=== PATIENT | male | born 1935 | race Caucasian/White ===

== ENCOUNTER 2018-06-07 17:11 | Inpatient (IN) | payer MEDICARE, OTHER ==
--- NOTE | 2018-06-07 18:23 | XRAY Report ---
Reason: fever Procedure Date: 06/07/2018 Accession Number: [id number] / [id number] Procedure: XR - Chest 1 View X-Ray CPT Code: 34111 FULL RESULT: EXAM: CHEST RADIOGRAPHY EXAM DATE: 06/07/2018 05:59 PM. CLINICAL HISTORY: Fever, cough x2 days. COMPARISON: None. TECHNIQUE: 1 view. FINDINGS: Lungs/Pleura: Bilateral bronchial wall thickening and peribronchial opacities most notable in mid lung zones. No confluent consolidation or vascular congestion. Mildly elevated right hemidiaphragm. No pneumothorax or pleural effusion. Mediastinum: Normal heart size. Mildly tortuous aorta. Other: No acute fracture evident. IMPRESSION: 1. Consistent with bronchopneumonia. No segmental consolidation. RADIA
[2018-06-07 18:27] LABS: ALBUMIN 3.6 g/dL (3.2-5.5); ALBUMIN/GLOBULIN RATIO 1.8 (1.0-2.2); BILIRUBIN,TOTAL 1.5 mg/dL (0.2-1.0); CALCIUM 9.6 mg/dL (8.5-10.3); CREATININE 1.4 mg/dL (0.6-1.2); TOTAL PROTEIN 5.6 g/dL (6.7-8.2)
[2018-06-07 18:29] LABS: BILIRUBIN,URINE NEGATIVE (NEGATIVE); GLUCOSE, URINE (UA) NEGATIVE (NEGATIVE); KETONES,URINE (UA) NEGATIVE (NEGATIVE); LEUKOCYTE ESTERASE, URINE SMALL (NEGATIVE); NITRITE,URINE NEGATIVE (NEGATIVE); OCCULT BLOOD,URINE NEGATIVE (NEGATIVE); PH,URINE 7.5 PH (5.0-7.5); PROTEIN,URINE NEGATIVE (NEGATIVE); UROBILINOGEN,URINE 0.2 (NORMAL) E.U./dL (NORMAL)
[2018-06-07] MEDS ORDERED: MORPHINE 2 MG/ML SYRINGE IVP STA (18:30)
[2018-06-07] MEDS ORDERED: SODIUM CHLORIDE 0.9% 1,000 ML IV ONE (18:30)
[2018-06-07] MEDS ORDERED: METOCLOPRAMIDE 10 MG/2 ML VIAL IVP STA (18:30)
[2018-06-07 18:31] LABS: CLARITY,URINE CLEAR (CLEAR)
[2018-06-07 18:42] LABS: BASOPHILS % (AUTO) 0.4 %; EOSINOPHILS % (AUTO) 0.4 %; HGB - HEMOGLOBIN 13.3 g/dL (14.0-18.0); LYMPHOCYTES # (AUTO) 4.2 10^3/uL (1.5-3.5); LYMPHOCYTES % (AUTO) 59.8 %; MEAN CORPUSCULAR HGB CONC 33.2 g/dL (32.0-36.0); MEAN CORPUSCULAR VOLUME 87.2 fL (80.0-94.0); MEAN PLATELET VOLUME 11.1 fL (7.4-11.4); MONOCYTES # (AUTO) 0.6 10^3/uL (0.0-1.0); MONOCYTES % (AUTO) 8.9 %; NEUTROPHILS # (AUTO) 2.2 10^3/uL (1.5-6.6); NEUTROPHILS % (AUTO) 30.5 %; PLT - PLATELET COUNT 54 10^3/uL (130-450); RED BLOOD COUNT 4.58 10^6/uL (4.70-6.10); RED CELL DISTRIBUTION WIDTH 18.7 % (12.0-15.0); WHITE BLOOD COUNT 7.1 x10^3/uL (4.8-10.8)
[2018-06-07 18:42] LABS: BACTERIA,URINE Rare /HPF (None Seen); RBC,URINE None Seen /HPF (0-5); SQUAMOUS EPITHELIAL CELL,UR NONE SEEN (<= Few)
[2018-06-07 18:46] LABS: INR 1.2 (0.8-1.2); PT - PROTHROMBIN TIME 13.7 secs (9.9-12.6)
[2018-06-07] MEDS ORDERED: IOPAMIDOL-300 100 ML VIAL ONE (18:46)
[2018-06-07] MEDS ORDERED: IOPAMIDOL-300 100 ML VIAL IVP ONE (19:01)
[2018-06-07 19:21] LABS: PLATELET ESTIMATE, MANUAL DECREASED (<130,000) (NORMAL); PLATELET MORPHOLOGY 1+ GIANT PLATELETS (NORMAL)
--- NOTE | 2018-06-07 19:45 | CT Report ---
Reason: worsening rectal ulcers and pain Procedure Date: 06/07/2018 Accession Number: [id number] / [id number] Procedure: CT - PELVIS W CPT Code: FULL RESULT: EXAM: CT PELVIS EXAM DATE: 06/07/2018 06:59 PM. CLINICAL HISTORY: Worsening rectal ulcers and pain. COMPARISONS: None. TECHNIQUE: Routine helical CT imaging was performed through the pelvis. IV contrast: ISOVUE 300 100mL. Enteric contrast: No. Reconstructions: Coronal and sagittal. In accordance with CT protocol optimization, one or more of the following dose reduction techniques were utilized for this exam: automated exposure control, adjustment of mA and/or KV based on patient size, or use of iterative reconstructive technique. FINDINGS: Visualized Abdominal Organs: Incompletely visualized markedly enlarged spleen is present. Peritoneal Cavity/Bowel: No free fluid or fluid collection. Intrapelvic large and small bowel demonstrates no obstruction or inflammation. Appendix not definitely identified. No pericecal inflammatory changes. Enlarged left paraaortic node measuring at least 1.4 cm (4/1). Pelvic Organs: Urinary bladder is grossly unremarkable. Enlarged heterogeneous prostate is present. Vasculature: No aneurysms or other significant abnormality. Bones: Right femoral head AVN. Other: No perirectal abscesses. A large right hydrocele is present in the scrotum. IMPRESSION: No perirectal or perianal abscesses seen. CT is limited in evaluation for perianal fistulas. If suspected, nonemergent MRI could be performed. Markedly enlarged spleen and retroperitoneal lymphadenopathy. Etiologies such as lymphoma not excluded. Right femoral head AVN. RADIA
[2018-06-07] MEDS ORDERED: cefTRIAXone 1 GM VIAL IVP STA (20:31)
[2018-06-07] MEDS ORDERED: AZITHROMYCIN INJ 500 MG in SODIUM CHLORIDE 0.9% 250 ML IV STA (20:32)
--- NOTE | 2018-06-07 20:43 | ED Physician Documentation ---
History of Present Illness - Stated complaint Stated Complaint: SENT BY - Chief complaint Chief Complaint: General - Additonal information Additional information: 83-year-old male presents the emergency department with generalized weakness, cough, dyspnea and general fatigue which has progressively worsened. The patient has not been eating or drinking as normal. The patient's is having difficulty managing his symptoms at home. The patient has chronic ulcerations of his buttocks and around his rectum which is currently being managed at [facility]. No reports of fever. Symptoms are described as severe. No other associated symptoms Review of Systems Constitutional: reports: Chills, Fatigue Eyes: denies: Discharge Ears: denies: Ear pain Nose: denies: Congestion Throat: denies: Sore throat Cardiac: denies: Chest pain / pressure Respiratory: reports: Dyspnea, Cough, Wheezing GI: denies: Abdominal Pain : denies: Dysuria Skin: reports: Lesions. denies: Rash Musculoskeletal: denies: Neck pain Neurologic: reports: Generalized weakness PD PAST MEDICAL HISTORY - Past Medical History Past Medical History: Yes Cardiovascular: Hypertension - Past Surgical History Past Surgical History: Yes - Present Medications Home Medications: Ambulatory Orders Medication Instructions Recorded Confirmed Furosemide 20 mg PO DAILY 06/07/18 06/07/18 Mycophenolate Mofetil 500 mg PO DAILY 06/07/18 06/07/18 Potassium Chloride 10 meq PO DAILY 06/07/18 06/07/18 Prednisone 7.5 mg PO DAILY 06/07/18 06/07/18 - Allergies Allergies/Adverse Reactions: Allergies Allergy/AdvReac Type Severity Reaction Status Date / Time Sulfa (Sulfonamide Allergy Emesis Verified 06/07/18 18:14 Antibiotics) - Social History Does the pt smoke?: Yes Smoking Status: Former smoker Does the pt drink ETOH?: No Does the pt have substance abuse?: No - Immunizations Immunizations are current?: Yes PD ED PE NORMAL - General General: Other (83-year-old frail-appearing male who is in no significant acute distress) - HEENT HEENT: Atraumatic, PERRL - Neck Neck: Supple, no meningeal sign - Cardiac Cardiac: RRR, Strong equal pulses - Respiratory Respiratory: No respiratory distress. No: Clear bilaterally (Bilateral rhonchi) - Abdomen Abdomen: Soft, Non tender - Male Male : Other (Significant well-managed decubitus ulcers on the sacrum and around the rectum) - Derm Derm: Normal color - Extremities Extremities: No deformity - Neuro Neuro: Alert and oriented X 3, Normal speech Results - Vitals Vitals: Vital Signs - 24 hr 06/07/18 06/07/18 06/07/18 17:24 18:08 18:30 Temperature 37.2 C 37.7 C H Heart Rate 94 94 90 Respiratory 20 16 16 Rate Blood Pressure 107/67 118/74 116/72 O2 Saturation 97 97 96 06/07/18 06/07/18 06/07/18 19:51 20:00 20:30 Temperature 37.2 C Heart Rate 104 H 107 H 100 Respiratory 20 16 14 Rate Blood Pressure 109/66 93/56 L 89/57 L O2 Saturation 99 99 100 Oxygen O2 Source Nasal cannula - Labs Labs: Laboratory Tests 06/07/18 06/07/18 06/07/18 18:10 18:10 18:10 WBC 7.1 RBC 4.58 L Hgb 13.3 L Hct 39.9 L MCV 87.2 MCH 29.0 MCHC 33.2 RDW 18.7 H Plt Count 54 L MPV 11.1 Neut # (Auto) 2.2 Lymph # (Auto) 4.2 H [place] # (Auto) 0.6 Eos # (Auto) 0.0 Baso # (Auto) 0.0 Absolute Nucleated RBC 0.01 Nucleated RBC % 0.2 Manual Slide Review Indicated Platelet Estimate DECREASED (<130,000) Platelet Morphology 1+ GIANT PLATELETS RBC Morph Micro Appear 1+ TEARDROP CELLS PT 13.7 H INR 1.2 APTT 28.0 Sodium 129 L Potassium 4.3 Chloride 89 L Carbon Dioxide 30 Anion Gap 10.0 BUN 32 H Creatinine 1.4 H Estimated GFR (MDRD) 48 L Glucose 110 H Lactic Acid Calcium 9.6 Magnesium Total Bilirubin 1.5 H AST 48 H ALT 23 Alkaline Phosphatase 133 H Total Protein 5.6 L Albumin 3.6 Globulin 2.0 L Albumin/Globulin Ratio 1.8 Lipase 30 Urine Color Urine Clarity Urine pH Ur Specific [place] Urine Protein Urine Glucose (UA) Urine Ketones Urine Occult Blood Urine Nitrite Urine Bilirubin Urine Urobilinogen Ur Leukocyte Esterase Urine RBC Urine WBC Ur Squamous Epith Cells Urine Bacteria Ur Microscopic Review Urine Culture Comments Infectious [place] Assay Influenza A (Rapid) Influenza B (Rapid) 06/07/18 06/07/18 06/07/18 18:10 18:10 18:10 WBC RBC Hgb Hct MCV MCH MCHC RDW Plt Count MPV Neut # (Auto) Lymph # (Auto) [place] # (Auto) Eos # (Auto) Baso # (Auto) Absolute Nucleated RBC Nucleated RBC % Manual Slide Review Platelet Estimate Platelet Morphology RBC Morph Micro Appear PT INR APTT Sodium Potassium Chloride Carbon Dioxide Anion Gap BUN Creatinine Estimated GFR (MDRD) Glucose Lactic Acid 1.3 Calcium Magnesium 1.7 Total Bilirubin AST ALT Alkaline Phosphatase Total Protein Albumin Globulin Albumin/Globulin Ratio Lipase Urine Color Urine Clarity Urine pH Ur Specific [place] Urine Protein Urine Glucose (UA) Urine Ketones Urine Occult Blood Urine Nitrite Urine Bilirubin Urine Urobilinogen Ur Leukocyte Esterase Urine RBC Urine WBC Ur Squamous Epith Cells Urine Bacteria Ur Microscopic Review Urine Culture Comments Infectious [place] Assay NEGATIVE Influenza A (Rapid) Influenza B (Rapid) 06/07/18 06/07/18 18:22 18:46 WBC RBC Hgb Hct MCV MCH MCHC RDW Plt Count MPV Neut # (Auto) Lymph # (Auto) [place] # (Auto) Eos # (Auto) Baso # (Auto) Absolute Nucleated RBC Nucleated RBC % Manual Slide Review Platelet Estimate Platelet Morphology RBC Morph Micro Appear PT INR APTT Sodium Potassium Chloride Carbon Dioxide Anion Gap BUN Creatinine Estimated GFR (MDRD) Glucose Lactic Acid Calcium Magnesium Total Bilirubin AST ALT Alkaline Phosphatase Total Protein Albumin Globulin Albumin/Globulin Ratio Lipase Urine Color YELLOW Urine Clarity CLEAR Urine pH 7.5 Ur Specific [place] 1.010 Urine Protein NEGATIVE Urine Glucose (UA) NEGATIVE Urine Ketones NEGATIVE Urine Occult Blood NEGATIVE Urine Nitrite NEGATIVE Urine Bilirubin NEGATIVE Urine Urobilinogen 0.2 (NORMAL) Ur Leukocyte Esterase SMALL H Urine RBC None Seen Urine WBC 6-10 H Ur Squamous Epith Cells NONE SEEN Urine Bacteria Rare Ur Microscopic Review INDICATED Urine Culture Comments INDICATED Infectious [place] Assay Influenza A (Rapid) Negative Influenza B (Rapid) Negative - Rads (name of study) CXR Radiology: See rad report (1. Consistent with bronchopneumonia. No segmental consolidation. ) CT pelvis Radiology: Final report received, See rad report (IMPRESSION: No perirectal or perianal abscesses seen. CT is limited in evaluation for perianal fistulas. If suspected, nonemergent MRI could be performed. Markedly enlarged spleen and retroperitoneal lymphadenopathy. Etiologies such as lymphoma notexcluded. Right femoral head AVN. ) PD MEDICAL DECISION MAKING - ED course ED course: On reevaluation the patient is resting comfortably and his acute symptoms are most likely secondary to the pneumonia seen on x-ray. Given the patient's multiple comorbidities and decompensation he will require admission to the hospital for ongoing management. I discussed with the patient and his the incidental finding seen on the CT scan and the need for further workup of these lymph nodes and avascular necrosis. They understand and agree. The case was discussed with the hospitalist Dr. Loaiza who accepts the patient onto his service Departure - Departure Disposition: 66 [facility] DC/Xfer Clinical Impression: Abnormal CT of the abdomen, Spleen enlarged, Pulmonary hypertension, Weakness, Hyponatremia, AVN (avascular necrosis of bone) Pneumonia Qualifiers: Pneumonia type: due to unspecified organism Laterality: unspecified laterality Lung location: unspecified part of lung Qualified Code(s): J18.9 - Pneumonia, unspecified organism Decubitus ulcer Qualifiers: Pressure injury location: sacral region Pressure injury stage: stage 2 Qualified Code(s): L89.152 - Pressure ulcer of sacral region, stage 2 Condition: Fair Discharge Date/Time: 06/07/18 21:30
--- NOTE | 2018-06-07 20:50 | HISTORY & PHYSICAL EXAMINATION ---
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 He was found to have a bronchopneumonia see on CXR in ED with midlung zones involvement. 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 His plts were 54K lowest he has been, and was somewhat dehydrates with a cr 1.4, tbili 1.5 and AST of 48. 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 UA shows a mild cystitis. Patient's blood pressures were on the low side with BP at 98/58 and with another sbp 70's showing a map of 57. IVF's started at 175 ml/hr. Patient will be admitted for bronchopneumonia, sepsis, chronic decubitus ulcers that are nonhealing, Acute kidney injury with dehydration. Patient has a history of systemic lupus erythematosus And on chronic steroids with possible immunosuppression. After admission to the floor patient had a witnessed aspiration event where he become cyanotic and blue to his face, was placed in lateral decubitus and suctioned aggressively, CXR shows increased interstitial opacities R>L, placed on NRB and then NC. IV flagyl plus decadron 10 mg IV x1 was ordered as well as duonebs. History - Past Medical History Cardiovascular: reports: Hypertension MRSA Hx?: No Meds/Allgy - Home Medications Home Medications: Ambulatory Orders Medication Instructions Recorded Confirmed Furosemide 20 mg PO DAILY 06/07/18 06/07/18 Mycophenolate Mofetil 500 mg PO DAILY 06/07/18 06/07/18 Potassium Chloride 10 meq PO DAILY 06/07/18 06/07/18 Prednisone 7.5 mg PO DAILY 06/07/18 06/07/18 - Allergies Allergies/Adverse Reactions: Allergies Allergy/AdvReac Type Severity Reaction Status Date / Time Sulfa (Sulfonamide Allergy Emesis Verified 06/07/18 18:14 Antibiotics) Review of Systems - All Other Systems All Other Systems: reports: Reviewed and negative Prior Level of Functionality: Patient is independent and ambulatory with home ADL's Exam - Vital Signs Reviewed Vital Signs: Yes Vital Signs: Vital Signs x48h Temp Pulse Resp BP Pulse Ox 06/07/18 20:30 100 14 89/57 L 100 06/07/18 20:00 107 H 16 93/56 L 99 06/07/18 19:51 37.2 C 104 H 20 109/66 99 06/07/18 18:30 90 16 116/72 96 06/07/18 18:08 37.7 C H 94 16 118/74 97 06/07/18 17:24 37.2 C 94 20 107/67 97 - Physical Exam General Appearance: positive: No acute distress, Alert, Other (Patient is acutely ill-appearing, on baseline 3 L nasal cannula breathing at 97% o2 saturation) Eyes Bilateral: positive: Normal inspection, PERRL, EOMI ENT: positive: ENT inspection nml, Pharynx nml, Dry mucous membranes Neck: positive: Nml inspection, Thyroid nml, No JVD, Trachea midline. negative: Thyromegaly Respiratory: positive: Chest non-tender, No respiratory distress, Rhonchi Cardiovascular: positive: Regular rate & rhythm, No murmur, No gallop Peripheral Pulses: positive: 2+ Abdomen: positive: Non-tender, No organomegaly, Nml bowel sounds, No distention. negative: Tenderness Back: positive: Nml inspection Skin: positive: Color nml, No rash, Warm, Decubitus (Sacrum pressure ulcer stage II with no necrotic borders, white drainage) Extremities: positive: Non-tender, Full ROM, Nml appearance, No pedal edema. negative: Calf tenderness, Joint swelling Neurologic/Psychiatric: positive: Oriented x3, CN's nml (2-12) Sepsis Event Note (H) - Evaluation Current Stage of Sepsis: Sepsis Possible source of Sepsis: positive: Pulmonary Confirmed Source and Organism (if known) of Sepsis: Confirm source presumedly bronchopneumonia - Sepsis Criteria Sepsis Criteria: Recorded Heart Rate greater than 90 bpm, Hematologic: platelets < 100,000; INR > 1.5, or a PTT>60 seconds Conclusion/Plan - Problem List (1) Sepsis Conclusion/Plan: Patient presented with hypotension to a blood pressure of 98/58 along with source of infection at the level of the lung with bronchopneumonia to mid lungs. Lactic acid was only 1.3. Repeat in 6hrs. Patient had blood cultures and urine cultures drawn although a mild cystitis was seen on UA this is asymptomatic and will not aggressively treat although patient is already can be placed on IV Levaquin to treat atypical/typical pneumonia. Labs and workup to follow. Consider placing on early goal-directed therapy and currently on IV fluids to sustain adequate pressures and a map above 60. Qualifiers: Sepsis type: sepsis due to unspecified organism Qualified Code(s): A41.9 - Sepsis, unspecified organism (2) Acute bronchopneumonia Conclusion/Plan: Patient with several day history of worsening fatigue cough and weakness was found to have mid lung zones affected, Will initiate coverage with IV Levaquin for typical and atypical organisms. Obtain strep rapid and throat cultures as well as mycoplasma IgM/IgG serology as patient in the context of history of lupus and immunocompromised with chronic steroids. Placed on existing oxygen supplementation currently on 3 L nasal cannula, patient is hypotensive with renal manifestation unclear if dehydration versus lupus nephritis. Patient does have thrombocytopenia and may be related to lupus versus acute infection. We will continue to monitor. Duo nebs along with pulmonary toileting and incentive spirometry to be initiated. (3) VANESSA (acute kidney injury) Conclusion/Plan: Patient has existing chronic kidney disease stage II that may be related to hypertensive nephropathy versus lupus nephritis. Currently on maintenance steroids. We will continue to monitor and avoid nephrotoxic agents along with IV fluids. Seems like he is a bit dehydrated with some prerenal azotemia hyponatremia noted. (4) CKD (chronic kidney disease) stage 2, GFR 60-89 ml/min Conclusion/Plan: We will continue to monitor renal function. Patient's baseline creatinine was between 0.9-1.0 on review of past labs. Patient's most recent renal panel comparison in June 04 showed a creatinine of 1.2 may have a underlying component of hypertension with prior history of lupus. (5) Acute dehydration Conclusion/Plan: Continue with IV fluids and correction of underlying electrolyte disturbances. Hypotension seen with underlying sepsis, increase IVF's to 175 ml/hr. (6) Decubitus ulcer Conclusion/Plan: Present on admission. Patient has a pressure ulcer stage II to the sacrum which has been managed at [facility] however referral was placed to wound care here at would be with [facility] service. Will obtain consultation. CT pelvis was performed which showed no evidence of perirectal fistulas or abscesses. There w as incidental findings of right femoral avascular necrosis of the head along with splenomegaly and lymphadenopathy, and a large right hydrocele. Qualifiers: Pressure injury location: sacral region Pressure injury stage: stage 2 Q ualified Code(s): L89.152 - Pressure ulcer of sacral region, stage 2 (7) Hyponatremia Conclusion/Plan: Initiate normal saline at 175 mL/HR. Obtain magnesium level and correct underlying electrolyte disturbances. Serum osmolality and urine osmolality to follow. (8) Splenomegaly Conclusion/Plan: Currently unclear of etiology however suspected infection versus autoimmune process such as systemic lupus for which patient does have a history of, will obtain Monospot for evaluation of mononucleosis as patient is somewhat immunocompromised being on chronic steroids for his lupus suppression. Patient has a 1.4 cm left para-Aortic lymph node which on a differential would be lymphoma. (9) Avascular necrosis of right femoral head Conclusion/Plan: Incidental finding of right femoral avascular necrosis of the head seen on CT pelvis. Will need orthopedic follow-up either inpatient or outpatient. (10) Right hydrocele Conclusion/Plan: Asymptomatic incidental finding and would need follow-up as an outpatient. (11) Lymphadenopathy, abdominal Conclusion/Plan: 1.4 cm left para-aortic lymph node to be followed up as an outpatient. May be related to patient's systemic lupus versus differential of lymphoma. Alternatively, may require interventional radiology biopsy of node. However it would treat infection first before proceeding with this per (13) Hx of systemic lupus erythematosus (SLE) Conclusion/Plan: Patient states that he had pulse steroids with IV given to him in [place] for severe anemia and thrombocytopenia. In review of his June 04 labs his platelets were actually lower than then they are today currently at 54K. Patient denies maculopapular rash, chest pain, bleeding events, or any other symptoms other than his fatigue, cough and weakness. Would continue with his current maintenance steroids along with reconciliation of all other medications. Patient had a prior echocardiogram per history that was essentially normal. His labs on June 04 showed a BNP that was above 200. (14) Immunocompromised due to corticosteroids Conclusion/Plan: Patient has susceptibility opportunistic infections. Blood culture urine culture as well as Monospot, rapid strep as well as throat culture, and labs to follow. Flu a and B were negative on admission. Lactic acid was 1.3. Would cont inue with corticosteroids and the need for pulse steroids if anemia worsens or renal function worsens as well. Mild transaminases as well as T bilirubin 1.5 will obtain a hepatitis viral panel. (15) Advanced care planning/counseling discussion Conclusion/Plan: Patient does not have a POLST in [employer] and advanced care planning and discussion about medical conditions with disease management and trajectory of illness were discussed in length to patient. Patient chooses DNR code. (16) Chronic hypoxemic respiratory failure Conclusion/Plan: Despite patient's existing bronchopneumonia patient remains at 3 L nasal cannula at 97 7% O2 saturation. Patient has underlying pulmonary hypertension. Unclear if systemic lupus has involved the lungs as well. In addition would continue with duo nebs, incentive spirometry, and pulmonary toileting. (17) Aspiration pneumonitis Conclusion/Plan: CXR worsening due type aspiration event, flagyl added to regimen, decadron added x1. - Lab Results Lab results reviewed: Yes Fish Bones: 06/08/18 05:26 06/08/18 05:26 - Diagnostic Imaging Results Diagnostic Imaging Results: positive: Final report reviewed (Pelvic CT reviewed) - EKG Results EKG Interpreted Independently: No Core Measures - Anticipated LOS I expect patient to be DC'd or transferred within 96 hours.: Yes - DVT/VTE - Prophylaxis VTE/DVT Device ordered at admit?: Yes VTE/DVT Prophylaxis med ordered at admit?: No Not Ordered - Medical Reason: Contraindicated (thrombocytopenia <100K) - Stroke - Rehab Assessment Rehab services assessment to be ordered?: No Not Ordered - Medical Reason: Not indicated - AMI - Statin at Admit Aspirin Prescribed on Admit: No Not Ordered - Medical Reason: Not indicated
[2018-06-07] MEDS ORDERED: ONDANSETRON ODT 4 MG TABLET TL PRN (20:54)
[2018-06-07] MEDS ORDERED: SODIUM CHLORIDE FLUSH 0.9% 10 ML SYRINGE IVP PRN (20:54)
[2018-06-07] MEDS ORDERED: ACETAMINOPHEN 325 MG TABLET PO PRN (20:54)
[2018-06-07] MEDS ORDERED: HYDROcod/ACETAM 5/325 MG TABLET PO PRN (20:54)
[2018-06-07] MEDS ORDERED: IPRATROPIUM/ALBUTEROL 3 ML NEB INH PRN (20:58)
[2018-06-07] MEDS ORDERED: SODIUM CHLORIDE 0.9% 1,000 ML IV SCH ×3 (21:00→22:35)
[2018-06-07] MEDS: FAMOTIDINE 20 MG TABLET PO SCH (22:09)
[2018-06-07] MEDS: levoFLOXacin 500 MG/100 ML 500 MG/100 ML BAG IV SCH (22:14)
[2018-06-08] MEDS: SODIUM CHLORIDE FLUSH 0.9% 10 ML SYRINGE IVP SCH ×3 (00:13→17:03)
[2018-06-08] MEDS ORDERED: DEXAMETHASONE 20 MG/5 ML VIAL IVP ONE (00:28)
[2018-06-08] MEDS: SODIUM CHLORIDE 0.9% 1,000 ML IV SCH ×2 (00:30→14:07)
[2018-06-08] MEDS ORDERED: DEXAMETHASONE 4 MG/ML VIAL ONE (00:46)
[2018-06-08] MEDS: metroNIDAZOLE 500 MG/100 ML 500 MG/100 ML BAG IV SCH ×3 (00:49→17:02)
[2018-06-08] MEDS ORDERED: LIDOCAINE JELLY 2% 5 ML TUBE TOP ONE (00:53)
--- NOTE | 2018-06-08 00:56 | PROVIDER PROGRESS NOTE ---
Filters Assembler Note - Filters Assembler Note Filters Assembler Note: A CODE BLUE was called on patient who became severely hypoxemic after an observed aspiration event. Patient Was subsequently repositioned in lateral decubitus as well as applying the Yonker tube for suctioning and then placed on nonrebreather. Initially hypotensive SBP mid 90's with IV fluid rate running at 175 an hour now systolic blood pressures have corrected to 130s. Patient was mildly tachycardic, bilateral lung exams were with right decreased breath sounds expiratory rhonchi and faint bibasilar wheezing. Patient was admitted for bronchopneumonia seen on chest x-ray a repeat chest x-ray shows possible aspiration to the right mid lung right lower lung. Would query on oral pharyngeal dysphasia or silent aspiration. Speech pathology for swallowing evaluation ordered for tomorrow.Patient currently hemodynamically stable. IV Decadron ordered along with addition of Flagyl due to aspiration event. Currently with IV Levaquin for bronchopneumonia. Lidocaine 2% jelly will be applied to sacral pressure to ulcer, POA. Patient's CODE STATUS is DNR.
[2018-06-08] MEDS ORDERED: LIDOCAINE JELLY 2% 30 ML TUBE TOP SCH ×2 (01:00)
--- NOTE | 2018-06-08 01:23 | XRAY Report ---
Reason: aspiration Procedure Date: 06/08/2018 Accession Number: [id number] / [id number] Procedure: XR - Chest 1 View X-Ray CPT Code: 72097 FULL RESULT: EXAM: CHEST RADIOGRAPHY EXAM DATE: 06/08/2018 12:47 AM. CLINICAL HISTORY: Aspiration. COMPARISON: CHEST 1 VIEW 06/07/2018 5:50 PM. TECHNIQUE: 1 view. FINDINGS: Lungs/Pleura: Mild patchy density within the right midlung. Increased interstitial opacities and bronchial wall thickening. No large effusion or pneumothorax. Mediastinum: Heart and mediastinal contours are unremarkable. Other: None. IMPRESSION: Increased interstitial opacities and patchy opacification in the right mid lung may reflect infection. A component of mild edema is not excluded. RADIA
[2018-06-08 05:41] LABS: BASOPHILS % (AUTO) 0.4 %; EOSINOPHILS % (AUTO) 0.1 %; HGB - HEMOGLOBIN 12.9 g/dL (14.0-18.0); LYMPHOCYTES # (AUTO) 2.6 10^3/uL (1.5-3.5); LYMPHOCYTES % (AUTO) 45.2 %; MEAN CORPUSCULAR HEMOGLOBIN 28.7 pg (27.0-31.0); MEAN CORPUSCULAR HGB CONC 32.4 g/dL (32.0-36.0); MEAN CORPUSCULAR VOLUME 88.6 fL (80.0-94.0); MEAN PLATELET VOLUME 10.7 fL (7.4-11.4); MONOCYTES # (AUTO) 0.4 10^3/uL (0.0-1.0); MONOCYTES % (AUTO) 7.2 %; NEUTROPHILS # (AUTO) 2.7 10^3/uL (1.5-6.6); NEUTROPHILS % (AUTO) 47.1 %; PLT - PLATELET COUNT 48 10^3/uL (130-450); RED CELL DISTRIBUTION WIDTH 18.7 % (12.0-15.0); WHITE BLOOD COUNT 5.8 x10^3/uL (4.8-10.8)
[2018-06-08 05:59] LABS: ALBUMIN 3.2 g/dL (3.2-5.5); ALBUMIN/GLOBULIN RATIO 1.5 (1.0-2.2); BILIRUBIN,TOTAL 1.1 mg/dL (0.2-1.0); CALCIUM 9.2 mg/dL (8.5-10.3); CREATININE 1.7 mg/dL (0.6-1.2); TOTAL PROTEIN 5.4 g/dL (6.7-8.2)
[2018-06-08] MEDS: predniSONE 5 MG TABLET PO SCH (08:08)
[2018-06-08] MEDS: FAMOTIDINE 20 MG TABLET PO SCH ×2 (08:08→22:11)
[2018-06-08] MEDS: POLYETHYLENE GLYCOL 3350 17 GM PACKET PO SCH (08:09)
[2018-06-08] MEDS ORDERED: MYCOPHENOLATE MOFETIL 250 MG CAPSULE PO SCH (09:00)
[2018-06-08 14:43] LABS: CREATININE 1.5 mg/dL (0.6-1.2)
[2018-06-08] MEDS ORDERED: LIDOCAINE JELLY 2% 5 ML TUBE TOP PRN (14:49)
--- NOTE | 2018-06-08 17:43 | PROVIDER PROGRESS NOTE ---
Subjective - Prog Note Date Prog Note Date: 06/08/18 Prog Note Time: 17:42 - Subjective Pt reports feeling: Improved Objective - Vital Signs/Intake & Output Vital Signs: Vital Signs x48h Temp Pulse Pulse Pulse Resp BP BP 06/08/18 16:40 83 16 06/08/18 15:36 36.5 C 78 24 110/68 06/08/18 11:35 78 116/72 06/08/18 09:45 83 18 Pulse Ox 06/08/18 16:40 06/08/18 15:36 100 06/08/18 11:35 06/08/18 09:45 Intake & Output: Intake & Output 06/05/18 06/06/18 06/07/18 06/08/18 23:59 23:59 23:59 23:59 Intake Total 1250 5000 Output Total 375 Balance 1250 4625 - Lab Results Fish Bones: 06/08/18 05:26 06/08/18 14:25 Other Labs: Lab Results x24hrs 06/08/18 06/08/18 06/08/18 Range/Units 14:25 14:25 05:26 WBC (4.8-10.8) x10^3/uL RBC (4.70-6.10) 10^6/uL Hgb (14.0-18.0) g/dL Hct (42.0-52.0) % MCV (80.0-94.0) fL MCH (27.0-31.0) pg MCHC (32.0-36.0) g/dL RDW (12.0-15.0) % Plt Count (130-450) 10^3/uL MPV (7.4-11.4) fL Neut # (Auto) (1.5-6.6) 10^3/uL Lymph # (Auto) (1.5-3.5) 10^3/uL [place] # (Auto) (0.0-1.0) 10^3/uL Eos # (Auto) (0.0-0.7) 10^3/uL Baso # (Auto) (0.0-0.1) 10^3/uL Absolute Nucleated RBC x10^3/uL Nucleated RBC % /100WBC Manual Slide Review Platelet Estimate (NORMAL) Platelet Morphology (NORMAL) RBC Morph Micro Appear (NORMAL) PT (9.9-12.6) secs INR (0.8-1.2) APTT (24.9-33.3) secs Sodium 133 L 133 L (135-145) mmol/L Potassium 4.3 4.5 (3.5-5.0) mmol/L Chloride 95 L 93 L (101-111) mmol/L Carbon Dioxide 27 29 (21-32) mmol/L Anion Gap 11.0 11.0 (6-13) BUN 34 H 37 H (6-20) mg/dL Creatinine 1.5 H 1.7 H (0.6-1.2) mg/dL Estimated GFR (MDRD) 45 L 39 L (>89) Glucose 186 H 145 H (70-100) mg/dL Lactic Acid 2.8 H (0.5-2.2) mmol/L Calcium 9.0 9.2 (8.5-10.3) mg/dL Magnesium (1.7-2.8) mg/dL Total Bilirubin 1.1 H (0.2-1.0) mg/dL AST 52 H (10-42) IU/L ALT 24 (10-60) IU/L Alkaline Phosphatase 117 (42-121) IU/L Total Protein 5.4 L (6.7-8.2) g/dL Albumin 3.2 (3.2-5.5) g/dL Globulin 2.2 (2.1-4.2) g/dL Albumin/Globulin Ratio 1.5 (1.0-2.2) Lipase (22-51) U/L Urine Color Urine Clarity (CLEAR) Urine pH (5.0-7.5) PH Ur Specific [place] (1.002-1.030) Urine Protein (NEGATIVE) mg/dL Urine Glucose (UA) (NEGATIVE) mg/dL Urine Ketones (NEGATIVE) mg/dL Urine Occult Blood (NEGATIVE) Urine Nitrite (NEGATIVE) Urine Bilirubin (NEGATIVE) Urine Urobilinogen (NORMAL) E.U./dL Ur Leukocyte Esterase (NEGATIVE) Urine RBC (0-5) /HPF Urine WBC (0-3) /HPF Ur Squamous Epith Cells (<= Few) Urine Bacteria (None Seen) /HPF Ur Microscopic Review Urine Culture Comments Infectious [place] Assay (Negative) Influenza A (Rapid) (Negative) Influenza B (Rapid) (Negative) Group A Strep Rapid (Negative) 06/08/18 06/08/18 06/07/18 Range/Units 05:26 00:30 23:05 WBC 5.8 (4.8-10.8) x10^3/uL RBC 4.50 L (4.70-6.10) 10^6/uL Hgb 12.9 L (14.0-18.0) g/dL Hct 39.8 L (42.0-52.0) % MCV 88.6 (80.0-94.0) fL MCH 28.7 (27.0-31.0) pg MCHC 32.4 (32.0-36.0) g/dL RDW 18.7 H (12.0-15.0) % Plt Count 48 L (130-450) 10^3/uL MPV 10.7 (7.4-11.4) fL Neut # (Auto) 2.7 (1.5-6.6) 10^3/uL Lymph # (Auto) 2.6 (1.5-3.5) 10^3/uL [place] # (Auto) 0.4 (0.0-1.0) 10^3/uL Eos # (Auto) 0.0 (0.0-0.7) 10^3/uL Baso # (Auto) 0.0 (0.0-0.1) 10^3/uL Absolute Nucleated RBC 0.01 x10^3/uL Nucleated RBC % 0.1 /100WBC Manual Slide Review Platelet Estimate (NORMAL) Platelet Morphology (NORMAL) RBC Morph Micro Appear (NORMAL) PT (9.9-12.6) secs INR (0.8-1.2) APTT (24.9-33.3) secs Sodium (135-145) mmol/L Potassium (3.5-5.0) mmol/L Chloride (101-111) mmol/L Carbon Dioxide (21-32) mmol/L Anion Gap (6-13) BUN (6-20) mg/dL Creatinine (0.6-1.2) mg/dL Estimated GFR (MDRD) (>89) Glucose (70-100) mg/dL Lactic Acid 3.9 H* (0.5-2.2) mmol/L Calcium (8.5-10.3) mg/dL Magnesium (1.7-2.8) mg/dL Total Bilirubin (0.2-1.0) mg/dL AST (10-42) IU/L ALT (10-60) IU/L Alkaline Phosphatase (42-121) IU/L Total Protein (6.7-8.2) g/dL Albumin (3.2-5.5) g/dL Globulin (2.1-4.2) g/dL Albumin/Globulin Ratio (1.0-2.2) Lipase (22-51) U/L Urine Color Urine Clarity (CLEAR) Urine pH (5.0-7.5) PH Ur Specific [place] (1.002-1.030) Urine Protein (NEGATIVE) mg/dL Urine Glucose (UA) (NEGATIVE) mg/dL Urine Ketones (NEGATIVE) mg/dL Urine Occult Blood (NEGATIVE) Urine Nitrite (NEGATIVE) Urine Bilirubin (NEGATIVE) Urine Urobilinogen (NORMAL) E.U./dL Ur Leukocyte Esterase (NEGATIVE) Urine RBC (0-5) /HPF Urine WBC (0-3) /HPF Ur Squamous Epith Cells (<= Few) Urine Bacteria (None Seen) /HPF Ur Microscopic Review Urine Culture Comments Infectious [place] Assay (Negative) Influenza A (Rapid) (Negative) Influenza B (Rapid) (Negative) Group A Strep Rapid Negative (Negative) 06/07/18 06/07/18 06/07/18 Range/Units 18:46 18:22 18:10 WBC (4.8-10.8) x10^3/uL RBC (4.70-6.10) 10^6/uL Hgb (14.0-18.0) g/dL Hct (42.0-52.0) % MCV (80.0-94.0) fL MCH (27.0-31.0) pg MCHC (32.0-36.0) g/dL RDW (12.0-15.0) % Plt Count (130-450) 10^3/uL MPV (7.4-11.4) fL Neut # (Auto) (1.5-6.6) 10^3/uL Lymph # (Auto) (1.5-3.5) 10^3/uL [place] # (Auto) (0.0-1.0) 10^3/uL Eos # (Auto) (0.0-0.7) 10^3/uL Baso # (Auto) (0.0-0.1) 10^3/uL Absolute Nucleated RBC x10^3/uL Nucleated RBC % /100WBC Manual Slide Review Platelet Estimate (NORMAL) Platelet Morphology (NORMAL) RBC Morph Micro Appear (NORMAL) PT (9.9-12.6) secs INR (0.8-1.2) APTT (24.9-33.3) secs Sodium (135-145) mmol/L Potassium (3.5-5.0) mmol/L Chloride (101-111) mmol/L Carbon Dioxide (21-32) mmol/L Anion Gap (6-13) BUN (6-20) mg/dL Creatinine (0.6-1.2) mg/dL Estimated GFR (MDRD) (>89) Glucose (70-100) mg/dL Lactic Acid (0.5-2.2) mmol/L Calcium (8.5-10.3) mg/dL Magnesium 1.7 (1.7-2.8) mg/dL Total Bilirubin (0.2-1.0) mg/dL AST (10-42) IU/L ALT (10-60) IU/L Alkaline Phosphatase (42-121) IU/L Total Protein (6.7-8.2) g/dL Albumin (3.2-5.5) g/dL Globulin (2.1-4.2) g/dL Albumin/Globulin Ratio (1.0-2.2) Lipase (22-51) U/L Urine Color YELLOW Urine Clarity CLEAR (CLEAR) Urine pH 7.5 (5.0-7.5) PH Ur Specific [place] 1.010 (1.002-1.030) Urine Protein NEGATIVE (NEGATIVE) mg/dL Urine Glucose (UA) NEGATIVE (NEGATIVE) mg/dL Urine Ketones NEGATIVE (NEGATIVE) mg/dL Urine Occult Blood NEGATIVE (NEGATIVE) Urine Nitrite NEGATIVE (NEGATIVE) Urine Bilirubin NEGATIVE (NEGATIVE) Urine Urobilinogen 0.2 (NORMAL) (NORMAL) E.U./dL Ur Leukocyte Esterase SMALL H (NEGATIVE) Urine RBC None Seen (0-5) /HPF Urine WBC 6-10 H (0-3) /HPF Ur Squamous Epith Cells NONE SEEN (<= Few) Urine Bacteria Rare (None Seen) /HPF Ur Microscopic Review INDICATED Urine Culture Comments INDICATED Infectious [place] Assay (Negative) Influenza A (Rapid) Negative (Negative) Influenza B (Rapid) Negative (Negative) Group A Strep Rapid (Negative) 06/07/18 06/07/18 06/07/18 Range/Units 18:10 18:10 18:10 WBC (4.8-10.8) x10^3/uL RBC (4.70-6.10) 10^6/uL Hgb (14.0-18.0) g/dL Hct (42.0-52.0) % MCV (80.0-94.0) fL MCH (27.0-31.0) pg MCHC (32.0-36.0) g/dL RDW (12.0-15.0) % Plt Count (130-450) 10^3/uL MPV (7.4-11.4) fL Neut # (Auto) (1.5-6.6) 10^3/uL Lymph # (Auto) (1.5-3.5) 10^3/uL [place] # (Auto) (0.0-1.0) 10^3/uL Eos # (Auto) (0.0-0.7) 10^3/uL Baso # (Auto) (0.0-0.1) 10^3/uL Absolute Nucleated RBC x10^3/uL Nucleated RBC % /100WBC Manual Slide Review Platelet Estimate (NORMAL) Platelet Morphology (NORMAL) RBC Morph Micro Appear (NORMAL) PT (9.9-12.6) secs INR (0.8-1.2) APTT (24.9-33.3) secs Sodium 129 L (135-145) mmol/L Potassium 4.3 (3.5-5.0) mmol/L Chloride 89 L (101-111) mmol/L Carbon Dioxide 30 (21-32) mmol/L Anion Gap 10.0 (6-13) BUN 32 H (6-20) mg/dL Creatinine 1.4 H (0.6-1.2) mg/dL Estimated GFR (MDRD) 48 L (>89) Glucose 110 H (70-100) mg/dL Lactic Acid 1.3 (0.5-2.2) mmol/L Calcium 9.6 (8.5-10.3) mg/dL Magnesium (1.7-2.8) mg/dL Total Bilirubin 1.5 H (0.2-1.0) mg/dL AST 48 H (10-42) IU/L ALT 23 (10-60) IU/L Alkaline Phosphatase 133 H (42-121) IU/L Total Protein 5.6 L (6.7-8.2) g/dL Albumin 3.6 (3.2-5.5) g/dL Globulin 2.0 L (2.1-4.2) g/dL Albumin/Globulin Ratio 1.8 (1.0-2.2) Lipase 30 (22-51) U/L Urine Color Urine Clarity (CLEAR) Urine pH (5.0-7.5) PH Ur Specific [place] (1.002-1.030) Urine Protein (NEGATIVE) mg/dL Urine Glucose (UA) (NEGATIVE) mg/dL Urine Ketones (NEGATIVE) mg/dL Urine Occult Blood (NEGATIVE) Urine Nitrite (NEGATIVE) Urine Bilirubin (NEGATIVE) Urine Urobilinogen (NORMAL) E.U./dL Ur Leukocyte Esterase (NEGATIVE) Urine RBC (0-5) /HPF Urine WBC (0-3) /HPF Ur Squamous Epith Cells (<= Few) Urine Bacteria (None Seen) /HPF Ur Microscopic Review Urine Culture Comments Infectious [place] Assay NEGATIVE (Negative) Influenza A (Rapid) (Negative) Influenza B (Rapid) (Negative) Group A Strep Rapid (Negative) 06/07/18 06/07/18 Range/Units 18:10 18:10 WBC 7.1 (4.8-10.8) x10^3/uL RBC 4.58 L (4.70-6.10) 10^6/uL Hgb 13.3 L (14.0-18.0) g/dL Hct 39.9 L (42.0-52.0) % MCV 87.2 (80.0-94.0) fL MCH 29.0 (27.0-31.0) pg MCHC 33.2 (32.0-36.0) g/dL RDW 18.7 H (12.0-15.0) % Plt Count 54 L (130-450) 10^3/uL MPV 11.1 (7.4-11.4) fL Neut # (Auto) 2.2 (1.5-6.6) 10^3/uL Lymph # (Auto) 4.2 H (1.5-3.5) 10^3/uL [place] # (Auto) 0.6 (0.0-1.0) 10^3/uL Eos # (Auto) 0.0 (0.0-0.7) 10^3/uL Baso # (Auto) 0.0 (0.0-0.1) 10^3/uL Absolute Nucleated RBC 0.01 x10^3/uL Nucleated RBC % 0.2 /100WBC Manual Slide Review Indicated Platelet Estimate DECREASED (<130,000) (NORMAL) Platelet Morphology 1+ GIANT PLATELETS (NORMAL) RBC Morph Micro Appear 1+ TEARDROP CELLS (NORMAL) PT 13.7 H (9.9-12.6) secs INR 1.2 (0.8-1.2) APTT 28.0 (24.9-33.3) secs Sodium (135-145) mmol/L Potassium (3.5-5.0) mmol/L Chloride (101-111) mmol/L Carbon Dioxide (21-32) mmol/L Anion Gap (6-13) BUN (6-20) mg/dL Creatinine (0.6-1.2) mg/dL Estimated GFR (MDRD) (>89) Glucose (70-100) mg/dL Lactic Acid (0.5-2.2) mmol/L Calcium (8.5-10.3) mg/dL Magnesium (1.7-2.8) mg/dL Total Bilirubin (0.2-1.0) mg/dL AST (10-42) IU/L ALT (10-60) IU/L Alkaline Phosphatase (42-121) IU/L Total Protein (6.7-8.2) g/dL Albumin (3.2-5.5) g/dL Globulin (2.1-4.2) g/dL Albumin/Globulin Ratio (1.0-2.2) Lipase (22-51) U/L Urine Color Urine Clarity (CLEAR) Urine pH (5.0-7.5) PH Ur Specific [place] (1.002-1.030) Urine Protein (NEGATIVE) mg/dL Urine Glucose (UA) (NEGATIVE) mg/dL Urine Ketones (NEGATIVE) mg/dL Urine Occult Blood (NEGATIVE) Urine Nitrite (NEGATIVE) Urine Bilirubin (NEGATIVE) Urine Urobilinogen (NORMAL) E.U./dL Ur Leukocyte Esterase (NEGATIVE) Urine RBC (0-5) /HPF Urine WBC (0-3) /HPF Ur Squamous Epith Cells (<= Few) Urine Bacteria (None Seen) /HPF Ur Microscopic Review Urine Culture Comments Infectious [place] Assay (Negative) Influenza A (Rapid) (Negative) Influenza B (Rapid) (Negative) Group A Strep Rapid (Negative) Sepsis Event Note (H) - Evaluation Current Stage of Sepsis: Sepsis Possible source of Sepsis: positive: Pulmonary - Sepsis Criteria Sepsis Criteria: Recorded Heart Rate greater than 90 bpm, Hematologic: platelets < 100,000; INR > 1.5, or a PTT>60 seconds
--- NOTE | 2018-06-08 17:58 | ADVANCE CARE PLANNING NOTE ---
Advance Care Planning - Date/Time Date: 06/08/18 Time: 10:00 - Purpose of encounter Text: establish his understanding of his disease and goals for care - Parties in attendance Parties in attendance: and patient - Decisional capacity Decisional capacity of: patient is intact. Alert and oriented. lucid historian. speech normal. 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 [place] came [place] the [place] . And is lived there since. 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 He and his also travel quite a bit. But the last time he was able to successfully travel any great distance was August 2017 when he was traveling through [place], [place] visiting friends. That trip came to an abrupt and when he had to be hospitalized. Up until the age of 79 he was considered a very andrews and hearty gentleman who looks like he was 69. His main medical problems up until that point was lupus. He has had 2 flares 30 years apart. 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 30 years before that he had a flare with severe diffuse small joint arthritis including pain, swelling, effusions and heat of the joints of his hands, feet, and look for all the world like he had rheumatoid arthritis. He started having insidious dyspnea on exertion about 4 years ago. He thought he was just getting older and really did not think much about it. That lasted for about 2 years and when his endurance finally was reduced enough that it alarmed him, he was seen by pulmonology and he has pulmonary hypertension. He is usually followed by Felix Parham at [facility]. Phone number [phone]. Fax number [phone]. The last time he had "a normal day" was 2 years ago. He has too much dyspnea on exertion. He is on home O2. Is able to dress himself, feed himself. His is a phenomenal cook and he enjoys her cooking. If he sits on the ground, and kneels, he is able to eat in the garden. But he is no longer to do much more than that. He does live on a two-story [place]. The top level is a fully functional area with a master bedroom, kitchen, living room, dining room and you can pull up to the door. The bottom floor is another fully functional house with its own bathroom, kitchen. In the driveway that is in the front door on top can then swing around to come down to the bottom door on the bottom. They use to rent out the bottom floor as of [email or web address] every summer. But this month they have decided to do something different. His disability is getting worse and worse. About 6 weeks ago he had a sudden burst of wetness in his pants and had a painful coccyx. He was found to have decubitus ulcers. He reluctantly admits that he has probably been sitting too much over time. He also notes that he has been having night sweats. He is also lost about 40 pounds. The first 20 pounds was delivered because he cut back on his eating. But then he resumed his usual eating and is been eating even more to gain weight and he continues to lose weight. Overall he says he is lost about 40 pounds and continues to have night sweats. He denies cough, adenopathy, change in bowel habits or change in urinary habits. So they have hired a couple that now lives in the bottom floor since May 21. The is a senior label specialist and is now taking care of all the Gardens around the house. The is a massage therapist and will be responsible for upkeep of the house with regards to housekeeping, laundry, light chores. As time progresses and he becomes more and more disabled the plan on using her as a an in-home care provider. While his quality of life is not what he wants it to be, he is happy. He still able to sit on the ground, do some weeding. Still travel a little bit and they have a trip planned for a wedding of a granddaughter in November near [place], [place]. He plans on asking Dr. Parham for a letter to get on the plane with his oxygen tank. He has not really thought about how much disability he is willing to live with. He knows he is a DO NOT RESUSCITATE. But he has not thought about lack of mobility, decreased endurance, or physical restrictions as an end point. For instance, I asked him if he was willing to still want to be with us and seek treatment if he was completely bedbound and no longer able to get out of bed, c ompletely dependent for diaper change, feeding, etc. Again, he said he never really thought about it. His interjects that they are starting to get overwhelmed. They have made these plans with the new careproviders so that they can plan for the future but she fears the future and what it holds. She has been asking for palliative care from his wheel borer. She feels like there is a generational thought process going on where the younger doctors seem uncomfortable to be discussing advance care planning and end-of-life. 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 He was found to have a bronchopneumonia see on CXR in ED with midlung zones involvement. 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 His plts were 54K lowest he has been, and was somewhat dehydrates with a cr 1.4, tbili 1.5 and AST of 48. 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 UA shows a mild cystitis. Patient's blood pressures were on the low side with BP at 98/58 and with another sbp 70's showing a map of 57. IVF's started at 175 ml/hr. Patient will be admitted for bronchopneumonia, sepsis, chronic decubitus ulcers that are nonhealing, Acute kidney injury with dehydration. Patient has a history of systemic lupus erythematosus And on chronic steroids with possible immunosuppression. After admission to the floor patient had a witnessed aspiration event where he become cyanotic and blue to his face, was placed in lateral decubitus and suctioned aggressively, CXR shows increased interstitial opacities R>L, placed on NRB and then NC. IV flagyl plus decadron 10 mg IV x1 was ordered as well as duonebs. History - Past Medical History Cardiovascular: reports: Hypertension MRSA Hx?: No - Goals of Care Goals of care determinations: He wants to remain in his home indefinitely. He has no plans on leaving it. He and his structure the house that he can remain independent for as long as possible in spite of his physical disability and pulmonary disability. They have taken the next step of hiring in-home care providers. Is only been 3 or 4 weeks but they are hoping this will work out. He is already taken the steps to stating that he is a DO NOT RESUSCITATE and it has advanced care directives at home. He wants to make it to his granddaughter's wedding in [place]. He wants to get out of the garden this spring. Sit in the ground, kneeling on the ground, and do the weeding. - Plan Plan: At this time, I have commended him on his planning. He and his have done a great job getting to this point. I explained to him that he is way more ahead of the game the most of the patient's I take care of. The next step for him is to get that letter from his wheel borer to make sure he can get on the plane to get to [facility]. I would like him to bring in his advance directives from home so we can scan those into the medical record. I would like he and his , and his children to have a conversation about how he defines quality of life. At what point and what amount of disability will he ask us to call it quits. Share that discussion with his wheel borer as well as someone like me in the hospital. I will make sure that he gets palliative care consultation when he leaves the hospital. When I described the services from the pulmonary palliative care team his is delighted. She feels they are exactly what she needs to help her to help him in the next few months. They are already frankly discussing what it would mean to be in hospice and would like to have that option to decide through palliative care when the time comes. I would ask him to discuss his weight loss and sweats with his wheel borer. His wheel borer may want to refer him to rheumatology to make sure this is not a lupus flare. I also explained to the patient that this could be a sign of neoplasm and we should investigate that now as well as in the outpatient setting. - Code Status Code Status: Do Not Attempt Resuscitation - Time Spent on Advance Care Planning Time spent on advance care plannin hour
--- NOTE | 2018-06-08 18:21 | PROVIDER PROGRESS NOTE ---
Subjective - Prog Note Date Prog Note Date: 06/08/18 Prog Note Time: 18:20 - Subjective Pt reports feeling: Improved Subjective: Although he is tired, still coughing and has chest congestion, he says that he feels a lot better than he did last night. Phlegm is daily, worse over the last few days. But no change in color. Denies urgency, frequency dysuria. Coccyx hurts a little bit with sacral decubitus is. But not any worse than usual. He wants to know if he can use CBD oil and he also wants lidocaine jelly to be applied where it is painful. He uses lidocaine butter at home. Current Medications - Current Medications Current Medications: Active Medications Acetaminophen (Tylenol) 650 mg PO Q4HR PRN PRN Reason: Pain 1 to 4 Hydrocodone Bitart/Acetaminophen (Blanco 5/325) 1 tab PO Q4HR PRN PRN Reason: Pain 5 to 7 Albuterol/Ipratropium (Duoneb) 3 ml INH Q4HR PRN PRN Reason: Wheezing Calcium Carbonate/Glycine (Tums) 500 mg PO DAILY [facility] Cholecalciferol (Vitamin D3) 2,000 unit PO DAILY [facility] Famotidine (Pepcid) 20 mg PO BID [facility] Last Admin: 06/08/18 08:08 Dose: 20 mg Levofloxacin (Levaquin 500 Mg/100 Ml) 500 mg in 100 mls @ 100 mls/hr IV Q24H [facility] Last Infusion: 06/08/18 09:25 Dose: Infused Metronidazole (Flagyl 500 Mg/100 Ml) 500 mg in 100 mls @ 100 mls/hr IV Q8H [facility] Last Admin: 06/08/18 17:02 Dose: 100 mls/hr Sodium Chloride (Normal Saline 0.9%) 1,000 mls @ 75 mls/hr IV .[id number] [facility] Last Admin: 06/08/18 14:07 Dose: 75 mls/hr Lidocaine HCl (Xylocaine Jelly 2%) 1 ml TOP Q6H PRN PRN Reason: PAIN Multivitamins (Theragran) 1 tab PO DAILYWM [facility] Mycophenolate Mofetil () 500 mg PO 0700,2100 [facility] Ondansetron HCl (Zofran Odt) 4 mg TL Q6HR PRN PRN Reason: Nausea / Vomiting Polyethylene Glycol (Miralax) 17 gm PO DAILY [facility] Last Admin: 06/08/18 08:09 Dose: Not Given Prednisone (Deltasone) 7.5 mg PO DAILY [facility] Last Admin: 06/08/18 08:08 Dose: 7.5 mg Sodium Chloride (Normal Saline Flush 0.9%) 10 ml IVP PRN PRN PRN Reason: NEEDED PER PROVIDER ORDERS Sodium Chloride (Normal Saline Flush 0.9%) 10 ml IVP 0100,0900,1700 [facility] Last Admin: 06/08/18 17:03 Dose: 10 ml Furosemide 20 mg PO DAILY 06/07/18 Mycophenolate Mofetil 500 mg PO 0700,2100 06/07/18 Potassium Chloride 10 meq PO DAILY 06/07/18 Prednisone 7.5 mg PO DAILY 06/07/18 Objective - Vital Signs/Intake & Output Reviewed Vital Signs: Yes Vital Signs: Vital Signs x48h Temp Pulse Pulse Pulse Resp BP BP 06/08/18 16:40 83 16 06/08/18 15:36 36.5 C 78 24 110/68 06/08/18 11:35 78 116/72 Pulse Ox 06/08/18 16:40 06/08/18 15:36 100 06/08/18 11:35 Intake & Output: Intake & Output 06/05/18 06/06/18 06/07/18 06/08/18 23:59 23:59 23:59 23:59 Intake Total 1250 5000 Output Total 375 Balance 1250 4625 - Objective General Appearance: positive: No acute distress, Alert, Other (face mask on, lay ing at 30 degrees in bed, at bedside, tired but no sob, thin white male who looks stated age) Eyes Bilateral: positive: PERRL ENT: positive: Dry mucous membranes Neck: positive: No JVD. negative: Stiff neck, Carotid bruit Respiratory: positive: Chest non-tender, Wheezes, Rales (diffusely). negative: Rhonchi Cardiovascular: positive: Regular rate & rhythm, Systolic murmur. negative: Gallop/S4, Friction rub Abdomen: positive: Non-tender, No organomegaly, Nml bowel sounds, No distention Skin: positive: Warm, Dry, Pallor Extremities: positive: Non-tender, No pedal edema Neurologic/Psychiatric: positive: Oriented x3, CN's nml (2-12), Motor nml, Weakness - Lab Results Fish Bones: 06/08/18 05:26 06/08/18 14:25 Other Labs: Lab Results x24hrs 06/08/18 06/08/18 06/08/18 Range/Units 14:25 14:25 05:26 WBC (4.8-10.8) x10^3/uL RBC (4.70-6.10) 10^6/uL Hgb (14.0-18.0) g/dL Hct (42.0-52.0) % MCV (80.0-94.0) fL MCH (27.0-31.0) pg MCHC (32.0-36.0) g/dL RDW (12.0-15.0) % Plt Count (130-450) 10^3/uL MPV (7.4-11.4) fL Neut # (Auto) (1.5-6.6) 10^3/uL Lymph # (Auto) (1.5-3.5) 10^3/uL Dawes # (Auto) (0.0-1.0) 10^3/uL Eos # (Auto) (0.0-0.7) 10^3/uL Baso # (Auto) (0.0-0.1) 10^3/uL Absolute Nucleated RBC x10^3/uL Nucleated RBC % /100WBC Manual Slide Review Platelet Estimate (NORMAL) Platelet Morphology (NORMAL) RBC Morph Micro Appear (NORMAL) PT (9.9-12.6) secs INR (0.8-1.2) APTT (24.9-33.3) secs Sodium 133 L 133 L (135-145) mmol/L Potassium 4.3 4.5 (3.5-5.0) mmol/L Chloride 95 L 93 L (101-111) mmol/L Carbon Dioxide 27 29 (21-32) mmol/L Anion Gap 11.0 11.0 (6-13) BUN 34 H 37 H (6-20) mg/dL Creatinine 1.5 H 1.7 H (0.6-1.2) mg/dL Estimated GFR (MDRD) 45 L 39 L (>89) Glucose 186 H 145 H (70-100) mg/dL Lactic Acid 2.8 H (0.5-2.2) mmol/L Calcium 9.0 9.2 (8.5-10.3) mg/dL Magnesium (1.7-2.8) mg/dL Total Bilirubin 1.1 H (0.2-1.0) mg/dL AST 52 H (10-42) IU/L ALT 24 (10-60) IU/L Alkaline Phosphatase 117 (42-121) IU/L Total Protein 5.4 L (6.7-8.2) g/dL Albumin 3.2 (3.2-5.5) g/dL Globulin 2.2 (2.1-4.2) g/dL Albumin/Globulin Ratio 1.5 (1.0-2.2) Lipase (22-51) U/L Urine Color Urine Clarity (CLEAR) Urine pH (5.0-7.5) PH Ur Specific Coleman (1.002-1.030) Urine Protein (NEGATIVE) mg/dL Urine Glucose (UA) (NEGATIVE) mg/dL Urine Ketones (NEGATIVE) mg/dL Urine Occult Blood (NEGATIVE) Urine Nitrite (NEGATIVE) Urine Bilirubin (NEGATIVE) Urine Urobilinogen (NORMAL) E.U./dL Ur Leukocyte Esterase (NEGATIVE) Urine RBC (0-5) /HPF Urine WBC (0-3) /HPF Ur Squamous Epith Cells (<= Few) Urine Bacteria (None Seen) /HPF Ur Microscopic Review Urine Culture Comments Infectious Dawes Assay (Negative) Influenza A (Rapid) (Negative) Influenza B (Rapid) (Negative) Group A Strep Rapid (Negative) 06/08/18 06/08/18 06/07/18 Range/Units 05:26 00:30 23:05 WBC 5.8 (4.8-10.8) x10^3/uL RBC 4.50 L (4.70-6.10) 10^6/uL Hgb 12.9 L (14.0-18.0) g/dL Hct 39.8 L (42.0-52.0) % MCV 88.6 (80.0-94.0) fL MCH 28.7 (27.0-31.0) pg MCHC 32.4 (32.0-36.0) g/dL RDW 18.7 H (12.0-15.0) % Plt Count 48 L (130-450) 10^3/uL MPV 10.7 (7.4-11.4) fL Neut # (Auto) 2.7 (1.5-6.6) 10^3/uL Lymph # (Auto) 2.6 (1.5-3.5) 10^3/uL Dawes # (Auto) 0.4 (0.0-1.0) 10^3/uL Eos # (Auto) 0.0 (0.0-0.7) 10^3/uL Baso # (Auto) 0.0 (0.0-0.1) 10^3/uL Absolute Nucleated RBC 0.01 x10^3/uL Nucleated RBC % 0.1 /100WBC Manual Slide Review Platelet Estimate (NORMAL) Platelet Morphology (NORMAL) RBC Morph Micro Appear (NORMAL) PT (9.9-12.6) secs INR (0.8-1.2) APTT (24.9-33.3) secs Sodium (135-145) mmol/L Potassium (3.5-5.0) mmol/L Chloride (101-111) mmol/L Carbon Dioxide (21-32) mmol/L Anion Gap (6-13) BUN (6-20) mg/dL Creatinine (0.6-1.2) mg/dL Estimated GFR (MDRD) (>89) Glucose (70-100) mg/dL Lactic Acid 3.9 H* (0.5-2.2) mmol/L Calcium (8.5-10.3) mg/dL Magnesium (1.7-2.8) mg/dL Total Bilirubin (0.2-1.0) mg/dL AST (10-42) IU/L ALT (10-60) IU/L Alkaline Phosphatase (42-121) IU/L Total Protein (6.7-8.2) g/dL Albumin (3.2-5.5) g/dL Globulin (2.1-4.2) g/dL Albumin/Globulin Ratio (1.0-2.2) Lipase (22-51) U/L Urine Color Urine Clarity (CLEAR) Urine pH (5.0-7.5) PH Ur Specific Coleman (1.002-1.030) Urine Protein (NEGATIVE) mg/dL Urine Glucose (UA) (NEGATIVE) mg/dL Urine Ketones (NEGATIVE) mg/dL Urine Occult Blood (NEGATIVE) Urine Nitrite (NEGATIVE) Urine Bilirubin (NEGATIVE) Urine Urobilinogen (NORMAL) E.U./dL Ur Leukocyte Esterase (NEGATIVE) Urine RBC (0-5) /HPF Urine WBC (0-3) /HPF Ur Squamous Epith Cells (<= Few) Urine Bacteria (None Seen) /HPF Ur Microscopic Review Urine Culture Comments Infectious Dawes Assay (Negative) Influenza A (Rapid) (Negative) Influenza B (Rapid) (Negative) Group A Strep Rapid Negative (Negative) 06/07/18 06/07/18 06/07/18 Range/Units 18:46 18:22 18:10 WBC (4.8-10.8) x10^3/uL RBC (4.70-6.10) 10^6/uL Hgb (14.0-18.0) g/dL Hct (42.0-52.0) % MCV (80.0-94.0) fL MCH (27.0-31.0) pg MCHC (32.0-36.0) g/dL RDW (12.0-15.0) % Plt Count (130-450) 10^3/uL MPV (7.4-11.4) fL Neut # (Auto) (1.5-6.6) 10^3/uL Lymph # (Auto) (1.5-3.5) 10^3/uL Dawes # (Auto) (0.0-1.0) 10^3/uL Eos # (Auto) (0.0-0.7) 10^3/uL Baso # (Auto) (0.0-0.1) 10^3/uL Absolute Nucleated RBC x10^3/uL Nucleated RBC % /100WBC Manual Slide Review Platelet Estimate (NORMAL) Platelet Morphology (NORMAL) RBC Morph Micro Appear (NORMAL) PT (9.9-12.6) secs INR (0.8-1.2) APTT (24.9-33.3) secs Sodium (135-145) mmol/L Potassium (3.5-5.0) mmol/L Chloride (101-111) mmol/L Carbon Dioxide (21-32) mmol/L Anion Gap (6-13) BUN (6-20) mg/dL Creatinine (0.6-1.2) mg/dL Estimated GFR (MDRD) (>89) Glucose (70-100) mg/dL Lactic Acid (0.5-2.2) mmol/L Calcium (8.5-10.3) mg/dL Magnesium 1.7 (1.7-2.8) mg/dL Total Bilirubin (0.2-1.0) mg/dL AST (10-42) IU/L ALT (10-60) IU/L Alkaline Phosphatase (42-121) IU/L Total Protein (6.7-8.2) g/dL Albumin (3.2-5.5) g/dL Globulin (2.1-4.2) g/dL Albumin/Globulin Ratio (1.0-2.2) Lipase (22-51) U/L Urine Color YELLOW Urine Clarity CLEAR (CLEAR) Urine pH 7.5 (5.0-7.5) PH Ur Specific Coleman 1.010 (1.002-1.030) Urine Protein NEGATIVE (NEGATIVE) mg/dL Urine Glucose (UA) NEGATIVE (NEGATIVE) mg/dL Urine Ketones NEGATIVE (NEGATIVE) mg/dL Urine Occult Blood NEGATIVE (NEGATIVE) Urine Nitrite NEGATIVE (NEGATIVE) Urine Bilirubin NEGATIVE (NEGATIVE) Urine Urobilinogen 0.2 (NORMAL) (NORMAL) E.U./dL Ur Leukocyte Esterase SMALL H (NEGATIVE) Urine RBC None Seen (0-5) /HPF Urine WBC 6-10 H (0-3) /HPF Ur Squamous Epith Cells NONE SEEN (<= Few) Urine Bacteria Rare (None Seen) /HPF Ur Microscopic Review INDICATED Urine Culture Comments INDICATED Infectious Dawes Assay (Negative) Influenza A (Rapid) Negative (Negative) Influenza B (Rapid) Negative (Negative) Group A Strep Rapid (Negative) 06/07/18 06/07/18 06/07/18 Range/Units 18:10 18:10 18:10 WBC (4.8-10.8) x10^3/uL RBC (4.70-6.10) 10^6/uL Hgb (14.0-18.0) g/dL Hct (42.0-52.0) % MCV (80.0-94.0) fL MCH (27.0-31.0) pg MCHC (32.0-36.0) g/dL RDW (12.0-15.0) % Plt Count (130-450) 10^3/uL MPV (7.4-11.4) fL Neut # (Auto) (1.5-6.6) 10^3/uL Lymph # (Auto) (1.5-3.5) 10^3/uL Dawes # (Auto) (0.0-1.0) 10^3/uL Eos # (Auto) (0.0-0.7) 10^3/uL Baso # (Auto) (0.0-0.1) 10^3/uL Absolute Nucleated RBC x10^3/uL Nucleated RBC % /100WBC Manual Slide Review Platelet Estimate (NORMAL) Platelet Morphology (NORMAL) RBC Morph Micro Appear (NORMAL) PT (9.9-12.6) secs INR (0.8-1.2) APTT (24.9-33.3) secs Sodium 129 L (135-145) mmol/L Potassium 4.3 (3.5-5.0) mmol/L Chloride 89 L (101-111) mmol/L Carbon Dioxide 30 (21-32) mmol/L Anion Gap 10.0 (6-13) BUN 32 H (6-20) mg/dL Creatinine 1.4 H (0.6-1.2) mg/dL Estimated GFR (MDRD) 48 L (>89) Glucose 110 H (70-100) mg/dL Lactic Acid 1.3 (0.5-2.2) mmol/L Calcium 9.6 (8.5-10.3) mg/dL Magnesium (1.7-2.8) mg/dL Total Bilirubin 1.5 H (0.2-1.0) mg/dL AST 48 H (10-42) IU/L ALT 23 (10-60) IU/L Alkaline Phosphatase 133 H (42-121) IU/L Total Protein 5.6 L (6.7-8.2) g/dL Albumin 3.6 (3.2-5.5) g/dL Globulin 2.0 L (2.1-4.2) g/dL Albumin/Globulin Ratio 1.8 (1.0-2.2) Lipase 30 (22-51) U/L Urine Color Urine Clarity (CLEAR) Urine pH (5.0-7.5) PH Ur Specific Coleman (1.002-1.030) Urine Protein (NEGATIVE) mg/dL Urine Glucose (UA) (NEGATIVE) mg/dL Urine Ketones (NEGATIVE) mg/dL Urine Occult Blood (NEGATIVE) Urine Nitrite (NEGATIVE) Urine Bilirubin (NEGATIVE) Urine Urobilinogen (NORMAL) E.U./dL Ur Leukocyte Esterase (NEGATIVE) Urine RBC (0-5) /HPF Urine WBC (0-3) /HPF Ur Squamous Epith Cells (<= Few) Urine Bacteria (None Seen) /HPF Ur Microscopic Review Urine Culture Comments Infectious Dawes Assay NEGATIVE (Negative) Influenza A (Rapid) (Negative) Influenza B (Rapid) (Negative) Group A Strep Rapid (Negative) 06/07/18 06/07/18 Range/Units 18:10 18:10 WBC 7.1 (4.8-10.8) x10^3/uL RBC 4.58 L (4.70-6.10) 10^6/uL Hgb 13.3 L (14.0-18.0) g/dL Hct 39.9 L (42.0-52.0) % MCV 87.2 (80.0-94.0) fL MCH 29.0 (27.0-31.0) pg MCHC 33.2 (32.0-36.0) g/dL RDW 18.7 H (12.0-15.0) % Plt Count 54 L (130-450) 10^3/uL MPV 11.1 (7.4-11.4) fL Neut # (Auto) 2.2 (1.5-6.6) 10^3/uL Lymph # (Auto) 4.2 H (1.5-3.5) 10^3/uL Dawes # (Auto) 0.6 (0.0-1.0) 10^3/uL Eos # (Auto) 0.0 (0.0-0.7) 10^3/uL Baso # (Auto) 0.0 (0.0-0.1) 10^3/uL Absolute Nucleated RBC 0.01 x10^3/uL Nucleated RBC % 0.2 /100WBC Manual Slide Review Indicated Platelet Estimate DECREASED (<130,000) (NORMAL) Platelet Morphology 1+ GIANT PLATELETS (NORMAL) RBC Morph Micro Appear 1+ TEARDROP CELLS (NORMAL) PT 13.7 H (9.9-12.6) secs INR 1.2 (0.8-1.2) APTT 28.0 (24.9-33.3) secs Sodium (135-145) mmol/L Potassium (3.5-5.0) mmol/L Chloride (101-111) mmol/L Carbon Dioxide (21-32) mmol/L Anion Gap (6-13) BUN (6-20) mg/dL Creatinine (0.6-1.2) mg/dL Estimated GFR (MDRD) (>89) Glucose (70-100) mg/dL Lactic Acid (0.5-2.2) mmol/L Calcium (8.5-10.3) mg/dL Magnesium (1.7-2.8) mg/dL Total Bilirubin (0.2-1.0) mg/dL AST (10-42) IU/L ALT (10-60) IU/L Alkaline Phosphatase (42-121) IU/L Total Protein (6.7-8.2) g/dL Albumin (3.2-5.5) g/dL Globulin (2.1-4.2) g/dL Albumin/Globulin Ratio (1.0-2.2) Lipase (22-51) U/L Urine Color Urine Clarity (CLEAR) Urine pH (5.0-7.5) PH Ur Specific Coleman (1.002-1.030) Urine Protein (NEGATIVE) mg/dL Urine Glucose (UA) (NEGATIVE) mg/dL Urine Ketones (NEGATIVE) mg/dL Urine Occult Blood (NEGATIVE) Urine Nitrite (NEGATIVE) Urine Bilirubin (NEGATIVE) Urine Urobilinogen (NORMAL) E.U./dL Ur Leukocyte Esterase (NEGATIVE) Urine RBC (0-5) /HPF Urine WBC (0-3) /HPF Ur Squamous Epith Cells (<= Few) Urine Bacteria (None Seen) /HPF Ur Microscopic Review Urine Culture Comments Infectious Dawes Assay (Negative) Influenza A (Rapid) (Negative) Influenza B (Rapid) (Negative) Group A Strep Rapid (Negative) ABX Reporting Has patient been on IV antibiotics over the past 48 hours?: Yes Sepsis Event Note (H) - Evaluation Current Stage of Sepsis: Resolved Possible source of Sepsis: positive: Pulmonary - Sepsis Criteria Sepsis Criteria: Recorded Heart Rate greater than 90 bpm, Respiratory: Increasing oxygen requirements, SBP less than 90 mmHg, Hematologic: platelets < 100,000; INR > 1.5, or a PTT>60 seconds Assessment/Plan - Problem List (1) Sepsis Impression: Resolved. Patient presented with hypotension to a blood pressure of 98/58 along with source of infection at the level of the lung with bronchopneumonia to mid lungs. Lactic acid was only 1.3. Repeat after 6hrs and it went up to 3.9. Patient had blood cultures and urine cultures drawn although a mild cystitis was seen on UA and thought to be asymptomatic and option not aggressively treat although paul ent is already on IV Levaquin to treat atypical/typical pneumonia. Stay on therapy for pneumonia and UTI with levaquin. Lactic acid is still 2.8 this afternoon. Stay on IV fluids to sustain adequate pressures and a map above 60. Will repeat lactic acid until normal. Qualifiers: Sepsis type: sepsis due to unspecified organism Qualified Code(s): A41.9 - Sepsis, unspecified organism (2) Acute bronchopneumonia on admission with superimposed acute respiratory failure with hypoxia after admit due to aspiration Conclusion/Plan: Patient with several day history of worsening fatigue cough and weakness was found to have mid lung zones affected, Will initiate coverage with IV Levaquin for typical and atypical organisms. Obtain strep rapid and throat cultures as well as mycoplasma IgM/IgG serology as patient in the context of history of lupus and immunocompromised with chronic steroids. Placed on existing oxygen supplementation currently on 3 L nasal cannula, patient was hypotensive with r enal manifestation unclear if dehydration versus lupus nephritis. Patient does have thrombocytopenia and may be related to lupus versus acute infection. We will continue to monitor. Duo nebs along with pulmonary toileting and incentive spirometry to be initiated. His episode of aspiration resolved. A CODE BLUE was called but he did not need to be intubated. Overnight he was stable and this morning he is stable with oxygen requirement. Seen by Speech therapy: Patient has an entirely unremarkable clinical swallow assessment. No signs of aspiration, laryngeal penetration or pharyngeal stasis, does not have a history with GERD. He can continue with his regular low sodium diet, but as with any patient, should be seated in full Blas's position if eating or drinking in bed, and must be fully alert. Dawes is assay negative, influenza A and B negative, group A strep rapid screen negative. Blood cultures negative at 24 hours. Culture of strep for throat in progress. Day #2 Levaguin and flagyl to continue (3) E coli UTI. urine culture has now grown out E. coli. Could this have contributed to some of his sepsis? In any case, he is on appropriate antibiotic therapy. Blood pressure is stabilized. Day #2 Levaquin (4) VANESSA (acute kidney injury) Conclusion/Plan: Improving. Patient has existing chronic kidney disease stage II that may be related to hypertensive nephropathy versus lupus nephritis. Currently on maintenance steroids. We will continue to monitor and avoid nephrotoxic agents along with IV fluids. Seems like he is a bit dehydrated with some prerenal azotemia hyponatremia noted. (5) CKD (chronic kidney disease) stage 2, GFR 60-89 ml/min Conclusion/Plan: We will continue to monitor renal function. Patient's baseline creatinine was between 0.9-1.0 on review of past labs. Patient's most recent renal panel comparison in June 04 showed a creatinine of 1.2 may have a underlying component of hypertension with prior history of lupus. (6) Acute dehydration Conclusion/Plan: Continue with IV fluids and correction of underlying electrolyte disturbances. Hypotension seen with underlying sepsis, increase IVF's to 175 ml/hr. (7) Decubitus ulcer Conclusion/Plan: Present on admission. Patient has a pressure ulcer stage II to the sacrum which has been managed at [facility] however referral was placed to wound care here at would be with [facility] service. I explained to him that this did not florencia well in that he is endurance must have been sharply curtailed for him to sit so long to then develop decubitus ulcer. His remarks that this is been the "freestyle age". I believe she is referring to a computer game that he likes to play. Wound RN did see him today. CT pelvis was performed which showed no evidence of perirectal fistulas or abscesses. There was incidental findings of right femoral avascular necrosis of the head along with splenomegaly and lymphadenopathy, and a large right hydrocele. Lidocaine jelly prescribed per his request. Qualifiers: Pressure injury location: sacral region Pressure injury stage: stage 2 Qualified Code(s): L89.152 - Pressure ulcer of sacral region, stage 2 (8) Hyponatremia Conclusion/Plan: Initiate normal saline at 175 mL/HR. Sodium has gone from 129-133. Magnesium normal at 1.7. Serum osmolality and urine osmolality to follow. (9) Splenomegaly Conclusion/Plan: Currently unclear of etiology however suspected infection versus autoimmune process such as systemic lupus for which patient does have a history of. Monospot was negative. The patient does give a history of having a large spleen and severe anemia requiring steroids 30 years ago. Could he have ITP. Versus autoimmune thrombocytopenia. He is on steroids. 1.4 cm left para-Aortic lymph node which on a differential would be lymphoma. 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 Will need orthopedic follow-up either inpatient or outpatient. (11) Right hydrocele Conclusion/Plan: Asymptomatic incidental finding and would need follow-up as an outpatient. (12) Lymphadenopathy, abdominal Conclusion/Plan: 1.4 cm left para-aortic lymph node to be followed up as an outpatient. May be related to patient's systemic lupus versus differential of lymphoma. Alternatively, may require interventional radiology biopsy of node. However it would treat infection first before proceeding with this . (13) Hx of systemic lupus erythematosus (SLE) Conclusion/Plan: Patient states that he had pulse steroids with IV given to him in [place] for severe anemia and thrombocytopenia. In review of his June 04 labs his platelets were actually lower than then they are today currently at 54K. Patient denies maculopapular rash, chest pain, bleeding events, or any other symptoms other than his fatigue, cough and weakness. Would continue with his current maintenance steroids along with reconciliation of all other medications. Patient had a prior echocardiogram per history that was essentially normal. His labs on June 04 showed a BNP that was above 200. I asked him to discuss this case with his [facility] and see if he should be seeing a continuous still operator at his [facility]. (14) Immunocompromised due to corticosteroids Conclusion/Plan: Patient has susceptibility opportunistic infections. Blood culture negative, urine culture with E coli, Monospot and rapid strep negative with throat culture pending. Flu a and B were negative on admission. Lactic acid was 1.3>3.9>2.8. Would continue with corticosteroids and the need for pulse steroids if anemia worsens or renal function worsens as well. Mild transaminases as well as T bilirubin 1.5 will obtain a hepatitis viral panel. (15) Advanced care planning/counseling discussion Conclusion/Plan: Patient does not have a POLST in [place] and advanced care planning and discussion about medical conditions with disease management and trajectory of illness were discussed in length to patient. Patient chooses DNR code. Today there was another advance care planning conversation. Please see separate note (16) Chronic hypoxemic respiratory failure from pulmonary hypertension. Conclusion/Plan: Despite patient's existing bronchopneumonia patient remains at 3 L nasal cannula at 97 7% O2 saturation. Patient has underlying pulmonary hypertension. Unclear if systemic lupus has involved the lungs as well. In addition would continue with duo nebs, incentive spirometry, and pulmonary toileting. (17) Aspiration pneumonitis Conclusion/Plan: CXR worsening due type aspiration event, flagyl added to regimen, decadron added x1.
[2018-06-08] MEDS: MYCOPHENOLATE MOFETIL 250 MG CAPSULE PO SCH (22:11)
[2018-06-08] MEDS: levoFLOXacin 500 MG/100 ML 500 MG/100 ML BAG IV SCH (22:13)
[2018-06-08] MEDS: CALCIUM CARBONATE CHEW 500 MG TABLET PO SCH (22:53)
[2018-06-08] MEDS: MULTIVITAMIN TABLET PO SCH (22:53)
[2018-06-08] MEDS: CHOLECALCIFEROL 1,000 UNIT TABLET PO SCH (22:54)
[2018-06-09] MEDS: SODIUM CHLORIDE FLUSH 0.9% 10 ML SYRINGE IVP SCH ×3 (00:26→16:50)
[2018-06-09] MEDS: metroNIDAZOLE 500 MG/100 ML 500 MG/100 ML BAG IV SCH ×3 (00:26→16:50)
[2018-06-09] MEDS: SODIUM CHLORIDE 0.9% 1,000 ML IV SCH (06:48)
[2018-06-09] MEDS: MYCOPHENOLATE MOFETIL 250 MG CAPSULE PO SCH ×2 (06:50→20:35)
[2018-06-09 07:01] LABS: BASOPHILS % (AUTO) 0.1 %; EOSINOPHILS % (AUTO) 0.3 %; HGB - HEMOGLOBIN 11.6 g/dL (14.0-18.0); LYMPHOCYTES % (AUTO) 49.7 %; MEAN CORPUSCULAR VOLUME 87.9 fL (80.0-94.0); MEAN PLATELET VOLUME 10.5 fL (7.4-11.4); MONOCYTES # (AUTO) 0.5 10^3/uL (0.0-1.0); MONOCYTES % (AUTO) 12.3 %; NEUTROPHILS # (AUTO) 1.5 10^3/uL (1.5-6.6); NEUTROPHILS % (AUTO) 37.6 %; PLT - PLATELET COUNT 38 10^3/uL (130-450); RED BLOOD COUNT 3.99 10^6/uL (4.70-6.10); WHITE BLOOD COUNT 4.1 x10^3/uL (4.8-10.8)
[2018-06-09 07:09] LABS: ALBUMIN 2.8 g/dL (3.2-5.5); ALBUMIN/GLOBULIN RATIO 1.4 (1.0-2.2); BILIRUBIN,TOTAL 0.9 mg/dL (0.2-1.0); CALCIUM 8.5 mg/dL (8.5-10.3); CREATININE 1.2 mg/dL (0.6-1.2); TOTAL PROTEIN 4.8 g/dL (6.7-8.2)
--- NOTE | 2018-06-09 07:47 | PROVIDER PROGRESS NOTE ---
Subjective - Prog Note Date Prog Note Date: 06/09/18 Prog Note Time: 07:51 - Subjective Pt reports feeling: Improved Subjective: He wants to go home today. He is off oxygen and is 100% saturated which is surprising begin is usually oxygen dependent. I have noticed on his CBC that he is developed some mild pancytopenia. Platelets continue to slowly drop. Cough is now productive of thick phlegm. That seems to be getting worse. But otherwise everything else seems to be back to normal. Denies abdominal pain, chest pain, diarrhea. Current Medications - Current Medications Current Medications: Active Medications Acetaminophen (Tylenol) 650 mg PO Q4HR PRN PRN Reason: Pain 1 to 4 Hydrocodone Bitart/Acetaminophen ([place] 5/325) 1 tab PO Q4HR PRN PRN Reason: Pain 5 to 7 Albuterol/Ipratropium (Duoneb) 3 ml INH Q4HR PRN PRN Reason: Wheezing Calcium Carbonate/Glycine (Tums) 500 mg PO DAILY [facility] Last Admin: 06/08/18 22:53 Dose: Not Given Cholecalciferol (Vitamin D3) 2,000 unit PO DAILY [facility] Last Admin: 06/08/18 22:54 Dose: Not Given Famotidine (Pepcid) 20 mg PO BID [facility] Last Admin: 06/08/18 22:11 Dose: 20 mg Levofloxacin (Levaquin 500 Mg/100 Ml) 500 mg in 100 mls @ 100 mls/hr IV Q24H [facility] Last Infusion: 06/08/18 23:13 Dose: Infused Metronidazole (Flagyl 500 Mg/100 Ml) 500 mg in 100 mls @ 100 mls/hr IV Q8H [facility] Last Infusion: 06/09/18 01:26 Dose: Infused Sodium Chloride (Normal Saline 0.9%) 1,000 mls @ 75 mls/hr IV .[id number] [facility] Last Admin: 06/09/18 06:48 Dose: 75 mls/hr Lidocaine HCl (Xylocaine Jelly 2%) 1 ml TOP Q6H PRN PRN Reason: PAIN Multivitamins (Theragran) 1 tab PO DAILYWM [facility] Last Admin: 06/08/18 22:53 Dose: Not Given Mycophenolate Mofetil () 500 mg PO 0700,2100 [facility] Last Admin: 06/09/18 06:50 Dose: 500 mg Ondansetron HCl (Zofran Odt) 4 mg TL Q6HR PRN PRN Reason: Nausea / Vomiting Polyethylene Glycol (Miralax) 17 gm PO DAILY [facility] Last Admin: 06/09/18 07:49 Dose: Not Given Prednisone (Deltasone) 7.5 mg PO DAILY [facility] Last Admin: 06/08/18 08:08 Dose: 7.5 mg Sodium Chloride (Normal Saline Flush 0.9%) 10 ml IVP PRN PRN PRN Reason: NEEDED PER PROVIDER ORDERS Sodium Chloride (Normal Saline Flush 0.9%) 10 ml IVP 0100,0900,1700 [facility] Last Admin: 06/09/18 07:49 Dose: Not Given Furosemide 20 mg PO DAILY 06/07/18 Mycophenolate Mofetil 500 mg PO 0700,2100 06/07/18 Potassium Chloride 10 meq PO DAILY 06/07/18 Prednisone 7.5 mg PO DAILY 06/07/18 Objective - Vital Signs/Intake & Output Reviewed Vital Signs: Yes Vital Signs: Vital Signs x48h Temp Pulse Resp BP Pulse Ox 06/09/18 05:51 100 06/09/18 00:00 36.6 C 83 18 97/65 99 Intake & Output: Intake & Output 06/06/18 06/07/18 06/08/18 06/09/18 23:59 23:59 23:59 23:59 Intake Total 1250 5550 1300 Output Total 375 800 Balance 1250 5175 500 - Objective General Appearance: positive: No acute distress, Alert, Other (Tired, at the bedside, really wants to take a shower) Eyes Bilateral: positive: PERRL ENT: positive: No signs of dehydration Neck: positive: No JVD. negative: Stiff neck, Carotid bruit Respiratory: positive: Chest non-tender, Rhonchi, Other (Deep bronchitic cough productive of copious yellowish white phlegm) Cardiovascular: positive: Regular rate & rhythm, Systolic murmur, Other (RV lift present). negative: Gallop/S4, Friction rub Abdomen: positive: Non-tender, No organomegaly, Nml bowel sounds, No distention Skin: positive: Warm, Dry Extremities: positive: Full ROM, No pedal edema Neurologic/Psychiatric: positive: Oriented x3, CN's nml (2-12), Motor nml - Lab Results Fish Bones: 06/09/18 05:30 06/09/18 05:00 Other Labs: Lab Results x24hrs 06/09/18 06/09/18 06/08/18 Range/Units 05:30 05:00 19:17 WBC 4.1 L (4.8-10.8) x10^3/uL RBC 3.99 L (4.70-6.10) 10^6/uL Hgb 11.6 L (14.0-18.0) g/dL Hct 35.1 L (42.0-52.0) % MCV 87.9 (80.0-94.0) fL MCH 29.0 (27.0-31.0) pg MCHC 33.0 (32.0-36.0) g/dL RDW 19.0 H (12.0-15.0) % Plt Count 38 L (130-450) 10^3/uL MPV 10.5 (7.4-11.4) fL Neut # (Auto) 1.5 (1.5-6.6) 10^3/uL Lymph # (Auto) 2.0 (1.5-3.5) 10^3/uL Dubois # (Auto) 0.5 (0.0-1.0) 10^3/uL Eos # (Auto) 0.0 (0.0-0.7) 10^3/uL Baso # (Auto) 0.0 (0.0-0.1) 10^3/uL Absolute Nucleated RBC 0.00 x10^3/uL Nucleated RBC % 0.0 /100WBC Sodium 132 L (135-145) mmol/L Potassium 3.8 (3.5-5.0) mmol/L Chloride 98 L (101-111) mmol/L Carbon Dioxide 25 (21-32) mmol/L Anion Gap 9.0 (6-13) BUN 33 H (6-20) mg/dL Creatinine 1.2 (0.6-1.2) mg/dL Estimated GFR (MDRD) 58 L (>89) Glucose 124 H (70-100) mg/dL Lactic Acid 2.2 (0.5-2.2) mmol/L Calcium 8.5 (8.5-10.3) mg/dL Total Bilirubin 0.9 (0.2-1.0) mg/dL AST 33 (10-42) IU/L ALT 19 (10-60) IU/L Alkaline Phosphatase 100 (42-121) IU/L Total Protein 4.8 L (6.7-8.2) g/dL Albumin 2.8 L (3.2-5.5) g/dL Globulin 2.0 L (2.1-4.2) g/dL Albumin/Globulin Ratio 1.4 (1.0-2.2) 06/08/18 06/08/18 Range/Units 14:25 14:25 WBC (4.8-10.8) x10^3/uL RBC (4.70-6.10) 10^6/uL Hgb (14.0-18.0) g/dL Hct (42.0-52.0) % MCV (80.0-94.0) fL MCH (27.0-31.0) pg MCHC (32.0-36.0) g/dL RDW (12.0-15.0) % Plt Count (130-450) 10^3/uL MPV (7.4-11.4) fL Neut # (Auto) (1.5-6.6) 10^3/uL Lymph # (Auto) (1.5-3.5) 10^3/uL Dubois # (Auto) (0.0-1.0) 10^3/uL Eos # (Auto) (0.0-0.7) 10^3/uL Baso # (Auto) (0.0-0.1) 10^3/uL Absolute Nucleated RBC x10^3/uL Nucleated RBC % /100WBC Sodium 133 L (135-145) mmol/L Potassium 4.3 (3.5-5.0) mmol/L Chloride 95 L (101-111) mmol/L Carbon Dioxide 27 (21-32) mmol/L Anion Gap 11.0 (6-13) BUN 34 H (6-20) mg/dL Creatinine 1.5 H (0.6-1.2) mg/dL Estimated GFR (MDRD) 45 L (>89) Glucose 186 H (70-100) mg/dL Lactic Acid 2.8 H (0.5-2.2) mmol/L Calcium 9.0 (8.5-10.3) mg/dL Total Bilirubin (0.2-1.0) mg/dL AST (10-42) IU/L ALT (10-60) IU/L Alkaline Phosphatase (42-121) IU/L Total Protein (6.7-8.2) g/dL Albumin (3.2-5.5) g/dL Globulin (2.1-4.2) g/dL Albumin/Globulin Ratio (1.0-2.2) ABX Reporting Has patient been on IV antibiotics over the past 48 hours?: Yes Sepsis Event Note (H) - Evaluation Current Stage of Sepsis: Resolved Possible source of Sepsis: positive: Pulmonary - Sepsis Criteria Sepsis Criteria: Recorded Heart Rate greater than 90 bpm, Respiratory: Increasing oxygen requirements, SBP less than 90 mmHg, Hematologic: platelets < 100,000; INR > 1.5, or a PTT>60 seconds Assessment/Plan - Problem List (1) Sepsis Impression: Resolved. Patient presented with hypotension to a blood pressure of 98/58 along with source of infection at the level of the lung with bronchopneumonia to mid lungs. Lactic acid was only 1.3. Repeat after 6hrs and it went up to 3.9. Patient had blood cultures and urine cultures drawn although a mild cystitis was seen on UA and thought to be asymptomatic and option not aggressively treat although patient is already on IV Levaquin to treat atypical/typical pneumonia. Stay on therapy for pneumonia and UTI with levaquin. Lactic acid was still 2.8 06/08 afternoon and 2.2 by the evening. Stay on IV fluids to sustain adequate pressures and a map above 60. Qualifiers: Sepsis type: sepsis due to unspecified organism Qualified Code(s): A41.9 - Sepsis, unspecified organism (2) Acute bronchopneumonia on admission with superimposed acute respiratory failure with hypoxia after admit due to aspiration Conclusion/Plan: Patient with several day history of worsening fatigue cough and weakness was found to have mid lung zones affected, Will initiate coverage with IV Levaquin for typical and atypical organisms. Obtain strep rapid and throat cultures as well as mycoplasma IgM/IgG serology as patient in the context of history of lupus and immunocompromised with chronic steroids. Placed on existing oxygen supplementation currently on 3 L nasal cannula, patient was hypotensive with renal manifestation unclear if dehydration versus lupus nephritis. Patient does have thrombocytopenia and may be related to lupus versus acute infection. We will continue to monitor. Duo nebs along with pulmonary toileting and incentive spirometry to be initiated. His episode of aspiration resolved. A CODE BLUE was called but he did not need to be intubated. Overnight he was stable and this morning he is stable with oxygen requirement. Seen by Speech therapy: Patient has an entirely unremarkable clinical swallow assessment. No signs of aspiration, laryngeal penetration or pharyngeal stasis, does not have a history with GERD. He can continue with his regular low sodium diet, but as with any patient, should be seated in full Blas's position if eating or drinking in bed, and must be fully alert. Dubois is assay negative, influenza A and B negative, group A strep rapid screen negative. Blood cultures negative at 24 hours. Culture of strep for throat in progress. Day #3 Levaguin and flagyl to continue . Since he is producing more phlegm, will get a culture. (3) E coli UTI. urine culture has now grown out E. coli. Could this have contributed to some of his sepsis? In any case, he is on appropriate antibiotic therapy. Blood pressu re is stabilized. lactic acid now normal. Day #3 Levaquin (4) VANESSA (acute kidney injury) Conclusion/Plan: Resolved. Creatinine on admit 1.7>1.5>1.2 today Patient has existing chronic kidney disease stage II that may be related to hypertensive nephropathy versus lupus nephritis. Currently on maintenance steroids. We will continue to monitor and avoid nephrotoxic agents along with IV fluids. Seems like he is a bit dehydrated with some prerenal azotemia h yponatremia noted. (5) CKD (chronic kidney disease) stage 2, GFR 60-89 ml/min Conclusion/Plan: We will continue to monitor renal function. Patient's baseline creatinine was between 0.9-1.0 on review of past labs. Patient's most recent renal panel comparison in June 04 showed a creatinine of 1.2 may have a underlying component of hypertension with prior history of lupus. Today back to 1.2. (6) Acute dehydration Conclusion/Plan: Resolved. Continue with IV fluids and correction of underlying electrolyte disturbances. Hypotension was seen with underlying sepsis, increased IVF's to 175 ml/hr. Now at 75 cc/hr. Will stop IVF today. (7) Decubitus ulcer Conclusion/Plan: Present on admission. Patient has a pressure ulcer stage II to the sacrum which [facility] referral was placed to wound care here at would be with [facility] service. I explained to him that this did not florencia well in that his endurance must have been sharply curtailed for him to sit so long to then develop decubitus ulcer. His remarks that this is been the "freestyle" phase of his long term. I believe she is referring to a computer game that he likes to play. Wound RN did see him today. CT pelvis was performed which showed no evidence of perirectal fistulas or abscesses. There was incidental findings of right femoral avascular necrosis of the head along with splenomegaly and lymphadenopathy, and a large right hydrocele. Lidocaine jelly prescribed per his request. Qualifiers: Pressure injury location: sacral region Pressure injury stage: stage 2 Qualified Code(s): L89.152 - Pressure ulcer of sacral region, stage 2 (8) Hyponatremia Conclusion/Plan: Initiated normal saline at 175 mL/HR. Sodium has gone from 129-133. Magnesium normal at 1.7. Serum osmolality and urine osmolality to follow. Decrease IVF to 75 cc/hr (9) Splenomegaly Conclusion/Plan: Currently unclear of etiology however suspected infection versus autoimmune process such as systemic lupus for which patient does have a history of. Monospot was negative. The patient does give a history of having a large spleen and severe anemia requiring steroids 30 years ago. Could he have ITP Versus autoimmune thrombocytopenia? He is on steroids and not responding if this was ITP. 1.4 cm left para-Aortic lymph node which on a differential would be lymphoma. Today his WBC as well as platelets are further decreased. 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 Will need orthopedic follow-up either inpatient or outpatient. (11) Right hydrocele Conclusion/Plan: Asymptomatic incidental finding and would need follow-up as an outpatient. (12) Lymphadenopathy, abdominal Conclusion/Plan: 1.4 cm left para-aortic lymph node to be followed up as an outpatient. May be related to patient's systemic lupus versus differential of lymphoma. Alternatively, may require interventional radiology biopsy of node. However it would treat infection first before proceeding with this . (13) Hx of systemic lupus erythematosus (SLE) Conclusion/Plan: Patient states that he had pulse steroids with IV given to him in [place] for severe anemia and thrombocytopenia. In review of his June 04 labs his platelets were actually lower than then they are today currently at 54K. Patient denies maculopapular rash, chest pain, bleeding events, or any other symptoms other than his fatigue, cough and weakness. Would continue with his current maintenance steroids along with reconciliation of all other medications. Patient had a prior echocardiogram per history that was essentially normal. His labs on June 04 showed a BNP that was above 200. 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 Today, I will get name of [facility] and get records. (14) Immunocompromised due to corticosteroids Conclusion/Plan: Patient has susceptibility opportunistic infections. Blood culture negative, urine culture with E coli, Monospot and rapid strep negative with throat culture pending. Flu a and B were negative on admission. Lactic acid was 1.3>3.9>2.8>2.2. Would continue with corticosteroids and the need for pulse steroids if anemia worsens or renal function worsens as well. Mild transaminases as well as T bilirubin 1.5. will obtain a hepatitis viral panel. (15) Advanced care planning/counseling discussion Conclusion/Plan: Patient does not have a POLST in [facility] and advanced care planning and discussion about medical conditions with disease management and trajectory of illness were discussed in length to patient. Patient chooses DNR code. Today there was another advance care planning conversation. Please see separate note (16) Chronic hypoxemic respiratory failure from pulmonary hypertension. Conclusion/Plan: Despite patient's existing bronchopneumonia which we would increase his O2 need, patient remained at his baseline of 3 L nasal cannula at 97% O2 saturation. Patient has underlying pulmonary hypertension. Unclear if systemic lupus has involved the lungs as well. In addition would continue with duo nebs, incentive spirometry, and pulmonary toileting. Today he is 100% on ROOM AIR. (17) Aspiration pneumonitis Conclusion/Plan: CXR worsening due type aspiration event, flagyl added to regimen, decadron added x1.
[2018-06-09 07:48] LABS: PLATELET MORPHOLOGY RARE GIANT PLATELETS (NORMAL)
[2018-06-09] MEDS: POLYETHYLENE GLYCOL 3350 17 GM PACKET PO SCH (07:49)
[2018-06-09] MEDS: FAMOTIDINE 20 MG TABLET PO SCH ×2 (09:14→20:35)
[2018-06-09] MEDS: CHOLECALCIFEROL 1,000 UNIT TABLET PO SCH (09:14)
[2018-06-09] MEDS: CALCIUM CARBONATE CHEW 500 MG TABLET PO SCH (09:14)
[2018-06-09] MEDS: MULTIVITAMIN TABLET PO SCH (09:14)
[2018-06-09] MEDS: predniSONE 5 MG TABLET PO SCH (09:14)
[2018-06-09 11:16] LABS: HEPATITIS A IGM NON-REACTIVE (NON-REACTIVE); HEPATITIS B CORE ANTIBODY IGM NON-REACTIVE (NON-REACTIVE); HEPATITIS B SURFACE ANTIGEN NON-REACTIVE (NON-REACTIVE); HEPATITIS C ANTIBODY NON-REACTIVE (NON-REACTIVE)
[2018-06-09] MEDS: levoFLOXacin 500 MG/100 ML 500 MG/100 ML BAG IV SCH (22:06)
[2018-06-10] MEDS: metroNIDAZOLE 500 MG/100 ML 500 MG/100 ML BAG IV SCH ×2 (01:29→08:54)
[2018-06-10] MEDS: SODIUM CHLORIDE FLUSH 0.9% 10 ML SYRINGE IVP SCH ×2 (01:30→08:54)
[2018-06-10 05:07] LABS: BASOPHILS % (AUTO) 0.2 %; EOSINOPHILS % (AUTO) 1.2 %; HGB - HEMOGLOBIN 11.6 g/dL (14.0-18.0); LYMPHOCYTES # (AUTO) 1.5 10^3/uL (1.5-3.5); LYMPHOCYTES % (AUTO) 42.8 %; MEAN CORPUSCULAR HEMOGLOBIN 29.1 pg (27.0-31.0); MEAN CORPUSCULAR HGB CONC 32.8 g/dL (32.0-36.0); MEAN CORPUSCULAR VOLUME 88.8 fL (80.0-94.0); MONOCYTES # (AUTO) 0.5 10^3/uL (0.0-1.0); MONOCYTES % (AUTO) 13.4 %; NEUTROPHILS # (AUTO) 1.5 10^3/uL (1.5-6.6); NEUTROPHILS % (AUTO) 42.4 %; PLT - PLATELET COUNT 50 10^3/uL (130-450); RED BLOOD COUNT 3.99 10^6/uL (4.70-6.10); RED CELL DISTRIBUTION WIDTH 19.1 % (12.0-15.0); WHITE BLOOD COUNT 3.6 x10^3/uL (4.8-10.8)
[2018-06-10 05:22] LABS: ALBUMIN 2.8 g/dL (3.2-5.5); ALBUMIN/GLOBULIN RATIO 1.5 (1.0-2.2); BILIRUBIN,TOTAL 1.1 mg/dL (0.2-1.0); CALCIUM 8.6 mg/dL (8.5-10.3); CREATININE 1.1 mg/dL (0.6-1.2); TOTAL PROTEIN 4.7 g/dL (6.7-8.2)
--- NOTE | 2018-06-10 07:16 | Discharge Plan ---
Discharge Plan Disposition: 01 Home, Self Care Condition: Fair Prescriptions: Levofloxacin [Levaquin] 500 mg PO DAILY #17 tablet Diet: Regular Activity Restrictions: Activity as Tolerated Shower Restrictions: No Driving Restrictions: No Additional Instructions or Follow Up instructions: You were admitted to the hospital because of severe fatigue, increasingly productive cough and weakness. We found you to have several ongoing issues. 1. Pneumonia, both sides, patchy. Blood cultures were negative and this indicates that the infection had not gone into your bloodstream. And your sputum culture grew out the regular bacteria seeing her mouth so it was not helpful. For pneumonia that you needed to take a total of 7 days of antibiotics. We are discharging you on a prolonged course of antibiotics not for the pneumonia but for problem #2. 2. Urinary tract infection growing out E. coli. Because prostate is sometimes involved in a male urinary tract infection I am asking you to take a longer than usual course of antibiotics. 3. You have a history of lupus with a big spleen, low platelets, and anemia with low white cells. It is not clear to ask what this diagnosis is. Please asked Dr. Arellano to refer you to hematology. The [facility] oncology department sends a specialist to the medical ambulatory clinic at [facility] every week. We strongly encourage you to get an appointment with them to at least clarify the diagnosis and plan and clarify possible future treatment 4. You have pulmonary hypertension. You were usually on oxygen at home at night. Sometimes up to 3 L. During your stay here, you needed less and less oxygen as your treatment went on, and you are now 99% oxygen saturation on room air. This is wonderful and this is a normal value. However, please make sure that your inspector filters, Dr. Parham, provides you with documentation and certification to allow you to fly on a plane to [place], [place] in December, 5. You were describing an almost daily occurrence of severe sweats, and it is accompanied by a 40 pound weight loss since August 2017. CT of the pelvis done to look for infection in the tissues around your buttocks because of pressure ulcers show you to have a large para-aortic lymph node. Again, make sure Dr. Arellano sends you to either oncology or rheumatology to make sure this is not a sign of such diseases such as lymphoma, chronic myelogenous leukemia, or autoimmune disease. 6. While doing a CAT scan of your pelvis to make sure your pressure ulcers were not involved in causing you to have soft tissue pelvic infection as the source of your illness, we found an incidental avascular necrosis of the right hip. This means that the femur bone has deteriorated and no longer has good blood supply. This is most likely from your steroid use for your other diseases. Please have Dr. Arellano refer you to Dr. Savage for evaluation and opinion. 7. You continue to have issues with the pressure ulcers of the buttocks. Those were present on admission. You have a referral to the [facility] ambulatory clinic wound center. Please call and make an appointment to see them as soon as possible. Follow-Up Care: [facility] - Wound/Ostomy No Smoking: If you smoke, Please STOP! Call for help. Follow-up with: Fausto Arellano MD [Primary Care Provider] -
[2018-06-10 07:34] VITALS: BP 123/80
[2018-06-10] MEDS: MYCOPHENOLATE MOFETIL 250 MG CAPSULE PO SCH (07:36)
[2018-06-10] MEDS: MULTIVITAMIN TABLET PO SCH (11:06)
[2018-06-10] MEDS: CALCIUM CARBONATE CHEW 500 MG TABLET PO SCH (11:06)
[2018-06-10] MEDS: FAMOTIDINE 20 MG TABLET PO SCH (11:06)
[2018-06-10] MEDS: CHOLECALCIFEROL 1,000 UNIT TABLET PO SCH (11:06)
[2018-06-10] MEDS: POLYETHYLENE GLYCOL 3350 17 GM PACKET PO SCH (11:07)
[2018-06-10] MEDS: predniSONE 5 MG TABLET PO SCH (11:07)
--- NOTE | 2018-06-10 12:30 | DISCHARGE SUMMARY ---
Physician: Georgie Mora MD DATE OF ADMISSION: 06/07/2018 DATE OF DISCHARGE: 06/10/2018 PRIMARY CARE PROVIDER: Fausto Arellano MD DISCHARGE DIAGNOSES 1. Sepsis. 2. [id number]-hb-[id number] respiratory failure with hypoxemia. 3. Aspiration pneumonitis. 4. Bronchopneumonia. 5. Escherichia coli urinary tract infection. 6. Pressure ulcer, right and left buttocks, stage 2. 7. Ctsqu-tw-vorhdiu kidney disease, stage 2. 8. Acute dehydration. 9. Hyponatremia. 10. Night sweats. 11. Splenomegaly. 12. Thrombocytopenia. 13. Adenopathy. 14. Weight loss. 15. History of lupus. 16. Avascular necrosis of the femoral head, right. 17. Asymptomatic right hydrocele. 18. Pulmonary hypertension. MEDICATIONS 1. Lasix 20 mg daily. 2. Mofetil 500 mg daily. 3. Potassium chloride 10 mEq daily. 4. Prednisone 7.5 mg daily. 5. Levaquin 500 mg daily. 6. Multivitamin 1 tablet daily. PRINCIPAL PROCEDURES 1. Chest x-ray 06/07/2018 and 06/08/2018 consistent with bronchopneumonia. No segmental consolidati on. 2. Pelvis CT done for worsening rectal ulcers and pain, incompletely visualized markedly enlarged sp jaspal, enlarged left periaortic node 1.4 cm, enlarged heterogeneous prostate, and no perirectal or per ianal abscess seen. With the enlarged spleen and 1 single large node, there was also diffuse retrope ritoneal lymphadenopathy. 3. Blood cultures negative after 2 days. 4. Urine culture positive for E. coli. 5. Throat culture with mixed oropharyngeal tristen. HOSPITAL COURSE: The patient is an 83-year-old man who has a very complicated past medical history. He has chronic respiratory failure with hypoxemia from pulmonary hypertension, on 3 L nasal cannula at home, mainly at night. He has had a sharp reduction in his physical status since August 2017 and hauser s had probably a 40-pound weight loss, and is accompanied by severe sweats. Because of the hypoxemia and shortness of breath with exertion (that started 4 years ago and 2 years ago is when it got bad), he has been spending more and more time sitting. His sarcastically says that he plays a lot of freestyle. She calls it his "freestyle years." He has developed decubitus buttock ulcers. He was referred to [facility] for care of the buttocks ulcers, but the is finding it increasingly o mary annming to drive to [place] and has a referral [facility]. I n addition to the pulmonary hypertension, needing oxygen, the decubitus ulcers, the sweats and the we ight loss, he carries a history of being emergently hospitalized with a lupus flare associated with t hrombocytopenia or pancytopenia and enlarged spleen. He was given high-dose steroids then. Although he says he has lupus and it had the flare of 30 years ago, and 30 years before that he had joint man ifestations, he is not on necessarily any medications for lupus as far as he knows. He does not unde rstand the mofetil use for him. In any case, he is followed by Dr. Parham at [facility] for [facility]mon[facility]. He is followed by Dr. Fausto Arellano for PCP. He now presents with increasing fatigue, productive cough, weakness and subject meredith fevers. In the emergency room, he was seen as having bronchopneumonia with mid lung zone involve ment. A CT of the pelvis was done because of his history of fistula and worsening rectal pain and CT did not show any necrotizing fasciitis, soft tissue edema, or anything indicating he had a pelvic ab scess. However, the CT of the pelvis did show him to have adenopathy, splenomegaly. His blood work showed him to have a white cell count that was 7.1 and with treatment of his infection went down to 3 .6. Hemoglobin started at 13.3 and was 11.6. Platelets started at 54,000, came down to 38,000 and b umped back up to 50,000 on the day of discharge. Also noted on admission was mild dehydration with a cute kidney insufficiency. He has chronic kidney disease, stage 2, with a GFR in the 50s to 60s. Wi th his dehydration, his GFR dropped to 39 with a creatinine of 1.7. By the day of discharge, his GFR was 64 with a creatinine of 1.1. Pressure ulcers were treated by nursing during his stay, but he st ill needs a formal wound consult through the [facility] to establish care there. After he came to the floor from the emergency room and was treated for the bronchopneumonia with anti biotics, he had an acute episode of swallowing water the wrong way and a code blue was called. He qu ickly recovered, but he was quite hypoxic and cyanotic with this episode. He was felt to have sepsis from the pneumonia, and that gradually resolved with normalization of vital signs, and his lactic ac id. Also identified on the CT of the pelvis was avascular necrosis of the femoral head and an asymptomati c right hydrocele. During his stay, the patient was initially very fatigued, coughing, congested, and very weak. By , he was actually asking to go home. I explained to him that it had just been a relatively re cent resolution of his sepsis and his labs and I would like to keep him an extra day. I am glad I di d because on 06/10/2018, all of his labs were much improved from electrolytes, anion gap, chloride. He continues to have a low protein status of 4.7 with an albumin of 2.8. Again noted was rare giant platelets with white cell count down to 3.6, hemoglobin 11.6. What was also gratifying to see was a complete resolution of hypoxemia. He was 98% on room air at [facility], and 94% with walking in the room. As such, he will go back to using his oxygen at home, but only at night per the instruction of his granulating blender, Dr. Parham. I have asked the patient to please present to Dr. Parham and Dr. Arellano. It is not quite clear what this patient has in his past medical history, and I would like him to at least have a list of his di agnoses. I explained that we have treated him for patchy pneumonia, both sides. He is already going to complete antibiotics within the next 3 days for that, but he needs to complete a 21-day course of his Levaquin for the UTI/E. coli and the large prostate seen on CT. I have asked him to please be referred to Rheumatology because of his history of lupus with his splen omegaly, thrombocytopenia, and pancytopenia. If at all helpful, it would also be nice if he could be seen by Oncology as well. The patient does not recall having a diagnosis of ITP. I explained to e family that there is Oncology here on the [facility] that could see him through the [facility]. I asked him to please follow with Dr. Parham for his pulmonary hypertension, continue his home oxyge n at night. He would like to travel to [place], [place] in December 2018, and to get certification th at he can take his oxygen with him on that trip. He is flying. I am also concerned about his nightly episodes and daily episodes of severe sweats with a 40-pound we ight loss and the adenopathy seen on CT. Again, a referral to Oncology would be helpful. He is to follow up for his pressure ulcers at the [facility]. He already has a referr al to go see them. For his avascular necrosis of the right hip, I would ask for a referral to Dr. Sangeeta santiago for evaluation and opinion. The patient is discharged in stable condition. He is much improved from his status when he was initi ally admitted. He is alert, oriented, eating his breakfast. PHYSICAL EXAMINATION VITAL SIGNS: Temperature is 36.6, pulse is 79, blood pressure 123/80, respirations 18, 98% on room a ir. GENERAL: The severe cough producing copious thick phlegm is completely resolved. LYMPHATICS: Anterior cervical adenopathy, which is shotty and small is present. Nothing in the post erior chain. LUNGS: Coarse tubular breath sounds with no crackles, rhonchi or wheezing and no use of accessory mu scles. CARDIOVASCULAR: PMI is normally placed with a regular rate and rhythm. ABDOMEN: Soft and nontender. He definitely has splenomegaly palpable. SKIN: The only petechiae I see is where we put in IVs, but he does not have spontaneous petechiae an ywhere else. He has mild edema around his malleoli. His pressure ulcers are more towards stage 1 an d healing on his buttocks. Perianally, he does have tenderness, but nothing fluctuant. Greater than 30 minutes was spent coordinating discharge. TD: 06/10/2018 11:03
[2018-06-11 14:27] LABS: MYCOPLASMA PNEUMONIAE IGG 1.43
== END 2018-06-10 10:45 | disposition home or self-care (01) | DRG 871 ==
LOC: ED 17:11 → MS2 20:54
PROVIDERS: ADMIT Family Medicine; ATTEND Specialist
DX: J18.9 Pneumonia, unspecified organism (principal); A41.9 Sepsis, unspecified organism; K62.6 Ulcer of anus and rectum; I10 Essential (primary) hypertension; Z87.891 Personal history of nicotine dependence; J69.0 Pneumonitis due to inhalation of food and vomit; J96.21 Acute and chronic respiratory failure with hypoxia; D61.818 Other pancytopenia; N39.0 Urinary tract infection, site not specified; N17.9 Acute kidney failure, unspecified; E87.1 Hypo-osmolality and hyponatremia; M87.9 Osteonecrosis, unspecified; L89.152 Pressure ulcer of sacral region, stage 2; B96.20 Unspecified Escherichia coli [E. coli] as the cause of diseases classified elsewhere; N18.2 Chronic kidney disease, stage 2 (mild); E86.0 Dehydration; R61 Generalized hyperhidrosis; R16.1 Splenomegaly, not elsewhere classified; R63.4 Abnormal weight loss; M32.9 Systemic lupus erythematosus, unspecified; N43.3 Hydrocele, unspecified; I27.20 Pulmonary hypertension, unspecified; R59.1 Generalized enlarged lymph nodes; Z68.25 Body mass index [BMI] 25.0-25.9, adult
CPT/HCPCS: 36415; 71045; 72193; 80048; 80053; 80074; 81001; 83605; 83690; 83735; 83930; 83935; 85025; 85610; 85730; 86308; 86738; 87040; 87070; 87086; 87181; 87275; 87276; 87430; 92610; 96361; 96374; 96375; 97161; 99284; A9270; J2270; J2765; J3490; J7512; Q9967; 81003

== ENCOUNTER 2018-06-24 11:28 | Outpatient (CLI) | payer MEDICARE, OTHER | END 2018-06-24 11:29 | disposition critical access hospital (66) | LOC: EMS 11:28 | PROVIDERS: ATTEND Surgery | DX: R47.81 Slurred speech (principal); R29.810 Facial weakness; R42 Dizziness and giddiness; R51 Headache | CPT/HCPCS: A0425; A0429 ==

== ENCOUNTER 2018-06-24 12:02 | Emergency (ER) | payer MEDICARE, OTHER ==
--- NOTE | 2018-06-24 12:52 | CT Report ---
Reason: slurred speech earlier today Procedure Date: 06/24/2018 Accession Number: [id number] / [id number] Procedure: CT - Head W/O Stroke Protocol CPT Code: FULL RESULT: EXAM: CT HEAD EXAM DATE: 06/24/2018 12:42 PM. CLINICAL HISTORY: Slurred speech earlier today. COMPARISON: None. TECHNIQUE: Multiaxial CT images were obtained from the foramen magnum to the vertex. Reformats: Sagittal and coronal. IV contrast: None. In accordance with CT protocol optimization, one or more of the following dose reduction techniques were utilized for this exam: automated exposure control, adjustment of mA and/or KV based on patient size, or use of iterative reconstructive technique. FINDINGS: Parenchyma: There is mild hypoattenuation in the periventricular white matter of bilateral cerebral hemispheres, compatible with sequela of mild chronic microvascular disease. The overall fernandez-white matter differentiation is preserved. No intracranial hemorrhage demonstrated. No evidence of mass or mass-effect. Extraaxial Spaces: Mild diffuse prominence, compatible with mild cerebral volume loss. No subdural or epidural collections identified. Ventricles: Normal in size and position. Basal cisterns are patent. Sinuses and Orbits: Imaged paranasal sinuses, orbits, and mastoids show no significant abnormality. Bones: No evidence of fracture or calvarial defect. Other: There appears to be a subcutaneous lipoma over the right occipital region (series 3, image 16). IMPRESSION: 1. No acute intracranial abnormality. 2. Sequela of mild chronic microvascular disease and cerebral volume loss. RADIA The critical test notification system was initiated by Dr. John Chanel at 12:48 PM on 06/24/2018. The above critical test findings were discussed with Dr. Camilo Acevedo by Dr. Jhon Chanel at 12:50 PM on 06/24/2018.
[2018-06-24 13:08] LABS: BASOPHILS # (AUTO) 0.1 10^3/uL (0.0-0.1); BASOPHILS % (AUTO) 1.1 %; EOSINOPHILS # (AUTO) 0.1 10^3/uL (0.0-0.7); HGB - HEMOGLOBIN 14.3 g/dL (14.0-18.0); LYMPHOCYTES # (AUTO) 2.2 10^3/uL (1.5-3.5); LYMPHOCYTES % (AUTO) 32.3 %; MEAN CORPUSCULAR HGB CONC 32.7 g/dL (32.0-36.0); MEAN CORPUSCULAR VOLUME 88.7 fL (80.0-94.0); MEAN PLATELET VOLUME 8.5 fL (7.4-11.4); MONOCYTES # (AUTO) 0.5 10^3/uL (0.0-1.0); MONOCYTES % (AUTO) 7.8 %; NEUTROPHILS # (AUTO) 3.8 10^3/uL (1.5-6.6); NEUTROPHILS % (AUTO) 56.8 %; PLT - PLATELET COUNT 117 10^3/uL (130-450); RED BLOOD COUNT 4.94 10^6/uL (4.70-6.10); RED CELL DISTRIBUTION WIDTH 18.7 % (12.0-15.0); WHITE BLOOD COUNT 6.7 x10^3/uL (4.8-10.8)
[2018-06-24] MEDS ORDERED: ASPIRIN CHEW 81 MG TABLET PO STA (13:09)
[2018-06-24 13:11] VITALS: BP 122/87
--- NOTE | 2018-06-24 13:13 | ED Physician Documentation ---
PD HPI FOCAL NEURO - Stated complaint Stated Complaint: TIA - Chief complaint Chief Complaint: Neuro - History obtained from History obtained from: Patient, Family - History of Present Illness Timing - onset: Today Timing - duration: Minutes (10) Timing - details: Abrupt onset, Now resolved Severity of deficit: Moderate Weakness: Face, Left. No: Arm, Hand, Leg, Foot, Right Numbness: No: Face, Arm, Hand, Leg, Foot, Right, Left Associated symptoms: Headache (2/10 frontal) Contributing factors: negative: Anticoagulated, Vascular dz, Atrial fibrillation, Prosthetic heart valve Baseline status: positive: A&OX3, ambulatory, indep Similar symptoms before: Has not had sx before Recently seen: Admitted (recently discharged) - Additional information Additional information: has an appointment with palliative care next week. Patient got out of the shower today and had difficulty with speech, his speech was slurred and the left side of his face was drooping. Lasted approximately 10 minutes.Now back to normal. Review of Systems Ten Systems: 10 systems reviewed and negative Constitutional: denies: Fever, Chills Nose: denies: Rhinorrhea / runny nose, Congestion Throat: denies: Sore throat Cardiac: denies: Chest pain / pressure Respiratory: denies: Cough GI: denies: Abdominal Pain, Nausea, Vomiting, Diarrhea Skin: denies: Rash Musculoskeletal: denies: Neck pain, Back pain Neurologic: denies: Numbness, Confused, LOC PD PAST MEDICAL HISTORY - Past Medical History Past Medical History: Yes Cardiovascular: Hypertension Respiratory: Pneumonia, Shortness of breath, Other Neuro: None Endocrine/Autoimmune: Systemic lupus erythematosus GI: Hemorrhoids : Frequency Psych: None Musculoskeletal: Osteoarthritis, Gout Derm: Herpes zoster, Psoriasis - Past Surgical History Past Surgical History: Yes General: Colonoscopy, EGD HEENT: Tonsil/Adenoidectomy Derm: Skin cancer surgery - Present Medications Home Medications: Ambulatory Orders Medication Instructions Recorded Confirmed Furosemide 20 mg PO DAILY 06/07/18 06/15/18 Mycophenolate Mofetil 500 mg PO 0700,2100 06/07/18 06/15/18 Potassium Chloride 10 meq PO DAILY 06/07/18 06/15/18 Prednisone 7.5 mg PO DAILY 06/07/18 06/15/18 Levofloxacin [Levaquin] 500 mg PO DAILY #17 tablet 06/10/18 06/15/18 Multivitamin [Theragran] 1 tab PO DAILYWM #0 tablet 06/10/18 06/15/18 - Allergies Allergies/Adverse Reactions: Allergies Allergy/AdvReac Type Severity Reaction Status Date / Time Sulfa (Sulfonamide Allergy Emesis Verified 06/24/18 12:14 Antibiotics) - Social History Does the pt smoke?: Yes Smoking Status: Current every day smoker Does the pt drink ETOH?: No Does the pt have substance abuse?: No - Immunizations Immunizations are current?: Yes PD ED PE NORMAL - Vitals Vital signs reviewed: Yes - General General: Alert and oriented X 3, No acute distress, Well developed/nourished - HEENT HEENT: PERRL, Moist mucous membranes - Neck Neck: Supple, no meningeal sign - Cardiac Cardiac: RRR, Strong equal pulses - Respiratory Respiratory: No respiratory distress, Clear bilaterally - Abdomen Abdomen: Soft, Non tender, Non distended - Derm Derm: Warm and dry - Extremities Extremities: No deformity, No edema - Neuro Neuro: Alert and oriented X 3, 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, No motor deficit, No sensory deficit, Normal speech Eye Opening: Spontaneous Motor: Obeys Commands Verbal: Oriented GCS Score: 15 - Psych Psych: Normal mood, Normal affect NIHSS - Time Time: 12:14 - Level of Consciousness Level of consciousness: (0) Alert, Keenly responsive LOC Questions: (0) Answers both Q's correct LOC Commands: (0) Performs both correctly - Gaze Best Gaze: (0) Normal - Visual Visual: (0) No loss - Facial Palsy Facial Palsy: (0) Normal, symmetrical movement - Motor Arms (both separate) Motor Arm (right): (0) No drift Motor Arm (left): (0) No drift - Motor Legs (both separate) Motor Leg (right): (0) No drift Motor Leg (left): (0) No drift - Limb Ataxia Limb Ataxia: (0) Absent - Sensory Sensory: (0) Normal - Best Language Best Language: (0) No aphasia - Dysarthria Dysarthria: (0) Normal - Extinction and Inattention (formally neg Extinction and inattention: (0) No abnormality - Total Score/Results Total Score/Result: 0 Results - Vitals Vitals: Vital Signs - 24 hr 06/24/18 06/24/18 12:11 13:10 Temperature 36.6 C Heart Rate 77 80 Respiratory 14 16 Rate Blood Pressure 97/83 H 122/87 H O2 Saturation 98 100 Oxygen O2 Source Room air - EKG (time done) 1227 Rate: Rate (enter#) (77) Rhythm: NSR [place]: LAD Intervals: Normal ID QRS: Normal Ischemia: Normal ST segments - Labs Labs: Laboratory Tests 06/24/18 06/24/18 12:46 12:46 WBC 6.7 RBC 4.94 Hgb 14.3 Hct 43.9 MCV 88.7 MCH 29.0 MCHC 32.7 RDW 18.7 H Plt Count 117 L MPV 8.5 Neut # (Auto) 3.8 Lymph # (Auto) 2.2 Simpson # (Auto) 0.5 Eos # (Auto) 0.1 Baso # (Auto) 0.1 Absolute Nucleated RBC 0.00 Nucleated RBC % 0.1 Sodium 135 Potassium 4.2 Chloride 94 L Carbon Dioxide 32 Anion Gap 9.0 BUN 32 H Creatinine 0.9 Estimated GFR (MDRD) 80 L Glucose 123 H Calcium 9.4 Total Bilirubin 0.8 AST 24 ALT 17 Alkaline Phosphatase 94 Total Protein 6.0 L Albumin 3.6 Globulin 2.4 Albumin/Globulin Ratio 1.5 Lipase 26 - Rads (name of study) Head CT Radiology: Prelim report reviewed, EMP read contemporaneously, See rad report (No acute intracranial abnormality) PD MEDICAL DECISION MAKING - ED course Complexity details: reviewed results, re-evaluated patient, considered differential, d/w patient, d/w family ED course: 83-year-old male with symptoms consistent with a TIA today. Recommended observation in the hospital with MRI, carotid ultrasound and echocardiogram. Patient and state that he is they are considering palliative care, they do not wish to stay in the hospital for further workup. They do understand the risk that he could have a stroke. We will start him on a aspirin. They understand that he could lose his current lifestyle, mobility and cognitive function. He will follow-up with his doctor tomorrow. Patient and family counseled regarding signs and symptoms for which I believe and urgent re- evaluation would be necessary. Patient with good understanding of and agreement to plan and is comfortable going home at this time This document was made in part using voice recognition software. While efforts are made to proofread this document, sound alike and grammatical errors may occur. Departure - Departure Disposition: 01 Home, Self Care Clinical Impression: TIA (transient ischemic attack) Condition: Good Instructions: ED Transient Ischemic Attack Follow-Up: Fausto Arellano MD [Primary Care Provider] - Within 3 Days Comments: Start on aspirin 325mg by mouth daily. Return if you worsen. If you choose to pursue further workup, follow up with your doctor for carotid ultrasounds, MRI of your brain and an echocardiogram of your heart. Discharge Date/Time: 06/24/18 13:25
[2018-06-24 13:22] LABS: ALBUMIN 3.6 g/dL (3.2-5.5); ALBUMIN/GLOBULIN RATIO 1.5 (1.0-2.2); BILIRUBIN,TOTAL 0.8 mg/dL (0.2-1.0); CALCIUM 9.4 mg/dL (8.5-10.3); CREATININE 0.9 mg/dL (0.6-1.2)
== END 2018-06-24 13:25 | disposition home or self-care (01) ==
LOC: EDUNIT# → ED 12:02
DX: G45.9 Transient cerebral ischemic attack, unspecified (principal); I10 Essential (primary) hypertension; M32.9 Systemic lupus erythematosus, unspecified; F17.200 Nicotine dependence, unspecified, uncomplicated
CPT/HCPCS: 36415; 70450; 80053; 83690; 85025; 93005; 99283; 99285; A9270

== ENCOUNTER 2018-07-03 17:17 | Outpatient (CLI) | payer MEDICARE, OTHER ==
--- NOTE | 2018-07-03 18:29 | CONSULTATION NOTE ---
Palliative Care Consultation - Referral Referring Provider: Dr Arellano Time of Visit: Alejandra 07/03/2018. 10:40 - 12:40 Referral setting: Home Referral Reason: Pain, decline - Information Sources Records reviewed: RN notes reviewed, Previous records reviewed History/Review of Systems obtained from: Patient, Family Exam limitations: No limitations - History of Present Illness Brief History of Present Illness: Thank you, Dr. Arellano, for asking the palliative care consult service to be involved in the care of your patient. I am asked to provide support regarding failing health, complex multiple co-morbidities, and advance care planning. 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 Patient has had numerous ED visits and hospitalizations. Most recently was 06/24/18 to ED with suspected /TIA. He was hospitalized at [facility] 06/07/18 for sepsis, bronchopneumonia, and his chronic decubitus ulcers. Patient has been on a steady decline since 2016, when he really started to notice his increasing dyspnea and lethargy. weekend in 2017 he went to ED in [place] with crackles in lungs, that's when he was diagnosed with pulmonary HTN. August 2017 is when he had a herpes zoster outbreak on his R side (ribs, chest), and he is still dealing residual post-herpetic neuropathy, reporting that it hurts to one degree or another constantly. The tramadol he was recently started on has not provided much relief. He also reports pain of coccyx wound. Currently using lidocaine ointment and CBD cream for relief. Wound care has been managed by [facility], then outpatient at [facility]. Since traveling by car is taxing and considerable effort, Home Health RN has just been started, for home wound care. His spouse ordered CBD oil for oral use; it's due to arrive any time. In September 2017 he was started on mycophenolate mofetil (for SLE), an immuno- suppressant which he was on up until about 10 days ago. He has had 2 SLE flares, 30 years apart. The last one was 30 years ago, and 30 years previous to that he had a flare with severe diffuse small joint arthritis including pain, swelling, effusions and heat of joints of his hands, feet, like it was RA. Since stopping the mycophenolate mofetil, patient and spouse report a noticeable improvement in his wound and general condition. Stopping the med was with the approval of Dr Felix Parham at [facility], . Fax [phone]. They have a follow up visit with him on 07/16/18. They are hoping that now that staying off it will help heal his wound and improve his condition. They want to stop going to the [facility] for his medical appointments, it's too taxing. They want to work with [facility] as much as possible. They also see a naturopathic doctor and are using targeted light therapy for various conditions: on his head for the TIA, his chest (for his lung disease), and on the decubitus wound of coccyx/buttocks. Home Health RN has just started, for wound care. (Previously he was going to the [facility], and prior to that, to [facility]. He is also being referred to PT for strengthening and improving his mobility. He has had imaging that shows he has avascular necrosis of R femoral head and he is at increased risk of hip fracture, so he is anxious about not falling. Patient also asked about a lesion on R side of face; greyish, rough surface, oval shape about 1cm across, appearance of actinic keratosis. With his history of skin cancer (spouse reports it was melanoma) I recommend f/u with dermatology. Dr Mora, hospitalist, recommended he follow up with oncology since his weight loss and night sweats could be a sign of neoplasm. They have an oncology susie't with Dr Castro on July 26. Information obtained from patient, spouse, and EMR chart notes of Dr Mora's 06/08/18. Medical/Surgical History - Past Medical History Cardiovascular: reports: Hypertension Respiratory: reports: Pneumonia, Shortness of breath, Other (pulmonary HTN with idiopathic pulmonary fibrosis and O2 dependency) Neuro: reports: TIA (06/24/2018), Other (Post-herpetic polyneuropathy) Endocrine/Autoimmune: reports: Systemic lupus erythematosus GI: reports: Hemorrhoids : reports: Incontinence, Renal insuffiency (CKD III), Frequency Psych: reports: None Musculoskeletal: reports: Osteoarthritis, Gout Derm: reports: Herpes zoster, Psoriasis, Other (Decubitus ulcer coccyx/buttocks, stage III) MRSA Hx?: No - Past Surgical History General: reports: Colonoscopy, EGD HEENT: reports: Tonsil/Adenoidectomy Derm: reports: Skin cancer surgery - Substance History Use: Uses substance without health or social issues: Alcohol (daily cocktails with spouse) Tobacco Details: Cigarettes (former smoker, age [age]) Social History - Living Situation Living arrangement: At home Living Situation: With spouse/s.o. Support System: , has lived [address] [facility] with his second . He has 2 sons, 1 daughter. His spouse has 2 daughters. 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 He loves to garden. He and his used to travel quite a bit. Their last big trip was August when he was in [place], and had to be hospitalized; that's when he was diagnosed with pulmonary HTN. Family History - Family History Family History Comment/Other: father age 83; mother age 95. Two siblings: thyroid cancer (age 82), and breast cancer (age 76) Medications/Allergies - Medications Home Medications: Ambulatory Orders Medication Instructions Recorded Confirmed Furosemide 20 mg PO DAILY 06/07/18 07/03/18 Potassium Chloride 10 meq PO DAILY 06/07/18 07/03/18 Prednisone 7.5 mg PO DAILY 06/07/18 07/03/18 Advil Pm 2 tab PO QPM PRN 07/03/18 Lidocaine 5% Topical Ointment 1 ea TOP .UP TO QID 07/03/18 Magnesium Tablet 1 tab PO DAILY PRN 07/03/18 traMADol [Ultram] 50 mg PO Q4H PRN 07/03/18 07/03/18 - Allergies Allergies/Adverse Reactions: Allergies Allergy/AdvReac Type Severity Reaction Status Date / Time Sulfa (Sulfonamide Allergy Emesis Verified 06/24/18 12:14 Antibiotics) Review of Systems - Constitutional Constitutional: reports: Fatigue, Fever, Chills, Weakness, Poor appetite, Night sweats, Weight loss (162 lbs 06/30/18 on home scale. Weighed 198 lbs August 2017. The first 20 lbs were intentional, now he tries to eat, but keeps losing weight.) - Eyes Eyes: reports: Corrective lenses - Ears, Nose & Throat Ears, Nose & Throat: reports: Hearing loss, Tinnitus, Nosebleeds, Other (Sinus problems) - Cardiovascular Cardiovascular: reports: Exertional dyspnea, Decr. exercise tolerance - Respiratory Respiratory: reports: SOB at rest, SOB with exertion - Gastrointestinal Gastrointestinal: reports: Diarrhea, Change in bowel habits, Poor appetite - Genitourinary Genitourinary: reports: Frequency, Incontinence, Sexual dysfunction - Musculoskeletal Musculoskeletal: reports: Joint pain (bunions of bilateral great toes), A ssistive devices (walker), Other (post-herpetic polyneuropathy of R chest and ribs) - Integumentary Integumentary: reports: Rash, Pruritis, Other (Pressure ulcer coccys/gluteal cleft) - Neurological Neurological: reports: Headache, Dizziness, Numbness (and tingling), Other (tremors) - Psychiatric Psychiatric: reports: Other (sleep problems) - Hematologic/Lymphatic Hematologic/Lymphatic: reports: Anemia, Bruising (easily bruise) Physical Exam - Vital Signs Temperature: 96.8 F Pulse Rate: 90 O2 Saturation: 95 Blood Pressure: 153/86 - Physical Exam General Appearance: positive: No acute distress, Lethargic Eyes Bilateral: positive: Normal inspection ENT: positive: No signs of dehydration Neck: positive: Trachea midline Cardiovascular: positive: Regular rate & rhythm, No murmur, No gallop Respiratory: positive: Chest non-tender, No respiratory distress, Diminished throughout. negative: Rhonchi Abdomen: positive: Non-tender, Soft, Nml bowel sounds Skin: positive: Pressure wound (coccyx/gluteal cleft stage II) Extremities: positive: No pedal edema Neurologic/Psychiatric: positive: Oriented x3, Mood/affect nml Palliative Care - POLST Patient has POLST: Yes POLST Status: DNR, Selective Treatment Pain: Pain unchanged, Location (post-herpetic pain on R chest/ribs. Pain from chronic coccyx wound), Comment (3 of 10) Tiredness/Fatigue: Moderate (4-6) Drowsiness/Sedation: Mild (1-3) Nausea: None Depression: Mild (1-3) Anxiety: Mild (1-3) Dyspnea: Mild (1-3) Anorexia: Moderate (4-6) Constipation: No Feelings of wellbeing/Perceived Quality of Life: Fair Performance Status: Requires assistance with ADLs Requires assistance with clothing Shower, needs someone present Ambulation: requires presnce/asistance of someone Urinary incontinence. Palliative Performance Scale: 50% - Palliative Care Discussion: Discussed the POLST and filled it out with the spouse, DNR and selective treatment. They had been presented with the POLST during May hospitalization at , spouse says they have discussed and this matches the patient's advance directives. His most pressing concern is getting his pain from the coccyx wound under control. What would improve his life at the moment is just being able to go to the bathroom without pain. They both note that since stopping the mycophenolate mofetil that the wound is clearing up. They're relieved that HH will be taking over wound care so they won't be needing to drive into [place] several times per week. HH PT would help; he's anxious to get any help or advantage in increasing his stamina for ambulating; he wants to avoid falling/hip fracture at all costs. We spent a long time discussing pain relief. The primary concern is his coccyx wound. His post-herpetic neuralgia is a constant pain, intermittently more painful than at other times. He had a difficult time describing it; sometimes it stings, other times it's like an electric shock. They have used CBD cream and it's helped. His PCP started tramadol on 06/20, "it hardly does anything." We discussed starting gabapentin, and they are interested, but first they want to monitor how his pain reacts to mycophenolate being DC'd, plus they have just started taurin, recommended by his plywood layup line core feeder, Eula Contreras in [place]. Also they are about to receive CBD oil for oral use. We agreed to hold off on starting gabapentin, or trying a stronger opioid (eg, [place]). They want to try the taurin and/or CBD first. They also plan to continue the targeted light therapy; it's unclear how effective, if at all, it is, but the spouse is very enthusiastic about it. Their goal is that he remain at home. She absolutely does not want him in a facility or assisted living. She has already had experience caregiving, for many years, for her mother, who had mental illness. In the end her mother moved to an [facility], which worked out well for them both. Her mother was also on Hospice when she , and the patient says this was a positive experience. The spouse does admit that she never expected this (taking care of her spouse) to be her life at this age. "It's like raising a child." She is very devoted to taking care of him, and keeping him at home. When she took care of her mother the house was equipped with safety features, hand rails, etc, throughout. We did discuss about how she anticipates being able to handle it as his caregiving needs increase. So far she is handling the personal caregiving without outside help. They do have a self-contained apartment on the ground floor of their house, and last month they brought in a couple to provide help with household and gardening. The is a rug underlay machine operator, and so he is taking care of their land, which is an enormous relief. The helps around the house. The patient's spouse reports having a very strong social network of [place] friends, sometimes "too strong" so that she gets tired of fending off requests and questions from friends. Her house has always been the "green party house," for her friends and family, and so they still come over. She reports it's ok and says that so far she has been able to handle it. She is not interested in any sort of caregiver support group -- she doesn't have time for that. I provided information about Palliative Care social work and the service it provides for resource and psychosocial support. 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 History of frequent hospitalizations and ED visits. Home Health Nursing has begun managing wound care, and a referral to HH PT is in process. Palliative care to offer support with pain and symptom management and monitoring/support for transition to Hospice when appropriate. Recommendations/Counseling Done: Pulmonary HTN with idiopathic pulmonary fibrosis: Has been followed by Dr Felix Parham at [facility]. Next visit 07/16/17. Recently DC'd from mycophenolate mofitil, used to block SLE from affecting lungs. Continue oxygen 3L via [place] and prednisone 7.5mg daily. Patient also takes Advil PM (200mg ibuprofen, and 38mg diphenhydramine) 2 tablets at bedtime. Post-herpetic polyneuropathy: Currently using CBD cream, and he will soon start CBD oral oil (it's been shipped already). Tomorrow they see their plywood layup line core feeder, Eula Contreras in [place]. Patient is open to starting gabapentin, but want to speak with plywood layup line core feeder first, who recommends they start taurine. Tramadol was started 06/20/18, with little effect. They want to wait on their CBD and taurine product before trying any other opioid. Coccyx/buttocks pressure wound: Was followed by [facility], then most recently [facility] outpatient. Home Health RN was started on 06/30 for wound care management. First week will be 3 visits, then 2x/week. Also referring the patient to HH PT for strength, mobility. Continue Tramadol Weight loss, unintentional: Also night sweats. They have oncology appoitnment with Dr Castro at [facility] on July 23 for work up. Extrusion Press Supervisor is helping them with nutrition advice: having him eat meat, protein shakes, otherwise a normal diet, no restrictions. Recommended smaller, more frequent meals. He will also start some CBD oral supplement, which may increase appetite. Can also consider appetite stimulant such as mirtazapine; they are not currently interested. Advance care planning: POLST signed: DNR and selective treatment. Short term goal is pain management, of coccyx wound and post-herpetic neuralgia. Long-term goal is keeping patient at home and as functional as possible. They have two people living on their property; the takes care of their land/garden, the helps in the house. Spouse to follow up with [employer] LEADER after tomorrow's visit with plywood layup line core feeder. Next Palliative Care visit in about 3 weeks. Time Spent: 120 minutes were spent with more than 50% of the time spent on counseling, education, providing anticipatory guidance, and coordination of care.
== END 2018-07-03 17:18 | disposition home or self-care (01) ==
LOC: PC 17:17
PROVIDERS: ATTEND Nurse Practitioner
DX: Z51.5 Encounter for palliative care (principal); I27.20 Pulmonary hypertension, unspecified; I13.0 Hypertensive heart and chronic kidney disease with heart failure and stage 1 through stage 4 chronic kidney disease, or unspecified chronic kidney disease; I50.9 Heart failure, unspecified; N18.3 Chronic kidney disease, stage 3 (moderate); Z99.81 Dependence on supplemental oxygen; M32.9 Systemic lupus erythematosus, unspecified; J84.112 Idiopathic pulmonary fibrosis; B02.29 Other postherpetic nervous system involvement; Z79.899 Other long term (current) drug therapy; Z86.73 Personal history of transient ischemic attack (TIA), and cerebral infarction without residual deficits; Z85.820 Personal history of malignant melanoma of skin; L98.9 Disorder of the skin and subcutaneous tissue, unspecified; R61 Generalized hyperhidrosis; R63.4 Abnormal weight loss; Z87.891 Personal history of nicotine dependence; Z66 Do not resuscitate; L89.152 Pressure ulcer of sacral region, stage 2; I73.00 Raynaud's syndrome without gangrene; M35.00 Sjogren syndrome, unspecified; Z79.1 Long term (current) use of non-steroidal anti-inflammatories (NSAID); Z79.52 Long term (current) use of systemic steroids
CPT/HCPCS: 99345

== ENCOUNTER 2018-08-05 07:21 | Outpatient (CLI) | payer MEDICARE, OTHER | END 2018-08-05 07:22 | disposition critical access hospital (66) | LOC: EMS 07:21 | PROVIDERS: ATTEND Surgery | DX: R53.1 Weakness (principal); R53.81 Other malaise; R06.02 Shortness of breath; R52 Pain, unspecified ==

== ENCOUNTER 2018-08-05 07:59 | Emergency (ER) | payer MEDICARE, OTHER ==
--- NOTE | 2018-08-05 08:17 | ED Physician Documentation ---
History of Present Illness - Stated complaint Stated Complaint: WEAKNESS - Chief complaint Chief Complaint: General - History obtained from History obtained from: Patient, Family, EMS - History of Present Illness Timing: How many weeks ago (1) - Additonal information Additional information: 83-year-old male with a history of pulmonary fibrosis has been placed on some naltrexone for postherpetic neuralgia and he is on a dose of 5 mg a day and he has become more sedated his pain of his postherpetic neuralgia is improved and he has developed weakness. Review of Systems Constitutional: reports: Chills. denies: Fever Eyes: denies: Decreased vision Ears: denies: Ear pain Nose: denies: Rhinorrhea / runny nose, Congestion Throat: denies: Sore throat Cardiac: denies: Chest pain / pressure, Palpitations Respiratory: reports: Dyspnea. denies: Cough GI: denies: Abdominal Pain, Nausea, Vomiting : denies: Dysuria, Frequency PD PAST MEDICAL HISTORY - Past Medical History Cardiovascular: Hypertension, Other Respiratory: Pneumonia, Shortness of breath, Other Neuro: None Endocrine/Autoimmune: Systemic lupus erythematosus GI: Hemorrhoids : Incontinence, Renal insuffiency, Frequency Psych: None Musculoskeletal: Osteoarthritis, Gout Derm: Herpes zoster, Psoriasis, Other - Past Surgical History Past Surgical History: Yes General: Colonoscopy, EGD HEENT: Tonsil/Adenoidectomy Derm: Skin cancer surgery - Present Medications Home Medications: Ambulatory Orders Medication Instructions Recorded Confirmed Prednisone 5 mg PO DAILY 06/07/18 07/23/18 Advil Pm 2 tab PO QPM PRN 07/03/18 07/23/18 Lidocaine 5% Topical Ointment 1 ea TOP .UP TO QID 07/03/18 07/23/18 Magnesium Tablet 1 tab PO DAILY PRN 07/03/18 07/23/18 Aspirin [Aspirin EC] 325 mg PO DAILY 07/23/18 07/23/18 Cannabidiol (Cbd) Extract 25 mg PO DAILY 07/23/18 07/23/18 [Epidiolex] Honey [Manuka Honey] 250 mg PO DAILY 07/23/18 07/23/18 Naltrexone [Naltrexone Base 1,000 gm MC 08/05/18 Monohydrate] predniSONE [Deltasone] 10 mg PO [id number] #42 tab 08/05/18 - Allergies Allergies/Adverse Reactions: Allergies Allergy/AdvReac Type Severity Reaction Status Date / Time Sulfa (Sulfonamide Allergy Emesis Verified 08/05/18 08:08 Antibiotics) - Social History Does the pt smoke?: Yes Smoking Status: Former smoker Does the pt drink ETOH?: No Does the pt have substance abuse?: No - Immunizations Immunizations are current?: Yes - POLST Patient has POLST: Yes PD ED PE NORMAL - Vitals Vital signs reviewed: Yes (hypertensive and hypoxic ) - General General: No acute distress, Well developed/nourished, Other (pale appearing male talks quietly and has a short attention span drifts off easily ) - HEENT HEENT: Atraumatic, PERRL, EOMI, Other (dry mucous membranes ) - Neck Neck: Supple, no meningeal sign, No bony TTP - Cardiac Cardiac: RRR, Other (2/6 holosystolic murmer at LSB) - Respiratory Respiratory: No respiratory distress, Other (rales in the right base) - Abdomen Abdomen: Soft, Non tender - Back Back: No CVA TTP, No spinal TTP - Derm Derm: Normal color, Warm and dry, No rash - Extremities Extremities: No deformity, No edema - Neuro 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, No motor deficit, No sensory deficit Eye Opening: Spontaneous Motor: Obeys Commands Verbal: Oriented GCS Score: 15 - Psych Psych: Other (mood is withdrawn and the affect is flat ) Results - Vitals Vitals: Vital Signs - 24 hr 08/05/18 08/05/18 08/05/18 08:01 09:47 11:47 Temperature 36.6 C Heart Rate 87 89 86 Respiratory 23 24 16 Rate Blood Pressure 142/78 H 153/89 H 147/85 H O2 Saturation 91 L 90 L 96 08/05/18 08/05/18 08/05/18 12:00 12:30 13:00 Temperature Heart Rate 86 88 88 Respiratory 19 24 22 Rate Blood Pressure 154/94 H 136/94 H 140/80 H O2 Saturation 92 92 88 L 08/05/18 14:32 Temperature Heart Rate 86 Respiratory 16 Rate Blood Pressure 133/91 H O2 Saturation 91 L Oxygen O2 Source Nasal cannula - Labs Labs: Laboratory Tests 08/05/18 08/05/18 08/05/18 08:44 08:44 08:44 WBC 7.4 RBC 4.16 L Hgb 12.4 L Hct 36.9 L MCV 88.6 MCH 29.8 MCHC 33.6 RDW 16.6 H Plt Count 123 L MPV 8.8 Neut # (Auto) 4.0 Lymph # (Auto) 2.3 [place] # (Auto) 0.9 Eos # (Auto) 0.2 Baso # (Auto) 0.1 Absolute Nucleated RBC 0.00 Nucleated RBC % 0.1 Sodium 138 Potassium 3.8 Chloride 94 L Carbon Dioxide 35 H Anion Gap 9.0 BUN 35 H Creatinine 1.6 H Estimated GFR (MDRD) 41 L Glucose 103 H Calcium 13.2 H* Total Bilirubin 0.9 AST 78 H ALT 50 Alkaline Phosphatase 131 H Troponin I 0.04 B-Natriuretic Peptide Total Protein 5.8 L Albumin 3.1 L Globulin 2.7 Albumin/Globulin Ratio 1.1 Lipase 23 Urine Color Urine Clarity Urine pH Ur Specific [place] Urine Protein Urine Glucose (UA) Urine Ketones Urine Occult Blood Urine Nitrite Urine Bilirubin Urine Urobilinogen Ur Leukocyte Esterase Ur Microscopic Review Urine Culture Comments 08/05/18 08/05/18 08:45 09:55 WBC RBC Hgb Hct MCV MCH MCHC RDW Plt Count MPV Neut # (Auto) Lymph # (Auto) [place] # (Auto) Eos # (Auto) Baso # (Auto) Absolute Nucleated RBC Nucleated RBC % Sodium Potassium Chloride Carbon Dioxide Anion Gap BUN Creatinine Estimated GFR (MDRD) Glucose Calcium Total Bilirubin AST ALT Alkaline Phosphatase Troponin I B-Natriuretic Peptide 304 H Total Protein Albumin Globulin Albumin/Globulin Ratio Lipase Urine Color YELLOW Urine Clarity CLEAR Urine pH 6.0 Ur Specific [place] 1.020 Urine Protein NEGATIVE Urine Glucose (UA) NEGATIVE Urine Ketones NEGATIVE Urine Occult Blood NEGATIVE Urine Nitrite NEGATIVE Urine Bilirubin NEGATIVE Urine Urobilinogen 0.2 (NORMAL) Ur Leukocyte Esterase NEGATIVE Ur Microscopic Review NOT INDICATED Urine Culture Comments NOT INDICATED - Rads (name of study) chest Radiology: Prelim report reviewed (Impression: 1. Low lung volumes. Mild bilateral minimal interstitial opacity. Mild central pulmonary vascular congestion.), EMP read indepedently, See rad report Procedures - IVC sono (time) 0810 Bedside IVC sono: IVC measures (cm) (1.88), Euvolemia PD MEDICAL DECISION MAKING - ED course Complexity details: reviewed results, re-evaluated patient, considered differential, d/w patient, d/w family ED course: 83 y/o male with advancing lymphoma has refused chemo or further diagnostics and is in the process of obtaining a second opinion about oncology care. He is weak here today and has pulmonary hypertension and his IVC is plump but he does not appear to be in failure. He has elevated Ca++ and he is given a dose of decadron and a liter of saline for treatment. He will stop his naltrexone and persue follow up with Jeanette Herndon tomorrow. I have encouraged a higher dose of prednisone for palliative care of hypercalcemia. Departure - Departure Disposition: 01 Home, Self Care Clinical Impression: Weakness, Hypercalcemia Condition: Stable Instructions: Hypercalcemia Dc, ED Weakness [facility] Follow-Up: Fausto Arellano MD [Primary Care Provider] - Prescriptions: predniSONE [Deltasone] 10 mg PO [id number] #42 tab Comments: Today Mike has elevated Calcium and this can be a cause of weakness. In his case this is usually due to "lymphoma" or inflammatory condition and this has not as yet been diagnosed. An increase in his dose of prednisone is indicated. I recommend you stop the naltrexone as well.
[2018-08-05] MEDS ORDERED: DEXAMETHASONE 10 MG/ML VIAL IVP STA (08:26)
--- NOTE | 2018-08-05 08:53 | XRAY Report ---
Reason: hypoxia Procedure Date: 08/05/2018 Accession Number: [id number] / [id number] Procedure: XR - Chest 1 View X-Ray CPT Code: 53576 FULL RESULT: EXAM: CHEST RADIOGRAPHY EXAM DATE: 08/05/2018 08:34 AM. CLINICAL HISTORY: Hypoxia. COMPARISON: CHEST 1 VIEW 06/08/2018 12:31 AM ABDOMEN/PELVIS W/ 07/23/2018 5:03 PM CHEST W07/23/2018 5:03 PM. TECHNIQUE: 1 view. FINDINGS: Lungs/Pleura: Low lung volumes. Mild bilateral interstitial opacity, atelectasis, infiltrate, and/or mild interstitial edema. No significant pleural effusion or evidence of pneumothorax. Mediastinum: Borderline heart size. Mild to tortuous, calcified aorta. Mild central pulmonary vascular congestion. Other: None. IMPRESSION: 1. Low lung volumes. Mild bilateral interstitial opacity. Mild central pulmonary vascular congestion. RADIA
[2018-08-05 09:14] LABS: BASOPHILS # (AUTO) 0.1 10^3/uL (0.0-0.1); BASOPHILS % (AUTO) 1.4 %; EOSINOPHILS # (AUTO) 0.2 10^3/uL (0.0-0.7); HGB - HEMOGLOBIN 12.4 g/dL (14.0-18.0); LYMPHOCYTES # (AUTO) 2.3 10^3/uL (1.5-3.5); LYMPHOCYTES % (AUTO) 30.6 %; MEAN CORPUSCULAR HEMOGLOBIN 29.8 pg (27.0-31.0); MEAN CORPUSCULAR HGB CONC 33.6 g/dL (32.0-36.0); MEAN CORPUSCULAR VOLUME 88.6 fL (80.0-94.0); MEAN PLATELET VOLUME 8.8 fL (7.4-11.4); MONOCYTES # (AUTO) 0.9 10^3/uL (0.0-1.0); PLT - PLATELET COUNT 123 10^3/uL (130-450); RED BLOOD COUNT 4.16 10^6/uL (4.70-6.10); RED CELL DISTRIBUTION WIDTH 16.6 % (12.0-15.0); WHITE BLOOD COUNT 7.4 x10^3/uL (4.8-10.8)
[2018-08-05 09:35] LABS: ALBUMIN 3.1 g/dL (3.2-5.5); ALBUMIN/GLOBULIN RATIO 1.1 (1.0-2.2); BILIRUBIN,TOTAL 0.9 mg/dL (0.2-1.0); CREATININE 1.6 mg/dL (0.6-1.2); TOTAL PROTEIN 5.8 g/dL (6.7-8.2)
[2018-08-05 09:36] LABS: CALCIUM 13.2 mg/dL (8.5-10.3)
[2018-08-05 09:42] LABS: BILIRUBIN,URINE NEGATIVE (NEGATIVE); GLUCOSE, URINE (UA) NEGATIVE (NEGATIVE); KETONES,URINE (UA) NEGATIVE (NEGATIVE); LEUKOCYTE ESTERASE, URINE NEGATIVE (NEGATIVE); NITRITE,URINE NEGATIVE (NEGATIVE); OCCULT BLOOD,URINE NEGATIVE (NEGATIVE); PROTEIN,URINE NEGATIVE (NEGATIVE); UROBILINOGEN,URINE 0.2 (NORMAL) E.U./dL (NORMAL)
[2018-08-05 09:44] LABS: CLARITY,URINE CLEAR (CLEAR)
[2018-08-05] MEDS ORDERED: SODIUM CHLORIDE 0.9% 1,000 ML IV ONE (10:09)
[2018-08-05 14:33] VITALS: BP 133/91
== END 2018-08-05 14:59 | disposition home or self-care (01) ==
LOC: EDUNIT# → ED 07:59
DX: E83.52 Hypercalcemia (principal); I27.20 Pulmonary hypertension, unspecified; B02.29 Other postherpetic nervous system involvement; C85.90 Non-Hodgkin lymphoma, unspecified, unspecified site; I10 Essential (primary) hypertension; J84.10 Pulmonary fibrosis, unspecified; Z87.891 Personal history of nicotine dependence; Z85.828 Personal history of other malignant neoplasm of skin; M32.9 Systemic lupus erythematosus, unspecified; Z79.899 Other long term (current) drug therapy
CPT/HCPCS: 36415; 71045; 80053; 81001; 81003; 83690; 83880; 84484; 85025; 87086; 96361; 96374; 99283

== ENCOUNTER 2018-08-07 18:13 | Outpatient (CLI) | payer MEDICARE, OTHER ==
--- NOTE | 2018-08-07 18:43 | CONSULTATION NOTE ---
Palliative Care Follow Up - Referral Referring Provider: Dr Fausto Arellano Time of Visit: Alejandra 08/07/2018. 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 Patient has had numerous ED visits and hospitalizations, most recently ED visit this weekend 08/05/18 or weakness. Found to be hypercalcemic (he's had periodic hypercalcemia for months), treated with decadron and IV saline. Previous to that it was 06/24/18 to ED with suspected /TIA. He was hospitalized at [facility] May 2018 for sepsis, bronchopneumonia, and his chronic decubitus ulcers. Patient was released from this weekend's ED visit on a 10-day prednisone taper for the hypercalcemia, starting at 60mg. Patient is also being seen by kei Dukes. She had recently started him on a compounded medicine of low-dose naltrexone HCL 0.5mg in capsule form x 10 days to improve post-herpetic neuralgia. He went through 9 days of low dose naltrexone and was discontinued on day 9 by ED physician. He did have symptoms of drowsiness, dizziness, exhaustion, brain fog. Stopping naltrexone and starting prednisone taper happened at same time, so it's unknown if his confusion was result of hypercalemia or side effect of low-dose naltrexone. Spouse reports he has not complained of the post-herpetic neuralgia in the past week and a half. Spouse has been using topical CBD product for the neuralgia, but is not applying it currently, patient is not c/o pain. HH RN noted in her home visit on 08/06/18 that his fatigue and weakness had worsened. Today 08/07, patient is lying in bed, dozing on and off. This is unchanged from my first visit with him a month ago. He report tiredness but more energy than before. Sometimes gets woozy in stomach and head. He feels better on the prednisone taper. Patient now stay at home, can't travel, he's too tired and transfers are a hassle. Plus he needs to be near the commode for urgency, both bladder and bowel. Spouse reports improvement in energy levels since starting the steroid taper. He is still ambulatory and self transfers, however is unsteady and weak. She is hyper-vigilant about his self-transfers and ambulation due to the fall risk. She sleeps with him, is exhausted due to "keeping one eye open" and a constant need to be vigilant. He was seen by Dr Castro in oncology 07/30/18. From Dr Castro's notes: "Pt has diffuse adenopathy and splenomegaly. This is likely a lympho-proliferative process, either malignancy such as lymphoma or inflammation such as sarcoidosis. Less likely, but still possible, for m etastatic disease. After much discussion, they would like to have a second opinion to decide on future workup and treatment." Spouse reports they have discussed this with the patient's general office associate, Dr Eula Contreras, and have decided not to pursue workup or biopsy. Spouse is supportive of transition to Hospice when medical criteria are met. We had long discussion of his symptoms, functionality, and weakness, and he doesn't currently meet Hospice criteria. Also had long discussion on caregiver needs and support for the spouse, who reports being exhausted. When he was hospitalized, he had been referred to rheumatology, in addition to oncology. Rheumatology had to cancel the appointment and has not yet called them back. Also referred to ortho, for the RLE necrosis of femur. Patient is on HH RN service for wound care. Coccyx and gluteal cleft wounds are still open, healing well, pink healthy tissue. Spouse applies lidocaine prn for coccyx wound Social History - Living Situation Living arrangement: At home Living Situation: With spouse/s.o. Support System: , has lived [address] on [facility] with his second . He has 2 sons, 1 daughter. His spouse has 2 daughters. 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 He loves to garden. He and his used to travel quite a bit. His daughter was estranged, there has been resolution and she is becoming involved. She lives in [place] (close to the [facility]) and could come on weekends to help out. One of the spouse's daughters lives in [place], and may be able to come out this summer to help them. One of patient's sons, Sidney, had concerns about the Naltrexone started by the [place]. Patient showed me the written communications. Ifrah reports that Lazarus's family, including two older sisters, have been supportive -- but they would not be able to help with caregiving. However, there have been hints of family disagreement about treatment choices. Ifrah reports a good network of neighbors and friends who are supportive, sometimes too much....she jokingly says she needs a medical office secretary to answer emails and calls. Medications/Allergies - Medications Home Medications: Ambulatory Orders Medication Instructions Recorded Confirmed Prednisone 5 mg PO DAILY 06/07/18 07/23/18 Advil Pm 2 tab PO QPM PRN 07/03/18 07/23/18 Lidocaine 5% Topical Ointment 1 ea TOP .UP TO QID 07/03/18 08/08/18 Magnesium Tablet 1 tab PO DAILY PRN 07/03/18 07/23/18 Aspirin [Aspirin EC] 325 mg PO DAILY 07/23/18 07/23/18 Cannabidiol (Cbd) Extract 25 mg PO DAILY 07/23/18 08/08/18 [Epidiolex] Honey [Manuka Honey] 250 mg PO DAILY 07/23/18 08/08/18 predniSONE [Deltasone] 10 mg PO [id number] #42 tab MDD 08/05/18 08/08/18 Start with 60mg - Allergies Allergies/Adverse Reactions: Allergies Allergy/AdvReac Type Severity Reaction Status Date / Time Sulfa (Sulfonamide Allergy Emesis Verified 08/05/18 08:08 Antibiotics) Review of Systems - Constitutional Constitutional: reports: Fatigue, Night sweats, Weight loss (166.7 lbs 08/05/18 at ED (75.75kg, BMI 24.0). 162 lbs 06/30/18 on home scale. Weighed 198 lbs August 2017.) - Ears, Nose & Throat Ears, Nose & Throat: reports: Hearing loss, Tinnitus, Other (sinus problems) - Cardiovascular Cardiovascular: reports: Exertional dyspnea, Decr. exercise tolerance - Respiratory Respiratory: reports: SOB with exertion, Other (3.0-3.5L O2 via NC, continuous) - Gastrointestinal Gastrointestinal: reports: Poor appetite, Other (urgency of bowels; incontinence) - Genitourinary Genitourinary: reports: Urgency, Incontinence - Musculoskeletal Musculoskeletal: reports: Stiffness, Assistive devices (walker and wheelchair), Transfer issues - Integumentary Integumentary: reports: Other (intermittent pain of coccyx/gluteal cleft wounds) - Neurological Neurological: reports: General weakness, Other (tremors; post-herpetic neuralgia) - Psychiatric Psychiatric: reports: Other (sleep problems; he gets up at night to use bathroom) - Hematologic/Lymphatic Hematologic/Lymphatic: reports: Anemia, Bruising Physical Exam - Vital Signs Temperature: 96.4 F Pulse Rate: 72 O2 Saturation: 99 (3.5L O2 NC) Blood Pressure: 146/84 (wrist cuff) - Physical Exam General Appearance: positive: No acute distress, Lethargic, Other Eyes Bilateral: positive: Normal inspection ENT: positive: No signs of dehydration Neck: positive: Trachea midline Cardiovascular: positive: Regular rate & rhythm, No murmur, No gallop Respiratory: positive: Chest non-tender, No respiratory distress. negative: Rhonchi Skin: positive: Bruising (forearm), Pressure wound (coccyx and gluteal cleft wounds are both open, healthy looking with pink new tissue) Extremities: positive: Pedal edema, Other (muscle wasting) Neurologic/Psychiatric: positive: Oriented x3, Flat affect Palliative Care - POLST Patient has POLST: Yes POLST Status: DNR, Selective Treatment Pain: Comment (No complaints of neuropathic pain since naltrexone compound used for it. Spouse treats it with CBD topical. Coccyx wound can still hurt. Spouse treats it with lidocaine.) Performance Status: Fatigue Requires assistance with ADLs Requires assistance with clothing Shower, needs someone present Weak but ambulatory with walker: requires presence/assistance Self transfers Urinary incontinence. Palliative Performance Scale: 50% - Palliative Care Discussion: Very long discussion with spouse about goals of care, caregiving, support of the caregiver and what she needs. They see his Call Center Recruiter, Eula Contreras about every week. They will continue to see her. They discussed the results of the oncology visit with her, and do not want to pursue workup, biopsy, oncology treatment. Goal is to keep him comfortable at home and move him to Hospice when criteria are met. Ifrah has had 35 years of seeing people decline and , and she spent many decades caring for her mentally-ill mother. This includes 5 years of difficult decline, with 2 years of living with her and providing hands-on caregiving. So she knows this road and what to expect. She plans to take care of him herself. She is exhausted because she's constantly vigilant, can't sleep well at night, but so far it is working, by her reckoning. Fortunately he still uses the toilet and commode. The patient is mentally clear right now and she is grateful for that. She would consider other options if care became too taxing or his mental status deteriorated. What she says she needs is another person in the house, another set of hands. She is hoping to have her daughter, from [place], move in with them, at least for the summer. She says she doesn't need medications, pain meds or doctor's appointments. She will continue with their general office associate for that. What she wants from Palliative Care is to be customer care consultant for support, and to help transition the patient to Hospice when the time comes. She is happy with [employer], particularly the home services: Home Health and Palliative Care. She thinks it's amazing and wonderful to have this support available to the community and she talks to her friends about it. She has requested to add Home Health Aid to their services. She hoped for hospital bed from Medicare; [facility] provided education and information on new reimbursement schedule for beds and extended wait time. It actually costs more to get a hospital bed from Medicare than to rent or private pay. Recommended they buy privately or go through organizations that donate durable medical equipment to patients. They do have a family member whose business has access to used DME. 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 At a recent oncology visit with Dr Castro they were told he likely has a lymphoproliferative process such as malignancy or inflammation, next step to confirm would be biopsy. Patient has decided not to pursue further workup or biopsy. He is being managed by a Call Center Recruiter, Dr Eula Contreras. He has Home Health Nursing for coccyx wound care and would like bath aid too. Palliative care to offer support and monitoring for transition to Hospice when criteria are met. Recommendations/Counseling Done: Pulmonary HTN with idiopathic pulmonary fibrosis: Had been followed by Dr Felix Parham at [facility], family does not plan to continue. Continue oxygen 3L via NC. Was on low dose prednisone; now on prednisone 10-day taper, starting at 60mg, for hypercalemia. General weakness: Patient went to ED this weekend for generalized weakness. He didn't bounce back from last week's setback (increased confusion/weakness) while undergoing the low-dose (0.5mg) naltrexone 10-day regimen. Labs showed his hypercalcemia spiked. to critical level, 13.2 Spouse opted not to continue PT, says he is too weak to continue with HH PT. She decline to put PT on hold. PT advised her if training is needed for higher level transfers, or positioning in bed, PT can be reordered. Hypercalemia: Intermittent episodes for months. At ED this weekend, calcium critically elevated at 13.2. He was treated and released on prednisone 10-day taper: 60 mg days 1-4. 40mg days 5-7. 20 mg days 8-10. Adenopathy: He was seen by Dr Castro in oncology 07/30/18, due to weight loss, night sweats. Per Dr Castro's notes: "Pt has diffuse adenopathy and splenomegaly. This is likely a lympho-proliferative process, either malignancy such as lymphoma or inflammation such as sarcoidosis. Less likely, but still possible, for metastatic disease." Biopsy needed to confirm. Patient and spouse discussed with their general office associate. They decided not to pursue biopsy or further workup. Post-herpetic polyneuropathy: No complaints of neuropathic pain recently, possibly due to low-dose Naltrexone (0.5mg) x 10 days (but DC'd by ED after 9 days). Spouse has used CBD topical products for pain control previously. They are seeing a general office associate, Eula Contreras, for medical management; she started the naltrexone. Coccyx/buttocks pressure wound: Managed by Home Health RN since 06/30. Wound improving, can still be painful. The wound bed has pink, healthy tissue. Spouse would now like to add Home Health Aid (she has previously declined this service.) Coordinated with Home Health. Necrosis of R femur: Referred to ortho; unclear if they intend to follow up; likely not. Spouse hypervigilant toward patient for fear of his falling. He remains ambulatory and weak. She needs another person in the house; possibly her daughter will move in at least for the summer. Advance care planning: POLST signed: DNR and selective treatment. Goal is comfort, pain control. They have decided not to pursue biopsy or further workup on the possible lymphoma. They want transition to Hospice when medical criteria are met, which he does not currently meet (no end-of-life diagnosis/6-month prognosis; BMI in normal range; ambulatory, not bedbound). They plan to continue to consult with the general office associate; it's unclear how that would work with Hospice service. Spouse has said she doesn't want medical or medicine management from Palliative Care, but wants on-call for support and monitoring for transition to Hospice. Long discussion on caregiving support for spouse. She has extensive experience with caregiving at end of life. She says all she needs is another pair of hands. She is hopeful her daughter from [place] will relocate here, at least for the summer. Spouse says she can handle the caregiving at present; patient still has cognitive function, and is still able to use toilet/commode. She may reconsider having him at home if his condition worsens and he requires more intensive care. She understands that Hospice does not provide usp caregiving. Spouse expresses her satisfaction with and gratitude for the support from [facility] Home Health and Palliative Care services. Spouse said she will call Palliative Care as needed. Time Spent: 55 minutes were spent with more than 50% of the time spent on counseling, education, and providing anticipatory guidance.
== END 2018-08-07 18:14 | disposition home or self-care (01) ==
LOC: PC 18:13
PROVIDERS: ATTEND Nurse Practitioner
DX: Z51.5 Encounter for palliative care (principal); I27.20 Pulmonary hypertension, unspecified; M32.13 Lung involvement in systemic lupus erythematosus; B02.23 Postherpetic polyneuropathy; L89.40 Pressure ulcer of contiguous site of back, buttock and hip, unspecified stage; R63.4 Abnormal weight loss; R61 Generalized hyperhidrosis; I73.00 Raynaud's syndrome without gangrene; J84.10 Pulmonary fibrosis, unspecified; Z99.81 Dependence on supplemental oxygen; I13.0 Hypertensive heart and chronic kidney disease with heart failure and stage 1 through stage 4 chronic kidney disease, or unspecified chronic kidney disease; N18.3 Chronic kidney disease, stage 3 (moderate); I50.9 Heart failure, unspecified; M35.00 Sjogren syndrome, unspecified; D69.6 Thrombocytopenia, unspecified; M87.9 Osteonecrosis, unspecified; M89.751 Major osseous defect, right pelvic region and thigh; R32 Unspecified urinary incontinence; R35.0 Frequency of micturition; H91.90 Unspecified hearing loss, unspecified ear; R19.7 Diarrhea, unspecified; Z66 Do not resuscitate; R26.2 Difficulty in walking, not elsewhere classified; Z72.89 Other problems related to lifestyle; Z79.52 Long term (current) use of systemic steroids; Z87.891 Personal history of nicotine dependence; Z85.820 Personal history of malignant melanoma of skin; Z87.01 Personal history of pneumonia (recurrent); Z86.73 Personal history of transient ischemic attack (TIA), and cerebral infarction without residual deficits
CPT/HCPCS: 99349

== ENCOUNTER 2018-08-14 08:00 | Outpatient (CLI) | payer MEDICARE, OTHER ==
[2018-08-14 17:59] LABS: BASOPHILS % (AUTO) 0.3 %; EOSINOPHILS % (AUTO) 1.9 %; HGB - HEMOGLOBIN 11.4 g/dL (14.0-18.0); LYMPHOCYTES % (AUTO) 15.8 %; MEAN CORPUSCULAR HEMOGLOBIN 30.5 pg (27.0-31.0); MEAN CORPUSCULAR HGB CONC 33.6 g/dL (32.0-36.0); MEAN CORPUSCULAR VOLUME 90.6 fL (80.0-94.0); MEAN PLATELET VOLUME 8.3 fL (7.4-11.4); MONOCYTES % (AUTO) 7.1 %; NEUTROPHILS % (AUTO) 74.9 %; PLT - PLATELET COUNT 111 10^3/uL (130-450); RED BLOOD COUNT 3.73 10^6/uL (4.70-6.10); RED CELL DISTRIBUTION WIDTH 16.3 % (12.0-15.0); WHITE BLOOD COUNT 6.7 x10^3/uL (4.8-10.8)
[2018-08-14 18:05] LABS: ABNORMAL LYMPHS % (MANUAL) 0 %; BAND NEUTROPHILS % (MANUAL) 0 %
[2018-08-14 18:10] LABS: ALBUMIN 3.2 g/dL (3.2-5.5); ALBUMIN/GLOBULIN RATIO 1.4 (1.0-2.2); BILIRUBIN,TOTAL 0.8 mg/dL (0.2-1.0); CALCIUM 9.5 mg/dL (8.5-10.3); TOTAL PROTEIN 5.5 g/dL (6.7-8.2)
[2018-08-14 18:36] LABS: EOSINOPHILS # (MANUAL) 0.1 10^3/uL (0-0.7); LYMPHOCYTES % (MANUAL) 15 %; MONOCYTES # (MANUAL) 0.3 10^3/uL (0.0-1.0); NEUTROPHILS # (MANUAL) 5.2 10^3/uL (1.5-6.6); NEUTROPHILS % (MANUAL) 78 %
[2018-08-14 18:37] LABS: DIFFERENTIAL COMMENT MANUAL DIFFERENTIAL; PLATELET ESTIMATE, MANUAL NORMAL (130-450,000) (NORMAL); PLATELET MORPHOLOGY NORMAL APPEARANCE (NORMAL); RBC MORPHOLOGY (MULTIPLE) 1+ ANISOCYTOSIS (NORMAL)
== END 2018-08-14 23:59 | disposition home or self-care (01) ==
LOC: LAB.F 08:00
PROVIDERS: ATTEND Nurse Practitioner Family
DX: N18.3 Chronic kidney disease, stage 3 (moderate) (principal); D69.6 Thrombocytopenia, unspecified; E83.50 Unspecified disorder of calcium metabolism
CPT/HCPCS: 36415; 80053; 83970; 85025

== ENCOUNTER 2018-08-20 11:25 | Outpatient (CLI) | payer MEDICARE, OTHER ==
--- NOTE | 2018-08-20 16:01 | CONSULTATION NOTE ---
Palliative Care Follow Up - Referral Referring Provider: Dr Arellano Time of Visit: 08/20/2018. 11:25 - 12:45 Referral setting: Home Referral Reason: Neurogenic pain, restless leg - Information Sources Records reviewed: Previous records reviewed History/Review of Systems obtained from: Patient, Family Exam limitations: Clinical condition (vague, poor historian, sedated from medication) - History of Present Illness Update Brief HPI Update: 83-year-old man with complex medical history including lung disease with SLE, Reynaud's syndrome, herpes zoster with post-herpetic polyneuropathy, pulmonary HTN with idiopathic pulmonary fibrosis and oxygen dependence, CHF, CKDIII, Sjogren's syndrome, and pressure wound of coccyx/sacrum. They had 07/30/[address] Castro, who told them tests indicate patient likely has a lymphoproliferative process such as lymphoma, or inflammation such as sarcoidosis, or, less likely, metastatic disease. Biopsy would be needed to confirm. Patient and spouse both decline to pursue biopsy or further workup and would not want cancer treatment if it is a malignancy. Medical History: Lymphoproliferative process (eg, lymphoma, sarcoidosis, malignancy), patient declines biopsy and workup; oxygen dependence with pulmonary HTN with idiopathic pulmonary fibrosis and lung disease with systemic lupus erythematosus; Reynaud's syndrome; herpes zoster with post-herpetic polyneuropathy; HTN; CHF (denied by patient and ): CKD III; Sjogren's syn drome; and pressure wound of coccyx/sacrum; thrombocytopenia disorder; h/o TIA; avascular necrosis of R femoral head; patient-reported h/o melanoma. Patient has a history of frequent ED visits and hospitalizations, most recently to the ED 08/05/18 for weakness and hypercalcemia, possibly exacerbated by the 30g calcium supplement daily, or as part of the disease process if he has a malignancy. He's had periodic hypercalcemia for months. He was treated with IV hydration and a 10-day prednisone taper (started at 60mg), recently completed. He is back to 5mg prednisone daily. Starting yesterday, patient has been agitated and restless, spouse described it as being "wild eyed" and incoherent. It started yesterday when they had company and a lot of activity in the house. Spouse wonders if he got worked up about that. She wonders if maybe he had another TIA, his speech was slurred this morning. During this visit his VACCINE KEY CUSTOMER LEADER tests were all normal. Patient has been having restless leg syndrome (L leg) for about a week, 10 days. He was hypercalemic at the 08/05/18 ED visit, and calcium was back normal levels on 08/14. His spouse has stopped giving him the daily 30g of calcium supplements in his protein shake He is a poor historian, unable to describe his pain or sensations, is mildly confused and appears sedated. Spouse had given him two Advil PM (with diphenhydramine) prior to this visit, which has sedated him. Patient denies neuralgic pain in ribs/torso currently, but spouse reports that he often complains of pain on one side of his ribcage/torso. He also has arthritic pain in toes, and his big toes and first metatarsal can be tender to the touch. His L first toenail is thickened and discolored yellow- brown and is tender to the touch, other toes and feet are not sensitive today. She gives him 2 AdvilPM at night Patient has an appointment with the PCP in the morning. She is hoping for an order for hydration by IV, she reports that IV hydration, and prednisone therapy are the "two things" that make him feel better. He remains ambulatory and able to use the toilet or commode. Spouse is considering transferring him to a facility in [place] which the patient's sister has experience with and recommends: [facility]. He continues to be managed by mill beam fitter Dr Eula Contreras. He continues Home Health Nursing for coccyx wound care and has bath aid too. Social History - Living Situation Living arrangement: At home Living Situation: With spouse/s.o. Support System: , has lived [address] [facility] with his second . He has 2 sons, 1 daughter. His spouse has 2 daughters. 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 He loves to garden. He and his used to travel quite a bit. His daughter was estranged, there has been resolution and she is becoming inv olved. She lives in [place] (close to the [facility]) and could come on weekends to help out. One of the spouse's daughters lives in [place], and may be able to come out this summer to help them. Ifrah reports that Lazarus's family, including two older sisters, have been supportive -- but they would not be able to help with caregiving. Ifrah reports a good network of neighbors and friends who are supportive. Medications/Allergies - Medications Home Medications: Ambulatory Orders Medication Instructions Recorded Confirmed Prednisone 5 mg PO DAILY 06/07/18 08/20/18 Advil Pm 2 tab PO QPM PRN 07/03/18 08/20/18 Lidocaine 5% Topical Ointment 1 ea TOP .UP TO QID 07/03/18 08/20/18 Magnesium Tablet 2 tab PO DAILY PRN MDD Magnesium 07/03/18 08/20/18 malate 360mg Aspirin [Aspirin EC] 325 mg PO DAILY 07/23/18 08/20/18 Cannabidiol (Cbd) Extract 25 mg PO DAILY PRN 07/23/18 08/20/18 [Epidiolex] Honey [Manuka Honey] 250 mg PO DAILY 07/23/18 08/20/18 B Complex Supplement 3 cap PO DAILY PRN 08/20/18 Gabapentin 100 mg PO QPM MDD taper up to 08/20/18 08/20/18 300mg QPM Potassium Supplement 99mg 99 mg PO DAILY PRN 08/20/18 08/20/18 - Allergies Allergies/Adverse Reactions: Allergies Allergy/AdvReac Type Severity Reaction Status Date / Time Sulfa (Sulfonamide Allergy Emesis Verified 08/05/18 08:08 Antibiotics) Review of Systems - Constitutional Constitutional: reports: Fatigue, Weakness, Weight loss (166.7 lbs 08/05/18 at ED (75.75kg, BMI 24.0). 162 lbs 06/30/18 on home scale. Weighed 198 lbs August 2017.) - Ears, Nose & Throat Ears, Nose & Throat: reports: Hearing loss, Tinnitus - Cardiovascular Cardiovascular: reports: Decr. exercise tolerance. denies: Chest pain - Respiratory Respiratory: denies: Cough, SOB at rest, SOB with exertion - Gastrointestinal Gastrointestinal: reports: Other (eats alright. drinks fluids with encouragement from spouse). denies: Constipation, Nausea (reports quesiness), Vomiting - Genitourinary Genitourinary: reports: Urgency, Incontinence, Nocturia. denies: Dysuria - Musculoskeletal Musculoskeletal: reports: Assistive devices (walker), Transfer issues (assistance from spouse) - Integumentary Integumentary: reports: Nail changes (Left great toe has chronic fungal infection; thickened, discolored nail), Other (coccys/anal open pressure wounds are intermittently painful with bowel movements) - Neurological Neurological: reports: General weakness, Abnormal gait, Slurred speech (this morning, but not during SENIOR SALES COMPENSATION ANALYST assessment), Other (recent onset of RLS with left leg. Doesn't bother patient, but keeps his awake) - Psychiatric Psychiatric: reports: Aggitation Physical Exam - Vital Signs Temperature: 96.3 F Pulse Rate: 74 O2 Saturation: 95 (room air) Blood Pressure: 135/78 (wrist cuff) - Physical Exam General Appearance: positive: No acute distress, Lethargic, Other (vague answers , poor historian, seems sedated and trouble forming answers. Was given AdvilPM (contains Benadryl) prior to this visit) Eyes Bilateral: positive: Normal inspection, PERRL, EOMI ENT: positive: No signs of dehydration Neck: positive: Trachea midline Cardiovascular: positive: Regular rate & rhythm, Systolic murmur (2/6) Respiratory: positive: No respiratory distress, Breath sounds nml, Diminished in bases. negative: Wheezes, Rales, Rhonchi Skin: positive: Pallor, Dryness Neurologic/Psychiatric: positive: Disoriented to time, Flat affect Palliative Care - POLST Patient has POLST: Yes POLST Status: DNR, Selective Treatment Pain: Pain unchanged, Location (one side of ribs/torso, and the toes), Comment (patient has difficulty describing pain, but has a h/o of post-herpetic neuralgia) Tiredness/Fatigue: Moderate (4-6), Comment (sleeps/dozes most of the time. Wakes up 10pm, 2am, 4am to use toilet or commode) Drowsiness/Sedation: Moderate (4-6) Nausea: None (denies nausea and vomiting but says stomach is quesy) Dyspnea: None Anorexia: Mild (1-3) (still eats, but is losing weight), Weight loss (30 lb weight loss since August 2017: 198 lbs to 166 lbs at ED visit 08/05/18) Constipation: No Performance Status: Fatigue Sleeps/doses most of the day, sleeps at night too Requires assistance with ADLs Requires assistance with clothing Shower, needs someone present Weak but ambulatory with walker Self transfers: requires presence/assistance Urinary incontinence/urgency, but uses toilet and commode. Palliative Performance Scale: 50% - Palliative Care Discussion: Spouse is getting more and more exhausted being the sole caregiver and trying to sleep with the patient at night. His restlessness and getting up 3 times throughout the night to use the toilet are wearing her out. She is unable to relax her vigilance to sleep. So she's coming around to the idea of putting him in a facility. Her [id number] (the patient's brother) has recommended [facility] in [place] because she has put a family member in it. I did debt and budget counselor the spouse to call them as soon as possible to start the process and obtain the information she will need. Apparently it is a small facility. She does understand that if the [place] Pall[place] [facility] will not be able to provide service while he is [place]. She is using a facility floor broker, "[employer]" to help research. I gave her the name of [facility]. Her concern is the patient has enough cognition so that he might refuse to go. I counselled her to go forward with research and contacting the facilities, perform her due diligence, and get him on a waiting list, if needed. She is considering moving him into a facility in the near future. She is realizes she is unable to continue to keep up with his care needs. We did discuss the option of in-home caregivers; she is not interested in this, understands the drawbacks. [place] She reconfirms that they will not get a biopsy or do any further workup regarding the "likely lympho-proliferative process" outlined by Dr Castro. If the patient has cancer they would not go through treatment. The goals are to keep him comfortable and manage the neuralgic pain and his restlessness, including RLS. Spouse agrees to the plan of starting a low dose gabapentin with slow taper upward. Spouse is supportive of transitioning him to Hospice when he meets medical criteria. He was hypocalemic at the ED visit 08/05/18, but calcium levels normalized by last week, 08/14/18. Results - Lab Results Lab results reviewed: Yes Lab and Imaging Results: 08/14/18 08/05/18 WBC 6.7 WBC 7.4 RBC 3.73 L RBC 4.16 L Hgb 11.4 L Hgb 12.4 L Hct 33.8 L Hct 36.9 L MCV 90.6 MCV 88.6 RDW 16.3 H RDW 16.6 H Plt count 111 L Plt count 123 L Na 143 Na 138 K+ 3.2 L K+ 3.8 Chk 98 L Chl 94 L CO2 34 H CO2 35 H BUN 24 H BUN 35 H Cr 1.0 Cr 1.6 H GFR 71 L GFR 41 L Glu 102 H Glu 103 H Ca 9.5 Norm Ca 13.2 H* AST 27 AST 78 H ALT 28 ALT 50 Alk Phos 104 Alk Phos 131 H Tot protein 5.5 L Total protein 5.8 L Albumin 3.2 Albumin 3.1 L Impression and Recommendations - Palliative Care Impression: 83-year-old man with very complex medical history including lung disease with SLE, Reynaud's syndrome, herpes zoster with post-herpetic polyneuropathy, pulmonary HTN with idiopathic pulmonary fibrosis and oxygen dependence, CHF, CKDIII, intermittent hypercalcemia x several months, and pressure wound of coccyx/sacrum. Calcium levels were back to normal last week. Labs have indicated a likely lymphoproliferative process such as lymphoma, inflammation (eg, sarcoidosis) or less likely but still possible, a metastasis. Patient and spouse decline a biopsy, any further workup, and do not want treatment of the cancer. They agreed to start gabapentin for neuropathic pain and RLS. He continues to be seen by Home Health Nursing for coccyx wound care and bath aid. He continues to be seen by [facility], Dr Eula Contreras. Palliative care will continue to provide support and monitoring for transition to Hospice when criteria are met. Recommendations/Counseling Done: Pulmonary HTN with idiopathic pulmonary fibrosis: Back to 5mg prednisone daily. Continue oxygen 3L via [place] most of time (though not using it during today's visit). Dr Felix Parham at [facility], family does not plan to continue. Was seeing Dr Felix Parham at [facility], they do not plan to continue seeing him. Hypercalemia: Back to normal levels (9.5) at 08/14/18 lab draw, with the prednisone taper, and spouse stopping the calcium supplements (30g daily) she put in his protein shakes. Malignancy can increase calcium levels. Post-herpetic polyneuropathy: Start gabapentin taper upward: 100 mg capsule, 1 cap (100mg) QPM x 3 days, then 2 caps (200mg) x 3 days, then 3 caps (300mg) QPM ongoing. Monitor neuropathic pain and his RLS symptomes, and continue titrating to BID, then TID, if indicated. Counselled spouse on side effects, and that it can take several weeks for results to manifest. Agreed to Palliative Care follow up visits every two weeks. Coccyx/buttocks pressure wound: HH RN and bath aid visit 2x week, for wound care and hygiene. Adenopathy: Per Dr Castro, oncologist, on 07/30/18, he likely has a lympho- proliferative process, likely lymphoma, or inflammation such as sarcoidosis. Also possible (but unlikely) is metastatic disease. Patient has refused biopsy for confirmation, and would not undergo treatment for cancer. Advance care planning: POLST: DNR, selective treatment. Goal is comfort, pain control. Declined biopsy, further workup, because they would not pursue cancer treatment. Spouse is [place], due to increased burden of being the sole caregiver and caregiver exhaustion. She is concerned he may refuse to go due to his cognitive functioning, so she may inquire about trialing him on respite care. Next visit: 09/04 10:00 Time Spent: Time Spent: 80 minutes were spent with more than 50% of the time spent on counseling, education, providing anticipatory guidance and coordination of care with spouse.
== END 2018-08-20 11:26 | disposition home or self-care (01) ==
LOC: PC 11:25
PROVIDERS: ATTEND Nurse Practitioner
DX: Z51.5 Encounter for palliative care (principal); I27.20 Pulmonary hypertension, unspecified; B02.23 Postherpetic polyneuropathy; G25.81 Restless legs syndrome; M32.13 Lung involvement in systemic lupus erythematosus; I73.00 Raynaud's syndrome without gangrene; J84.10 Pulmonary fibrosis, unspecified; Z99.81 Dependence on supplemental oxygen; I13.0 Hypertensive heart and chronic kidney disease with heart failure and stage 1 through stage 4 chronic kidney disease, or unspecified chronic kidney disease; N18.3 Chronic kidney disease, stage 3 (moderate); I50.9 Heart failure, unspecified; E83.52 Hypercalcemia; M35.00 Sjogren syndrome, unspecified; L89.159 Pressure ulcer of sacral region, unspecified stage; D69.6 Thrombocytopenia, unspecified; M87.9 Osteonecrosis, unspecified; R59.9 Enlarged lymph nodes, unspecified; R26.9 Unspecified abnormalities of gait and mobility; H91.90 Unspecified hearing loss, unspecified ear; H93.19 Tinnitus, unspecified ear; R39.15 Urgency of urination; R32 Unspecified urinary incontinence; R35.1 Nocturia; B35.1 Tinea unguium; Z66 Do not resuscitate; Z79.52 Long term (current) use of systemic steroids; Z79.82 Long term (current) use of aspirin; Z85.820 Personal history of malignant melanoma of skin; Z86.73 Personal history of transient ischemic attack (TIA), and cerebral infarction without residual deficits
CPT/HCPCS: 99350

== ENCOUNTER 2018-09-04 16:32 | Outpatient (CLI) | payer MEDICARE, OTHER ==
--- NOTE | 2018-09-04 17:22 | CONSULTATION NOTE ---
Palliative Care Follow Up - Referral Referring Provider: Dr Arellano Time of Visit: Monday09/04/2018. 10:25 - 11:25 Referral setting: Home Referral Reason: Post-herpetic neuralgia - Information Sources Records reviewed: Previous records reviewed History/Review of Systems obtained from: Patient, Family Exam limitations: No limitations - History of Present Illness Update Brief HPI Update: 83-year-old man with complex medical history including lung disease with oxygen dependence; post-herpetic polyneuropathy; unbiopsied lymphoproliferative process, possibly lymphoma; and healing pressure wound of coccyx/sacrum. Medical History: Lymphoproliferative process (eg, lymphoma, sarcoidosis, m alignancy), patient declines biopsy and workup; oxygen dependence with pulmonary HTN with idiopathic pulmonary fibrosis and lung disease with systemic lupus erythematosus; Reynaud's syndrome; herpes zoster with post-herpetic polyneuropathy; HTN; CHF (denied by patient and ): CKD III; Sjogren's syndrome; and pressure wound of coccyx/sacrum; thrombocytopenia disorder; h/o TIA; avascular necrosis of R femoral head; patient-reported h/o melanoma. Patient today is awake, alert, sitting at dining table eating breakfast. This is the first Palliative Care visit that the patient has been upright, alert, articulate and not lying in bed dozing off and on. His spouse, Ifrah, reports he's been doing well for about a week and is completely independent, showering himself, taking care of his ADLs and eating well. His pressure wound of coccyx/gluteal cleft is healing well. Ifrah believes this significant improvement is due to the mycophenilate mofetil finally working out of his system. Their industrial x ray operator had discontinued it around the beginning of June. It was started in September 2017, an immuno-suppressant, apparently due to patient's history of SLE flares. On 07/30/18 at their oncology visit with Dr Castro, they decided not to pursue biopsy or further workup. Tests had indicated patient may have a lymphoproliferative process such as lymphoma, or inflammation such as sarcoidosis, or, less likely, metastatic disease. Biopsy is needed to confirm. Since then, two of the patient's adult children have requested that they (patient and his spouse) go ahead and have the biopsy. They are currently discussing this, and would like to consult again with Dr Castro. Patient continues to consult industrial x ray operator Dr Eula Contreras and continues with Home Health Nursing for coccyx wound care. It's unclear what his pulmonary diagnosis is. Per Ifrah, he was given a diagnosis of pulmonary hypertension, around the time he was prescribed mycophenilate. This diagnosis was changed by Dr Curran of [facility] to pulmonary fibrosis. Social History - Living Situation Living arrangement: At home Living Situation: With spouse/s.o. Support System: , has lived [address] on [facility] with his second . He has 2 sons, 1 daughter. His spouse has 2 daughters. 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 He loves to garden. He and his used to travel quite a bit. His daughter was previously estranged, is now back in touch with patient and spouse. She lives in [place]. Patient's one son also lives in the [facility] area. The spouse has a daughter in [place], she was hoping this daughter could spend the summer here to provide help, but that fell through. Ifrah reports that Lazarus's family, including two older sisters, have been supportive -- but they would not be able to help with caregiving. Ifrah reports a good network of neighbors and friends who are also supportive but are not able to provide ongoing, routine support or care. Medications/Allergies - Medications Home Medications: Ambulatory Orders Medication Instructions Recorded Confirmed Prednisone 5 mg PO DAILY 06/07/18 09/04/18 Advil Pm 2 tab PO QPM PRN 07/03/18 09/04/18 Lidocaine 5% Topical Ointment 1 ea TOP .UP TO QID 07/03/18 09/04/18 Magnesium Tablet 2 tab PO DAILY PRN MDD Magnesium 07/03/18 09/04/18 malate 360mg Cannabidiol (Cbd) Extract 25 mg PO DAILY PRN 07/23/18 09/04/18 [Epidiolex] Honey [Manuka Honey] 250 mg PO DAILY 07/23/18 09/04/18 B Complex Supplement 3 cap PO DAILY PRN 08/20/18 09/04/18 Potassium Supplement 99mg 99 mg PO DAILY PRN 08/20/18 09/04/18 Aspirin [Adult Aspirin Regimen] 81 mg PO DAILY PRN 09/04/18 09/04/18 Gabapentin/Lidocaine Compound 1 ea TOP DAILY PRN 09/04/18 - Allergies Allergies/Adverse Reactions: Allergies Allergy/AdvReac Type Severity Reaction Status Date / Time Sulfa (Sulfonamide Allergy Emesis Verified 08/05/18 08:08 Antibiotics) Review of Systems - Constitutional Constitutional: reports: Fatigue, Weakness, Weight loss (most recent 166.7 lb 08/05/18 in ED. BMI 24). denies: Fever, Chills, Poor appetite - Ears, Nose & Throat Ears, Nose & Throat: reports: Hearing loss - Cardiovascular Cardiovascular: reports: Exertional dyspnea, Decr. exercise tolerance - Respiratory Respiratory: reports: SOB with exertion (mild) - Gastrointestinal Gastrointestinal: reports: Good appetite. denies: Constipation - Genitourinary Genitourinary: reports: Incontinence, Nocturia - Musculoskeletal Musculoskeletal: reports: Joint pain (arthritis, general), Assistive devices (walker). denies: Transfer issues - Integumentary Integumentary: reports: Other (coccyx wound improving) - Neurological Neurological: reports: General weakness, Abnormal gait. denies: Slurred speech - Psychiatric Psychiatric: denies: Depression, Anxiety Physical Exam - Vital Signs Temperature: 96.5 F Pulse Rate: 75 O2 Saturation: 95 (room air) Blood Pressure: 130/68 (arm cuff) - Physical Exam General Appearance: positive: No acute distress, Alert Eyes Bilateral: positive: Normal inspection, No lid inflammation ENT: positive: No signs of dehydration, Dry mucous membranes Neck: positive: Trachea midline Cardiovascular: positive: Regular rate & rhythm, No murmur, No gallop Respiratory: positive: Chest non-tender, No respiratory distress, Diminished in bases (very mildly rough sounding in bases) Skin: positive: Pressure wound (coccyx; gluteal cleft) Neurologic/Psychiatric: positive: Oriented x3, Mood/affect nml Palliative Care - POLST Patient has POLST: Yes POLST Status: DNR, Selective Treatment Pain: Pain improved, Location (On R side of torso from breast bone, across R r ibs around the back to spine), Comment (post-herpetic neuralgia, alleviated with topical creams) Tiredness/Fatigue: Mild (1-3) Drowsiness/Sedation: Mild (1-3) Nausea: None Depression: None Anxiety: None Dyspnea: Mild (1-3), Comment (only with exertion) Anorexia: None Sleep: Sleep improved Constipation: No Feelings of wellbeing/Perceived Quality of Life: Fair Performance Status: ambulatory, stiff, precarious balance performing own ADLs and showers uses the toilet sleeping improved good appetite - Palliative Care Discussion: Patient and his had decided, after their first visit with Dr Castro, to not purse having a biopsy of his lymph nodes. Diagnostics tests had indicated some myeloproliferative process, possibly lymphoma. Biopsy is required for diagnosis. The patient's adult children, particularly his daughter who lives in [place], have asked why he has not wanted a biopsy and they have requested that they reconsider this decision. Patient reiterated today that he doesn't want an excisional biopsy -- he doesn't want to be "cut." He also doesn't want to undergo anesthesia, nor any chemotherapy. Discussed this at length with patient and his ,and both are agreeable to having a second consultation with Dr Castro. They are planning a family meeting this weekend, and the plan is to invite the children to the consultation. [facility] counselled them to prepare a written list of all their questions. They will discuss this with his children this weekend, and the spouse will make an appointment with Dr Castro, either at the [facility] at the [facility]. Spouse is getting more sleep now that the patient's condition has improved. She still has a fear of leaving him alone. So she deals with feelings of isolation and feeling trapped. She would like an "extra pair of hands." At this time family members are not available or offering to help out. She does have a next door neighbor she can call on, as well as the woman who is renting from them and provides part-time housekeeping. Impression and Recommendations - Palliative Care Impression: 83-year-old man with very complex medical history, and diagnostics indicate a lymphoproliferative process, possibly lymphoma. Patient initially decided against havign a biopsy but after his adult children asked him to reconsiderand his would like a second consultation with Dr Castro, to include the adult children. Recommendations/Counseling Done: Lung disease / idiopathic pulmonary fibrosis: SOA improved, patient using supplemental oxygen less. He continues on 5mg prednisone daily. Post-herpetic polyneuropathy: Spouse decided not to start him on the gabapentin that Palliative Care ordered at the 08/20/18 visit. She doesn't want any medication that would affect the kidneys. Instead they started a topical compound of gabapentin and lidocaine. Patient reports he still has post-herpetic neuropathy on the R torso. His restless leg symptoms have improved, sleep has improved. Coccyx/buttocks pressure wound: Improving. HH RN provides wound care 2x week. Patient is receives laser treatment through the industrial x ray operator. Adenopathy: Tests indicated a likely lymphoproliferative process. Patient had previously decided against biopsy because he does not want to have chemotherapy. Family has asked patient and his spouse to consider having a biopsy done to confirm if it's lymphoma or another condition. Advance care planning: POLST: DNR, selective treatment. Goal is comfort, managem ent of pain, and improving quality of life. Patient still prefers no biopsy, especially excisional, and would not want anesthesia or chemotherapy (he doesn't want more toxins in his body). However he and his are agreeable to arranging another consultation with Dr Castro, with the patient's adult children present to have their questions answered about the biopsy procedure and treatment options. They're having a family meeting this weekend and will follow up with Dr Castro's office afterwards to arrange an appointment at either [facility]. Time Spent: 60 minutes were spent with more than 50% of the time spent on counseling, education, and coordination of care with [facility] and patient's spouse regarding oncology follow up consultation.
== END 2018-09-04 16:33 | disposition home or self-care (01) ==
LOC: PC 16:32
PROVIDERS: ATTEND Nurse Practitioner
DX: Z51.5 Encounter for palliative care (principal); J84.112 Idiopathic pulmonary fibrosis; B02.29 Other postherpetic nervous system involvement; L89.159 Pressure ulcer of sacral region, unspecified stage; R59.9 Enlarged lymph nodes, unspecified; I27.20 Pulmonary hypertension, unspecified; I13.0 Hypertensive heart and chronic kidney disease with heart failure and stage 1 through stage 4 chronic kidney disease, or unspecified chronic kidney disease; I50.9 Heart failure, unspecified; N18.3 Chronic kidney disease, stage 3 (moderate); Z99.81 Dependence on supplemental oxygen; Z66 Do not resuscitate; Z79.52 Long term (current) use of systemic steroids
CPT/HCPCS: 99350

== ENCOUNTER 2018-10-25 08:06 | Outpatient (CLI) | payer MEDICARE, OTHER | END 2018-10-25 08:07 | disposition home or self-care (01) | LOC: LAB.S 08:06 | PROVIDERS: ATTEND Family Medicine | DX: E83.52 Hypercalcemia (principal) | CPT/HCPCS: 36415; 82310 ==

== ENCOUNTER 2018-11-26 10:16 | Observation (INO) | payer MEDICARE, OTHER ==
[2018-11-26] MEDS ORDERED: FUROSEMIDE 40 MG/4 ML VIAL IVP STA (10:44)
--- NOTE | 2018-11-26 10:46 | ED Physician Documentation ---
History of Present Illness - Stated complaint Stated Complaint: BODY SWELLING - Chief complaint Chief Complaint: Abd Pain - History obtained from History obtained from: Patient, Family - History of Present Illness Timing: How many weeks ago (1) - Additonal information Additional information: 83-year-old male with a history of pulmonary fibrosis and lymphadenopathy with lupus has developed fluid retention over the past. He is noted that his abdomen is become distended and he is more short of breath with any exertion. He has previously been on furosemide and he has been taken off of his furosemide as it was unnecessary. He has had a diagnosis of pulmonary fibrosis and pulmonary hypertension as well as lupus/sjogrens Review of Systems Constitutional: denies: Fever Eyes: denies: Decreased vision Ears: denies: Ear pain Nose: denies: Rhinorrhea / runny nose, Congestion Throat: denies: Sore throat Cardiac: denies: Chest pain / pressure, Palpitations Respiratory: reports: Dyspnea. denies: Cough, Wheezing GI: reports: Abdominal Swelling. denies: Abdominal Pain, Nausea, Vomiting : denies: Dysuria, Frequency Skin: denies: Rash Musculoskeletal: reports: Extremity swelling. denies: Neck pain, Back pain, Extremity pain Neurologic: reports: Generalized weakness. denies: Focal weakness, Numbness PD PAST MEDICAL HISTORY - Past Medical History Past Medical History: Yes Cardiovascular: Hypertension, Other Respiratory: Pneumonia, Shortness of breath, Other Neuro: None Endocrine/Autoimmune: Systemic lupus erythematosus GI: Hemorrhoids : Incontinence, Renal insuffiency, Frequency Psych: None Musculoskeletal: Osteoarthritis, Gout Derm: Herpes zoster, Psoriasis, Other Other Past Medical History: shingles - Past Surgical History Past Surgical History: Yes General: Colonoscopy, EGD HEENT: Tonsil/Adenoidectomy Derm: Skin cancer surgery - Present Medications Home Medications: Ambulatory Orders Medication Instructions Recorded Confirmed Prednisone 5 mg PO DAILY 06/07/18 09/04/18 Advil Pm 2 tab PO QPM PRN 07/03/18 09/04/18 Lidocaine 5% Topical Ointment 1 ea TOP .UP TO QID 07/03/18 09/04/18 Magnesium Tablet 2 tab PO DAILY PRN MDD Magnesium 07/03/18 09/04/18 malate 360mg Cannabidiol (Cbd) Extract 25 mg PO DAILY PRN 07/23/18 09/04/18 [Epidiolex] Honey [Manuka Honey] 250 mg PO DAILY 07/23/18 09/04/18 B Complex Supplement 3 cap PO DAILY PRN 08/20/18 09/04/18 Potassium Supplement 99mg 99 mg PO DAILY PRN 08/20/18 09/04/18 Aspirin [Adult Aspirin Regimen] 81 mg PO DAILY PRN 09/04/18 09/04/18 Gabapentin/Lidocaine Compound 1 ea TOP DAILY PRN 09/04/18 - Allergies Allergies/Adverse Reactions: Allergies Allergy/AdvReac Type Severity Reaction Status Date / Time Sulfa (Sulfonamide Allergy Emesis Verified 08/05/18 08:08 Antibiotics) - Social History Does the pt smoke?: Yes Smoking Status: Current every day smoker Does the pt drink ETOH?: No Does the pt have substance abuse?: No - Immunizations Immunizations are current?: Yes - POLST Patient has POLST: Yes PD ED PE NORMAL - Vitals Vital signs reviewed: Yes (hypotensive and hypoxic) - General General: Alert and oriented X 3, No acute distress, Well developed/nourished, Other (pale appearing ) - HEENT HEENT: Atraumatic, PERRL, EOMI - Neck Neck: Supple, no meningeal sign - Cardiac Cardiac: RRR, Other (2/6 holosystolic murmer at LSB) - Respiratory Respiratory: No respiratory distress, Other (diminished breath sounds with end insp crackles at the right base. (light sand paper)) - Abdomen Abdomen: Soft, Non tender, Other (The abdomen is distened firm and non-tender. ) - Back Back: No CVA TTP, No spinal TTP - Derm Derm: Normal color, Warm and dry, No rash - Extremities Extremities: No deformity, Other (There is trace edema bilaterally ) - Neuro Neuro: Alert and oriented X 3, sash maker 2-12 intact, No motor deficit, No sensory deficit, Normal speech Eye Opening: Spontaneous Motor: Obeys Commands Verbal: Oriented GCS Score: 15 - Psych Psych: Normal mood, Normal affect Results - Vitals Vitals: Vital Signs - 24 hr 11/26/18 11/26/18 11/26/18 10:20 12:17 12:26 Heart Rate 97 81 83 Respiratory 22 21 21 Rate Blood Pressure 108/56 L 138/93 H 138/87 H O2 Saturation 90 L 94 92 Oxygen O2 Source Nasal cannula Oxygen Flow Rate 3 - EKG (time done) 1346 Rate: Rate (enter#) (89) Rhythm: NSR [place]: LAD Ischemia: ST depression (minimal lateral ) Compare to prior EKG: Changed from prior EKG (SPT 06-24-[address] depression has developed. ) Computer interpretation: Agree with computer - Labs Labs: Laboratory Tests 11/26/18 11/26/18 11/26/18 11:25 11:25 11:25 WBC 8.8 RBC 4.14 L Hgb 11.4 L Hct 37.1 L MCV 89.6 MCH 27.5 MCHC 30.7 L RDW 16.2 H Plt Count 132 MPV 11.6 H Neut # (Auto) 6.2 Lymph # (Auto) 1.3 L Bennett # (Auto) 1.0 Eos # (Auto) 0.3 Baso # (Auto) 0.1 Absolute Nucleated RBC 0.02 Nucleated RBC % 0.2 Sodium 137 Potassium 4.7 Chloride 96 L Carbon Dioxide 29 Anion Gap 12.0 BUN 41 H Creatinine 2.0 H Estimated GFR (MDRD) 32 L Glucose 151 H Calcium 11.2 H Total Bilirubin 0.8 AST 44 H ALT 39 Alkaline Phosphatase 150 H Troponin I High Sens 39.4 H* B-Natriuretic Peptide Total Protein 6.8 Albumin 3.6 Globulin 3.2 Albumin/Globulin Ratio 1.1 Lipase 25 Urine Color Urine Clarity Urine pH Ur Specific Lambert Urine Protein Urine Glucose (UA) Urine Ketones Urine Occult Blood Urine Nitrite Urine Bilirubin Urine Urobilinogen Ur Leukocyte Esterase Ur Microscopic Review Urine Culture Comments 11/26/18 11/26/18 11/26/18 11:25 12:16 13:53 WBC RBC Hgb Hct MCV MCH MCHC RDW Plt Count MPV Neut # (Auto) Lymph # (Auto) Bennett # (Auto) Eos # (Auto) Baso # (Auto) Absolute Nucleated RBC Nucleated RBC % Sodium Potassium Chloride Carbon Dioxide Anion Gap BUN Creatinine Estimated GFR (MDRD) Glucose Calcium Total Bilirubin AST ALT Alkaline Phosphatase Troponin I High Sens 37.1 H* B-Natriuretic Peptide 769 H Total Protein Albumin Globulin Albumin/Globulin Ratio Lipase Urine Color YELLOW Urine Clarity CLEAR Urine pH 5.5 Ur Specific Lambert 1.025 Urine Protein NEGATIVE Urine Glucose (UA) NEGATIVE Urine Ketones NEGATIVE Urine Occult Blood NEGATIVE Urine Nitrite NEGATIVE Urine Bilirubin NEGATIVE Urine Urobilinogen 0.2 (NORMAL) Ur Leukocyte Esterase NEGATIVE Ur Microscopic Review NOT INDICATED Urine Culture Comments NOT INDICATED - Rads (name of study) chest 1 view Radiology: Prelim report reviewed (Impression: 1. Interval slight worsening mild perihilar opacity, perihilar bronchial cuffing bilaterally with new patchy opacity in the right lung base and small right pleural effusion, concerning for pulmonary edema, congestive heart failure; however, superimposed infiltrate or pneumonia in the right lung base cannot be excluded. 2. Borderline cardiomegaly without overt pulmonary edema.), EMP read indepedently, See rad report Procedures - IVC sono (time) 1040 Bedside IVC sono: IVC measures (cm) (2.77), High CVP, Fluid overload PD MEDICAL DECISION MAKING - ED course Complexity details: reviewed old records, reviewed results, re-evaluated patient, considered differential, d/w patient, d/w family, d/w senior treasury consultant (Hadjuduc will place in observation. ) ED course: 83-year-old male with a history of pulmonary fibrosis and lupus has retained fluid and he is more short of breath at rest than normal. He does have a plethoric IVC and he is administered Lasix 40 mg intravenously. His chest x-ray is concerning for infiltrate on the right side consistent with what is heard on exam. I reviewed x-ray reports of the patient from prior outside films and it appears that this area has cleared previously. My thought this was related to pulmonary fibrosis seems unlikely. The patient has acute kidney injury, fluid retention with congestive failure and infiltrate. He has mildly elevated troponin and BNP I believe hospitalization is currently indicated. Departure - Departure Disposition: ED Place in Observation Clinical Impression: VANESSA (acute kidney injury) Pneumonia Qualifiers: Pneumonia type: due to unspecified organism Laterality: right Lung location: lower lobe of lung Qualified Code(s): J18.1 - Lobar pneumonia, unspecified organism Congestive heart failure Qualifiers: Heart failure type: unspecified Heart failure chronicity: acute on chronic Qualified Code(s): I50.9 - Heart failure, unspecified
--- NOTE | 2018-11-26 11:22 | XRAY Report ---
Reason: chest pain Procedure Date: 11/26/2018 Accession Number: [id number] / [id number] Procedure: XR - Chest 1 View X-Ray CPT Code: 21022 FULL RESULT: EXAM: CHEST RADIOGRAPHY EXAM DATE: 11/26/2018 11:12 AM. CLINICAL HISTORY: Chest pain. COMPARISON: CHEST 1 VIEW 08/05/2018 8:21 AM. TECHNIQUE: 1 view. FINDINGS: Lungs/Pleura: The prior perihilar opacity, perihilar bronchial cuffing are slightly worsening bilaterally. New patchy right basilar opacity, new small right pleural effusion also noted. No pneumothorax. Mediastinum: Borderline cardiomegaly demonstrates no significant interval changes. Other: None. IMPRESSION: 1. Interval slight worsening mild perihilar opacity, perihilar bronchial cuffing bilaterally with new patchy opacity in the right lung base and small right pleural effusion, concerning for pulmonary edema, congestive heart failure; however, superimposed infiltrate or pneumonia in the right lung base cannot be excluded. 2. Borderline cardiomegaly without overt pulmonary edema. RADIA
[2018-11-26 11:48] LABS: BASOPHILS # (AUTO) 0.1 10^3/uL (0.0-0.1); BASOPHILS % (AUTO) 0.6 %; EOSINOPHILS # (AUTO) 0.3 10^3/uL (0.0-0.7); HGB - HEMOGLOBIN 11.4 g/dL (14.0-18.0); LYMPHOCYTES # (AUTO) 1.3 10^3/uL (1.5-3.5); LYMPHOCYTES % (AUTO) 14.4 %; MEAN CORPUSCULAR HEMOGLOBIN 27.5 pg (27.0-31.0); MEAN CORPUSCULAR HGB CONC 30.7 g/dL (32.0-36.0); MEAN CORPUSCULAR VOLUME 89.6 fL (80.0-94.0); MEAN PLATELET VOLUME 11.6 fL (7.4-11.4); MONOCYTES % (AUTO) 11.4 %; NEUTROPHILS # (AUTO) 6.2 10^3/uL (1.5-6.6); NEUTROPHILS % (AUTO) 69.9 %; PLT - PLATELET COUNT 132 10^3/uL (130-450); RED BLOOD COUNT 4.14 10^6/uL (4.70-6.10); RED CELL DISTRIBUTION WIDTH 16.2 % (12.0-15.0); WHITE BLOOD COUNT 8.8 x10^3/uL (4.8-10.8)
[2018-11-26 12:01] LABS: ALBUMIN 3.6 g/dL (3.2-5.5); ALBUMIN/GLOBULIN RATIO 1.1 (1.0-2.2); BILIRUBIN,TOTAL 0.8 mg/dL (0.2-1.0); CALCIUM 11.2 mg/dL (8.5-10.3); TOTAL PROTEIN 6.8 g/dL (6.7-8.2)
[2018-11-26 12:42] LABS: BILIRUBIN,URINE NEGATIVE (NEGATIVE); GLUCOSE, URINE (UA) NEGATIVE (NEGATIVE); KETONES,URINE (UA) NEGATIVE (NEGATIVE); LEUKOCYTE ESTERASE, URINE NEGATIVE (NEGATIVE); NITRITE,URINE NEGATIVE (NEGATIVE); OCCULT BLOOD,URINE NEGATIVE (NEGATIVE); PH,URINE 5.5 PH (5.0-7.5); PROTEIN,URINE NEGATIVE (NEGATIVE); UROBILINOGEN,URINE 0.2 (NORMAL) E.U./dL (NORMAL)
[2018-11-26 12:47] LABS: CLARITY,URINE CLEAR (CLEAR)
[2018-11-26] MEDS ORDERED: ZOLPIDEM 5 MG TABLET PO PRN (14:26)
[2018-11-26] MEDS ORDERED: SODIUM CHLORIDE FLUSH 0.9% 10 ML SYRINGE IVP PRN (14:26)
[2018-11-26] MEDS ORDERED: ACETAMINOPHEN 325 MG TABLET PO PRN (14:26)
[2018-11-26] MEDS ORDERED: ONDANSETRON 4 MG/2 ML VIAL IVP PRN (14:26)
--- NOTE | 2018-11-26 14:37 | HISTORY & PHYSICAL EXAMINATION ---
Chief Complaint - Chief Complaint Chief Complaint: SOB History of Present Illness - History of Present Illness HPI Comment/Other: Mr. Dickerson is a 83-yrs-old male with a PMH significant for systemic lupus erythematosus, pulmonary hypertension, pulmonary fibrosis, CHF, HTN, Sjogren syndrome, TIA, Thrombocytopenia and anemia, right hip avascular necrosis, CKD, urinary incontinency and frequency, Osteoarthritis, Gout, who present ER complain of shortness of breath, abdominal bloating for three days. Pt report He has previously been on furosemide. he has been taken off his furosemide as it was unnecessary over one month ago when he was at [facility] for his pulmonary problem. Now he report he felt he is "full of fluid and puff in my stomach." pt also report he has taken Prednisone for quite long time. The dosage from previous 20 mg daily is down to 5 mg daily now. He denies chest pain, fever, chill, cough, headache, vision change, abdominal pain, nausea or vomiting, dysuria or hematuria. He report he has chronic diarrhea but without acute changing. Lat test in ER found elevated BNP to 769, elevated creatinine to 2, slightly elevated high sensitive troponin test in twice around 39 without EKG indicated acute ST variation. CXR reveals new patchy opacity with right lung base and small right pleural effusion but superimposed infiltrate or pneumonia in the right lung base can not be excluded. pt was admitted in observation for above medical reason. History - Past Medical History Cardiovascular: reports: Hypertension, Other Respiratory: reports: Pneumonia, Shortness of breath, Other Neuro: reports: None Endocrine/Autoimmune: reports: Systemic lupus erythematosus GI: reports: Hemorrhoids : reports: Incontinence, Renal insuffiency, Frequency Psych: reports: None Musculoskeletal: reports: Osteoarthritis, Gout Derm: reports: Herpes zoster, Psoriasis, Other MRSA Hx?: No Other Past Medical History: shingles - Past Surgical History General: reports: Colonoscopy, EGD HEENT: reports: Tonsil/Adenoidectomy Derm: reports: Skin cancer surgery - Family & Social History Family History Comment/Other: pt repor he moved from [place] and living with his in [facility]. 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 pt has three children Social History Notes: pt denies hx of cigarette smoker, alcohol abuse or drug problem. - Substance History Use: Uses substance without health or social issues: Alcohol - POLST Patient has POLST: Yes POLST Status: DNR Meds/Allgy - Home Medications Home Medications: Ambulatory Orders Medication Instructions Recorded Confirmed Prednisone 5 mg PO DAILY 06/07/18 11/26/18 Cannabidiol (Cbd) Extract 25 mg PO BID PRN 07/23/18 11/26/18 [Epidiolex] Honey [Manuka Honey] 15 ml PO DAILY 07/23/18 11/26/18 Aspirin [Adult Aspirin Regimen] 81 mg PO DAILY 09/04/18 11/26/18 Gabapentin/Lidocaine Compound 1 ea TOP DAILY PRN 09/04/18 11/26/18 Acetaminophen/Diphenhydramine [Sm 1 each PO QPM PRN 11/26/18 11/26/18 Pain Reliever Pm Caplet] Cavilon Cream 1 applic TOP PRN PRN 11/26/18 11/26/18 Magnesium Malate 360 mg PO BID 11/26/18 11/26/18 Psyllium [Metamucil] 1 each PO DAILY 11/26/18 11/26/18 Vitamin B Complex/Folic Acid 1.2 mg PO DAILY 11/26/18 11/26/18 [B-Complex Tablet] - Allergies Allergies/Adverse Reactions: Allergies Allergy/AdvReac Type Severity Reaction Status Date / Time Sulfa (Sulfonamide Allergy Emesis Verified 08/05/18 08:08 Antibiotics) Review of Systems - Constitutional Constitutional: denies: Fatigue, Fever, Chills, Malaise, Weakness, Poor appetite, Diaphoresis, Night sweats, Weight gain, Weight loss - Eyes Eyes: denies: Pain, Irritation, Amaurosis, Blurred vision, Spots in vision, Field loss, Vision loss, Dipolpia - Ears, Nose & Throat Ears, Nose & Throat: denies: Ear pain, Hearing loss, Hearing aids, Vertigo, Nasal pain, Nasal discharge, Nosebleeds, Nasal obstruction, Nasal congestion, Postnasal drainage, Dentures, Sore throat, Mouth lesions, Bleeding gums - Cardiovascular Cariovascular: denies: Irregular heart rate, Palpitations, Chest pain, Edema, Lightheadedness, Syncope, Exertional dyspnea, Decr. exercise tolerance - Respiratory Respiratory: reports: SOB with exertion. denies: Cough, Sputum production, Wheezing, Snoring, Hemoptysis, Orthopnea, SOB at rest - Gastrointestinal Gastrointestinal: denies: Abdominal pain, Abdominal distention, Constipation, Diarrhea, Change in bowel habits, Rectal bleeding, Black stools, Bloody stools, Nausea, Vomiting, Bile emesis, Darion blood emesis, Coffee grounds emesis, Reflux/heartburn - Genitourinary Genitourinary: reports: Frequency, Incontinence. denies: Dysuria, Urgency, Hematuria, Flank pain, Nocturia, Urethral discharge - Musculoskeletal Musculoskeletal: reports: Gout. denies: Muscle pain, Back pain, Muscle aches, Stiffness, Limited range of motion, Muscle weakness, Joint pain - Integumentary Integumentary: denies: Rash, Pruritis, Lesions, Dryness, Lumps, Acne, Pigment changes, Nail changes - Neurological Neurological: denies: General weakness, Focal weakness, Headache, Dizziness, Numbness, Memory problems, Pre-existing deficit, Abnormal gait, Seizures, Incoordination, Slurred speech - Psychiatric Psychiatric: denies: Depression, Anxiety, Suicidal, Delusions, Hallucinations, Homicidal - Endocrine Endocrine: denies: Polyuria, Polydypsia, Polyphagia, Intolerance to cold - Hematologic/Lymphatic Hematologic/Lymphatic: denies: Anemia, Bruising, Petechiae, Blood clots, Lymphadenopathy, Bleeding tendencies Exam - Vital Signs Reviewed Vital Signs: Yes Vital Signs: Vital Signs x48h Pulse Resp BP Pulse Ox 11/26/18 12:26 83 21 138/87 H 92 11/26/18 12:17 81 21 138/93 H 94 11/26/18 10:20 97 22 108/56 L 90 L - Physical Exam General Appearance: positive: No acute distress, Alert. negative: Lethargic Eyes Bilateral: positive: Normal inspection, PERRL, No lid inflammation, Conjunctivae nml ENT: positive: ENT inspection nml, Pharynx nml, No signs of dehydration. negative: Purulent nasal drainage, Pharyngeal erythema, Oral lesions Neck: positive: Nml inspection, Thyroid nml, No JVD, Trachea midline. negative: Thyromegaly, Lymphadenopathy (R), Lymphadenopathy (L), Stiff neck, Swelling/bruising, Tracheal deviation Respiratory: positive: Chest non-tender, No respiratory distress. negative: Wheezes, Rales, Rhonchi Cardiovascular: positive: Regular rate & rhythm, No murmur, No gallop. negative: Irregularly irregular, Extrasystoles, Tachycardia, Bradycardia, JVD present, Systolic murmur, Diastolic murmur Peripheral Pulses: positive: 2+ Abdomen: positive: Non-tender, No organomegaly, Nml bowel sounds, No distention. negative: Tenderness, Guarding, Rebound Back: positive: Nml inspection. negative: CVA tenderness (R), CVA tenderness (L) Skin: positive: Color nml, No rash, Warm, Dry. negative: Cyanosis, Diaphoresis, Pallor Extremities: positive: Non-tender, Nml appearance. negative: Calf tenderness, Priscila's sign/cords Neurologic/Psychiatric: positive: Oriented x3, Sensation nml, Mood/affect nml. negative: Weakness, Sensory loss, Facial droop, Slurred/abnml speech, Depressed mood/affect Sepsis Event Note (H) - Evaluation Current Stage of Sepsis: Ruled out Conclusion/Plan - Problem List (1) CHF exacerbation Conclusion/Plan: pt has hx of CHF, but in [facility] pt has no ECHO study. pt has elevated BNP over 700, CXR found concerning of pulmonary edema and CHF. pt took Lasix before but pt did not take more Lasix now. Start with IV of Lasix, daily lab monitor fluid restriction, daily weight order ECHO (2) Shortness of breath Conclusion/Plan: it is liked combination of hx of pulmonary HTN, pulmonary fibrosis, and acute CHF. pt did not present cough, nasal congestion, acute infection. if not improved, may consideration of CTA or V/Q scan to r/o PE continue Lasix supplement of O2 as needed (3) Hx of pulmonary hypertension Conclusion/Plan: unknown how severe pulmonary HTN, will order ECHO and followup (4) Hx of pulmonary fibrosis Conclusion/Plan: hx of pulmonary fibrosis, pt present SOB, will consider CT of chest if symptoms is not improved continue supplement of O2 as needed (5) Hx of systemic lupus erythematosus (SLE) Conclusion/Plan: pt has hx of [employer]ER[employer]TING [employer]ACH[employer] for over decades. pt took 5mg Prednisone, hold now for acute CHF closely monitor pt, prevention of developing flare. (6) AVN (avascular necrosis of bone) Conclusion/Plan: pt report hx of AVN on the right hip, it is chronic, no acute complaints. pain control. (8) CKD (chronic kidney disease) stage 3, GFR 30-59 ml/min Conclusion/Plan: pt has elevated creatinine but pt has over-loaded fluid. now start on Lasix, closely monitor if pt develop cardiaorenal syndrome daily lab and tele, vital monitor (9) Elevated troponin Conclusion/Plan: pt denies chest pain. Troponin is stable and slight elevated, EKG did not reveals acute ST variation. it is likely caused by elevated creatinine, atypical elevated troponin. continue third troponin test tele and vital monitor continue home Aspirin (10) Do not intubate, cardiopulmonary resuscitation (CPR)-only code status Conclusion/Plan: pt request DNR clearly - Lab Results Fish Bones: 11/26/18 11:25 11/26/18 11:25 Core Measures - Anticipated LOS I expect patient to be DC'd or transferred within 96 hours.: Yes - DVT/VTE - Prophylaxis VTE/DVT Device ordered at admit?: Yes VTE/DVT Prophylaxis med ordered at admit?: Yes
[2018-11-26] MEDS ORDERED: [UNRECOGNIZED DRUG - OTHER] TOP PRN (16:49)
[2018-11-26] MEDS ORDERED: LIDOCAINE TOP PRN (16:49)
[2018-11-26] MEDS ORDERED: GABAPENTIN TOP PRN (16:49)
[2018-11-26] MEDS: SODIUM CHLORIDE FLUSH 0.9% 10 ML SYRINGE IVP SCH ×2 (18:08→23:37)
[2018-11-26] MEDS: ASPIRIN CHEW 81 MG TABLET PO SCH (18:08)
[2018-11-26] MEDS: HEPARIN 5,000 UNIT/ML VIAL SUBQ SCH (21:51)
[2018-11-26] MEDS: FAMOTIDINE 20 MG TABLET PO SCH (21:52)
[2018-11-27 05:51] LABS: BASOPHILS % (AUTO) 0.5 %; EOSINOPHILS # (AUTO) 0.3 10^3/uL (0.0-0.7); EOSINOPHILS % (AUTO) 2.9 %; HGB - HEMOGLOBIN 11.5 g/dL (14.0-18.0); LYMPHOCYTES # (AUTO) 1.7 10^3/uL (1.5-3.5); LYMPHOCYTES % (AUTO) 19.9 %; MEAN CORPUSCULAR HEMOGLOBIN 27.1 pg (27.0-31.0); MEAN CORPUSCULAR VOLUME 87.3 fL (80.0-94.0); MEAN PLATELET VOLUME 10.1 fL (7.4-11.4); MONOCYTES # (AUTO) 0.7 10^3/uL (0.0-1.0); MONOCYTES % (AUTO) 8.6 %; NEUTROPHILS # (AUTO) 5.8 10^3/uL (1.5-6.6); NEUTROPHILS % (AUTO) 67.5 %; PLT - PLATELET COUNT 124 10^3/uL (130-450); RED BLOOD COUNT 4.25 10^6/uL (4.70-6.10); RED CELL DISTRIBUTION WIDTH 16.2 % (12.0-15.0); WHITE BLOOD COUNT 8.6 x10^3/uL (4.8-10.8)
[2018-11-27] MEDS ORDERED: FUROSEMIDE 40 MG/4 ML VIAL IVP SCH (06:00)
[2018-11-27 06:05] LABS: ALBUMIN 3.5 g/dL (3.2-5.5); ALBUMIN/GLOBULIN RATIO 1.1 (1.0-2.2); CALCIUM 10.6 mg/dL (8.5-10.3); CREATININE 1.8 mg/dL (0.6-1.2); MAGNESIUM 1.8 mg/dL (1.7-2.8); PHOSPHORUS 4.2 mg/dL (2.5-4.6); TOTAL PROTEIN 6.7 g/dL (6.7-8.2)
[2018-11-27] MEDS: FAMOTIDINE 20 MG TABLET PO SCH (08:13)
[2018-11-27] MEDS: ASPIRIN CHEW 81 MG TABLET PO SCH (08:14)
[2018-11-27] MEDS: HEPARIN 5,000 UNIT/ML VIAL SUBQ SCH (08:19)
[2018-11-27] MEDS: SODIUM CHLORIDE FLUSH 0.9% 10 ML SYRINGE IVP SCH (08:19)
[2018-11-27 08:45] VITALS: BP 94/69
[2018-11-27] MEDS ORDERED: B COMPLEX PO SCH (09:00)
[2018-11-27] MEDS ORDERED: PSYLLIUM PACKET PO SCH (09:00)
[2018-11-27] MEDS ORDERED: ASPIRIN CHEW 81 MG TABLET PO SCH (09:00)
[2018-11-27] MEDS ORDERED: POLYETHYLENE GLYCOL 3350 17 GM PACKET PO SCH (09:00)
[2018-11-27] MEDS ORDERED: MAGNESIUM OXIDE 400 MG TABLET PO SCH (11:00)
--- NOTE | 2018-11-27 11:51 | Discharge Plan ---
Discharge Plan Problem Reviewed?: Yes Disposition: Home, Self Care Condition: Good Prescriptions: Furosemide 10 mg PO DAILY #30 tablet Magnesium Oxide [Mag Ox] 400 mg PO DAILYWM #30 tablet Spironolactone 25 mg PO DAILY #30 tablet Diet: Regular Activity Restrictions: Activity as Tolerated Shower Restrictions: No Weight Bearing: Full Weight Health Concerns: Fluid overload Acute kidney injury Patent foramen ovale Pulmonary hypertension (Cor Pulmonale) Plan of Treatment: Start Spironolactone, STOP potassium Cut lasix in half No other medication changes Care Goals: Prevent hospital stays Continue to prevent fluid overload with your medications Assessment: You are medically stable to return home on your usual amount of oxygen To prevent fluid overload of your heart, keep taking the diuretics (lasix/spironolactone) I hope your sleepiness improves as we treat your pulmonary hypertension I have sent Magnesium oxide to the pharmacy, which may be taken instead of your other magnesium, which may also help with your sleepiness No Smoking: If you smoke, Please STOP! Call for help. Follow-up with: Fausto Arellano MD [Primary Care Provider] -
--- NOTE | 2018-11-27 13:12 | DISCHARGE SUMMARY ---
Discharge Summary Admit Date: 11/26/18 Discharge Date: 11/27/18 Discharging Provider: HENRY Staley Primary Care Provider: Fausto Arellano Code Status: Do Not Attempt Resuscitation Condition at Discharge: Good Discharge Disposition: 01 Home, Self Care - DIAGNOSES Admission Diagnoses: CHF exacerbation Shortness of breath Hx of pulmonary hypertension Hx of pulmonary fibrosis Hx of systemic lupus erythematosus (SLE) Avascular necrosis of bone CKD (chronic kidney disease) stage 3, GFR 30-59 ml/min Elevated troponin Discharge Diagnoses with Status of Each Condition: Acute on chronic CHF with left ventricular diastolic dysfunction- improved, patient started on Spironolactone & lasix to continue at home to prevent exacerbation Acute respiratory failure- Chronic oxygen, continued on home dose, stable Cor Pulmonale- Informed patient of this diagnosis, continues on diuretics at home, underlying pulmonary fibrosis as a contributing factor Supplemental oxygen dependent- Chronic, stable, no changes in flow upon discharge Hx of pulmonary fibrosis- Chronic, stable Hx of systemic lupus erythematosus (SLE)- Chronic, stable Avascular necrosis of bone- Causes hip pain, stable CKD (chronic kidney disease) stage 3, GFR 30-59 ml/min- Chronic, stable Elevated troponin- remained flat, stable, no chest pain History of TIA- Chronic, stable Patent foramen ovale- New on this admission, follow up with Cardiology to evaluate for possible intervention Fatigue- Chronic, patient encouraged to take medications as prescribed, especially diuretics which may improve his overall energy - HPI History of Present Illness: Mike Dickerson is a 83-year old male with a past medical history of systemic lupus erythematosus, pulmonary hypertension, pulmonary fibrosis, CHF, HTN, Sjogren syndrome, TIA, Thrombocytopenia, anemia, right hip avascular necrosis, CKD, urinary incontinency, urinary frequency, osteoarthritis, & gout. The patient presented to the ED with complaints of shortness of breath and abdominal bloating which was described as feeling as if he had more fluid and puffiness in his abdomen, which began about 3-days ago. The patient reported that he was previously on furosemide for his pulmonary hypertension which he was supposed to take if his ankles become swollen, which was not the case. Over one month ago when he was at [facility] for his pulmonary problem, he had still not needed the furosemide. The patient reported that he has been taking Prednisone for quite long time, but recently the dosage was reduced from 20 mg daily down to 5 mg daily. He denies chest pain, fevers, chills, a new cough, headaches, vision changes, abdominal pain, nausea, vomiting, dysuria or hematuria. He admits to baseline chronic diarrhea that remains unchanged. Lab testing in ED showed an el evated BNP at 769, elevated creatinine at 2, slightly elevated high sensitivity troponin x2, at 39 without EKG changes or acute ST elevation. CXR showed a new patchy opacity with right lung base and small right pleural effusion but superimposed infiltrate or pneumonia in the right lung base can not be excluded. The patient was admitted for CHF exacerbation in which IV lasix was prescribed. - HOSPITAL COURSE Hospital Course: The patient was started on moderate dose IV lasix of 40mg BID, which was transitioned to 1/2 his oral dose previously and with the addition of Spironolactone to continue at home. He had a known history of CHF. An echocardiogram was completed showing preliminary results of Grade II diastolic dysfunction, severe RV enlargement, severe RA enlargement, severe increase in the LA volume index, moderate mitral regurg, an RVSP at rest of 91 mmHg, and a new patent foramen ovale. Labs showed an elevated BNP over 700, which improved to the 300 range prior to discharge. A chest x-ray showed pulmonary edema. The patient's presenting symptom of shortness of breath was likely directly related to his fluid overload status which resolved upon discharge. The patient had VANESSA which improved as diuretics were initiated and was most likely due to under- perfusion, cardiaorenal in nature. The patient was informed on his elevated cardiac enzymes and this was also related to his exacerbation as the levels remained flat and the patient suffered no chest pain, no wall motion abnormalities were noted on preliminary echo. The patient was medically stable and on his usual home oxygen amounts via nasal cannula. He was discharged home with his , Ifrah and prescriptions were sent to the pharmacy. - ALLERGIES Allergies/Adverse Reactions: Allergies Allergy/AdvReac Type Severity Reaction Status Date / Time Sulfa (Sulfonamide Allergy Emesis Verified 08/05/18 08:08 Antibiotics) - MEDICATIONS Home Medications: Ambulatory Orders Medication Instructions Recorded Confirmed Prednisone 5 mg PO DAILY 06/07/18 11/26/18 Cannabidiol (Cbd) Extract 25 mg PO BID PRN 07/23/18 11/26/18 [Epidiolex] Honey [Manuka Honey] 15 ml PO DAILY 07/23/18 11/26/18 Aspirin [Adult Aspirin Regimen] 81 mg PO DAILY 09/04/18 11/26/18 Gabapentin/Lidocaine Compound 1 ea TOP DAILY PRN 09/04/18 11/26/18 Acetaminophen/Diphenhydramine [Sm 1 each PO QPM PRN 11/26/18 11/26/18 Pain Reliever Pm Caplet] Cavilon Cream 1 applic TOP PRN PRN 11/26/18 11/26/18 Magnesium Malate 360 mg PO BID 11/26/18 11/26/18 Psyllium [Metamucil] 1 each PO DAILY 11/26/18 11/26/18 Vitamin B Complex/Folic Acid 1.2 mg PO DAILY 11/26/18 11/26/18 [B-Complex Tablet] Furosemide 10 mg PO DAILY #30 tablet 11/27/18 Magnesium Oxide [Mag Ox] 400 mg PO DAILYWM #30 tablet 11/27/18 Spironolactone 25 mg PO DAILY #30 tablet 11/27/18 - PHYSICAL EXAM AT DISCHARGE General Appearance: positive: No acute distress, Alert Eyes Bilateral: positive: PERRL ENT: positive: Pharynx nml, No signs of dehydration Neck: positive: Thyroid nml, No JVD, Trachea midline Respiratory: positive: Chest non-tender, No respiratory distress, Breath sounds nml Cardiovascular: positive: No gallop, Irregularly irregular, Systolic murmur, Diastolic murmur, Decreased pulse(s) Peripheral Pulses: positive: 1+ Abdomen: positive: Non-tender, Nml bowel sounds, Hepatomegaly, Other (rounded, soft) Back: positive: Nml inspection Skin: positive: No rash, Warm, Dry, Other (ashen toned) Extremities: positive: Non-tender, Full ROM, Nml appearance, No pedal edema Neurologic/Psychiatric: positive: Oriented x3, CN's nml (2-12), Motor nml, Sensation nml, Weakness, Depressed mood/affect Reflexes: Bicep (R): 2+, Bicep (L): 2+ - LABS Result Diagrams: 11/27/18 05:42 11/27/18 05:42 - DIAGNOSTIC IMAGING Diagnostic Imaging Results: Final report reviewed Diagnostic Imaging Results Comments: EXAM: CHEST RADIOGRAPHY EXAM DATE: 11/26/2018 11:12 AM IMPRESSION: 1. Interval slight worsening mild perihilar opacity, perihilar bronchial cuffing bilaterally with new patchy opacity in the right lung base and small right pleural effusion, concerning for pulmonary edema, congestive heart failure; however, superimposed infiltrate or pneumonia in the right lung base cannot be excluded. 2. Borderline cardiomegaly without overt pulmonary edema. Echocardiogram 11/27/2018: Preliminary results- preliminary results of Grade II diastolic dysfunction, severe RV enlargement, severe RA enlargement, severe increase in the LA volume index, moderate mitral regurg, an RVSP at rest of 91 mmHg, and a new patent foramen ovale. - SEPSIS Current Stage of Sepsis: Ruled out - FOLLOW UP Follow Up: Disposition: Home Prescriptions: Furosemide 10 mg PO DAILY #30 tablet, Magnesium Oxide [Mag Ox] 400 mg PO DAILYWM #30 tablet, Spironolactone 25 mg PO DAILY #30 tablet Health Concerns: Fluid overload Acute kidney injury Patent foramen ovale Pulmonary hypertension (Cor Pulmonale) Plan of Treatment: Start Spironolactone, STOP potassium Cut lasix in half No other medication changes Care Goals: Prevent hospital stays, Continue to prevent fluid overload with your medications Assessment: You are medically stable to return home on your usual amount of oxygen To prevent fluid overload of your heart, keep taking the diuretics (lasix/spironolactone) I hope your sleepiness improves as we treat your pulmonary hypertension I have sent Magnesium oxide to the pharmacy, which may be taken instead of your other magnesium, which may also help with your sleepiness - TIME SPENT Time Spent in Discharge (Minutes): 55
== END 2018-11-27 12:35 | disposition home or self-care (01) ==
LOC: ED 10:16 → MS2 14:26
PROVIDERS: ADMIT Nurse Practitioner Gerontology; ATTEND Nurse Practitioner
DX: I13.0 Hypertensive heart and chronic kidney disease with heart failure and stage 1 through stage 4 chronic kidney disease, or unspecified chronic kidney disease (principal); I50.33 Acute on chronic diastolic (congestive) heart failure; N18.3 Chronic kidney disease, stage 3 (moderate); J96.00 Acute respiratory failure, unspecified whether with hypoxia or hypercapnia; I27.81 Cor pulmonale (chronic); J84.10 Pulmonary fibrosis, unspecified; L93.0 Discoid lupus erythematosus; M87.9 Osteonecrosis, unspecified; R79.89 Other specified abnormal findings of blood chemistry; Z86.73 Personal history of transient ischemic attack (TIA), and cerebral infarction without residual deficits; Q21.1 Atrial septal defect; R53.82 Chronic fatigue, unspecified; J90 Pleural effusion, not elsewhere classified; R91.8 Other nonspecific abnormal finding of lung field; N17.9 Acute kidney failure, unspecified; Z99.81 Dependence on supplemental oxygen; Z66 Do not resuscitate; I27.29 Other secondary pulmonary hypertension; K52.9 Noninfective gastroenteritis and colitis, unspecified; I34.0 Nonrheumatic mitral (valve) insufficiency
CPT/HCPCS: 36415; 71045; 80053; 81003; 83690; 83735; 83880; 84100; 84484; 85025; 93005; 93306; 96372; 96374; 96376; 99285; A9270; G0378; 81001; 87086

== ENCOUNTER 2018-12-13 08:11 | Outpatient (CLI) | payer MEDICARE, OTHER | END 2018-12-13 08:12 | disposition critical access hospital (66) | LOC: EMS 08:11 | PROVIDERS: ATTEND Surgery | DX: R07.9 Chest pain, unspecified (principal) | CPT/HCPCS: A0425; A0427 ==

== ENCOUNTER 2018-12-13 08:49 | Emergency (ER) | payer MEDICARE, OTHER ==
[2018-12-13] MEDS ORDERED: FUROSEMIDE 40 MG/4 ML VIAL IVP STA (08:59)
--- NOTE | 2018-12-13 09:09 | ED Physician Documentation ---
PD HPI CHEST PAIN - Stated complaint Stated Complaint: CHEST PAIN, HYPERTENSION - Chief complaint Chief Complaint: Cardiac - History obtained from History obtained from: Patient - History of Present Illness Timing - onset: Today Timing - onset during: Rest Timing - duration: Minutes Timing - details: Abrupt onset, Still present Pain level max: 6 Pain level now: 6 Quality: Pressure, Sharp Location: Substernal Radiation: No: Jaw, Neck, Back, Abdominal, Left upper extremity, Right upper extremity Improved by: Rest Worsened by: Exertion Associated symptoms: Shortness of air, Diaphoresis Similar symptoms before: Diagnosis (CHF) Recently seen: Emergency Dept, Admitted - Additional information Additional information: 83-year-old male with a history of pulmonary fibrosis and pulmonary hypertension has had an issue with congestive heart failure and was admitted to the hospital last month. Today he is come in with chief complaints of chest pain. He states that he has not had this pain previously is in the center of his chest and r adiated across the chest. He denies any abnormal shortness of breath associated with this and he denied diaphoresis or nausea. He does take Aleve PM and he drinks alcohol nightly. Review of Systems Constitutional: denies: Fever Eyes: denies: Decreased vision Ears: denies: Ear pain Nose: denies: Congestion Throat: denies: Sore throat Cardiac: reports: Chest pain / pressure. denies: Palpitations, Pedal edema, Calf pain Respiratory: reports: Dyspnea. denies: Cough, Wheezing GI: denies: Abdominal Pain, Nausea, Vomiting PD PAST MEDICAL HISTORY - Past Medical History Cardiovascular: Hypertension, Other Respiratory: Pneumonia, Shortness of breath, Other Neuro: None Endocrine/Autoimmune: Systemic lupus erythematosus GI: Hemorrhoids : Incontinence, Renal insuffiency, Frequency Psych: None Musculoskeletal: Osteoarthritis, Gout Derm: Herpes zoster, Psoriasis, Other - Past Surgical History Past Surgical History: Yes General: Colonoscopy, EGD HEENT: Tonsil/Adenoidectomy Derm: Skin cancer surgery - Present Medications Home Medications: Ambulatory Orders Medication Instructions Recorded Confirmed Prednisone 5 mg PO DAILY 06/07/18 11/26/18 Cannabidiol (Cbd) Extract 25 mg PO BID PRN 07/23/18 11/26/18 [Epidiolex] Honey [Manuka Honey] 15 ml PO DAILY 07/23/18 11/26/18 Aspirin [Adult Aspirin Regimen] 81 mg PO DAILY 09/04/18 11/26/18 Gabapentin/Lidocaine Compound 1 ea TOP DAILY PRN 09/04/18 11/26/18 Acetaminophen/Diphenhydramine [Sm 1 each PO QPM PRN 11/26/18 11/26/18 Pain Reliever Pm Caplet] Cavilon Cream 1 applic TOP PRN PRN 11/26/18 11/26/18 Magnesium Malate 360 mg PO BID 11/26/18 11/26/18 Psyllium [Metamucil] 1 each PO DAILY 11/26/18 11/26/18 Vitamin B Complex/Folic Acid 1.2 mg PO DAILY 11/26/18 11/26/18 [B-Complex Tablet] Furosemide 10 mg PO DAILY #30 tablet 11/27/18 Magnesium Oxide [Mag Ox] 400 mg PO DAILYWM #30 tablet 11/27/18 Spironolactone 25 mg PO DAILY #30 tablet 11/27/18 - Allergies Allergies/Adverse Reactions: Allergies Allergy/AdvReac Type Severity Reaction Status Date / Time Sulfa (Sulfonamide Allergy Emesis Verified 12/13/18 08:51 Antibiotics) - Social History Does the pt smoke?: Yes Smoking Status: Never smoker Does the pt drink ETOH?: No Does the pt have substance abuse?: No - Immunizations Immunizations are current?: Yes - POLST Patient has POLST: Yes POLST Status: DNR PD ED PE NORMAL - Vitals Vital signs reviewed: Yes (hypoxia ) - General General: Alert and oriented X 3, No acute distress, Well developed/nourished - HEENT HEENT: Atraumatic, PERRL, EOMI - Neck Neck: Supple, no meningeal sign - Cardiac Cardiac: RRR, No murmur - Respiratory Respiratory: No respiratory distress, Other (fine crackles at the right base. ) - Abdomen Abdomen: Soft, Non tender - Back Back: No CVA TTP, No spinal TTP - Derm Derm: Normal color, Warm and dry, No rash - Extremities Extremities: No deformity, No edema - Neuro Neuro: Alert and oriented X 3, otm consultant 2-12 intact, No motor deficit, No sensory deficit, Normal speech Eye Opening: Spontaneous Motor: Obeys Commands Verbal: Oriented GCS Score: 15 - Psych Psych: Normal mood, Normal affect Results - Vitals Vitals: Vital Signs - 24 hr 12/13/18 12/13/18 12/13/18 08:51 09:01 10:01 Temperature 37.0 C Heart Rate 96 88 88 Respiratory 20 21 Rate Blood Pressure 105/68 118/80 O2 Saturation 68 L 85 L 100 12/13/18 12/13/18 12/13/18 10:30 11:00 11:30 Temperature Heart Rate 93 113 H 90 Respiratory 22 16 20 Rate Blood Pressure 106/70 88/69 L 99/56 L O2 Saturation 92 91 L 100 12/13/18 12/13/18 12/13/18 12:00 12:30 13:00 Temperature Heart Rate 93 91 91 Respiratory 26 H 22 17 Rate Blood Pressure 98/62 86/50 L 103/67 O2 Saturation 95 97 85 L 12/13/18 12/13/18 13:30 14:00 Temperature Heart Rate 101 H 99 Respiratory 24 20 Rate Blood Pressure 123/79 126/78 O2 Saturation 97 96 Oxygen O2 Source Nasal cannula - EKG (time done) 0858 Rate: Rate (enter#) (90) Rhythm: NSR [place]: LAD Compare to prior EKG: Changed from prior EKG (SPT 11-26-[address] depression has resolved. ) Computer interpretation: Agree with computer - Labs Labs: Laboratory Tests 12/13/18 12/13/18 12/13/18 09:25 09:25 09:25 WBC 10.1 RBC 4.65 L Hgb 11.6 L Hct 38.4 L MCV 82.6 MCH 24.9 L MCHC 30.2 L RDW 17.2 H Plt Count 121 L MPV 9.6 Neut # (Auto) 8.2 H Lymph # (Auto) 0.6 L [place] # (Auto) 1.0 Eos # (Auto) 0.2 Baso # (Auto) 0.0 Absolute Nucleated RBC 0.00 Nucleated RBC % 0.0 Sodium 134 L Potassium 4.4 Chloride 95 L Carbon Dioxide 29 Anion Gap 10.0 BUN 27 H Creatinine 1.6 H Estimated GFR (MDRD) 41 L Glucose 100 Calcium 9.5 Total Bilirubin 1.4 H AST 23 ALT 18 Alkaline Phosphatase 96 Troponin I High Sens 40.9 H* B-Natriuretic Peptide Total Protein 6.7 Albumin 3.8 Globulin 2.9 Albumin/Globulin Ratio 1.3 Lipase 26 Urine Color Urine Clarity Urine pH Ur Specific [place] Urine Protein Urine Glucose (UA) Urine Ketones Urine Occult Blood Urine Nitrite Urine Bilirubin Urine Urobilinogen Ur Leukocyte Esterase Ur Microscopic Review Urine Culture Comments 12/13/18 12/13/18 12/13/18 09:25 10:12 12:35 WBC RBC Hgb Hct MCV MCH MCHC RDW Plt Count MPV Neut # (Auto) Lymph # (Auto) [place] # (Auto) Eos # (Auto) Baso # (Auto) Absolute Nucleated RBC Nucleated RBC % Sodium Potassium Chloride Carbon Dioxide Anion Gap BUN Creatinine Estimated GFR (MDRD) Glucose Calcium Total Bilirubin AST ALT Alkaline Phosphatase Troponin I High Sens 39.0 H* B-Natriuretic Peptide 707 H Total Protein Albumin Globulin Albumin/Globulin Ratio Lipase Urine Color YELLOW Urine Clarity CLEAR Urine pH 7.0 Ur Specific [place] 1.010 Urine Protein NEGATIVE Urine Glucose (UA) NEGATIVE Urine Ketones NEGATIVE Urine Occult Blood NEGATIVE Urine Nitrite NEGATIVE Urine Bilirubin NEGATIVE Urine Urobilinogen 0.2 (NORMAL) Ur Leukocyte Esterase NEGATIVE Ur Microscopic Review NOT INDICATED Urine Culture Comments NOT INDICATED - Rads (name of study) chest Radiology: Prelim report reviewed (Impression: Irregular opacities in the right lung base with diffuse increased interstitial markings, similar to prior examination.), EMP read indepedently, See rad report Procedures - IVC sono (time) 0900 Bedside IVC sono: IVC measures (cm) (2.4), IVC collapsed c insp (cm) (2.4), High CVP, Fluid overload PD MEDICAL DECISION MAKING - ED course Complexity details: reviewed old records, reviewed results, re-evaluated patient, considered differential, d/w patient, d/w family ED course: 83-year-old male with a history of pulmonary fibrosis and pulmonary hypertension developed congestive heart failure when he was taken off of his furosemide earlier in the month and he was hospitalized and put back on the furosemide and he stabilized. He has been in to see his formal waiter/waitress in follow-up and was given a 4-month return visit appointment. This morning the patient has pain in his chest that he awoke with it is persisted but he has not had chest pain previously and he is come to the emergency department. We evaluated the patient adn he appeared to have a nondiagnostic electrocardiogram improved from his most recent and his volume status was mildly elevated, he was given Lasix 40 mg intravenously. His chest x-ray did not demonstrate obvious failure. BNP and troponin were mildly elevated consistent with where he has had previously. The patient continued to have chest pain and he was subsequently given viscous lidocaine and Mylanta with improvement in his pain. He was given a second dose with further improvement and then subsequently given Pepcid intravenously. I suspect his chest pain is related to his esophagus or stomach and that related to his use of Aleve p.m. I discussed findings with the patient his we will place him on some Pepcid and he will stop using the Aleve p.m. Otherwise he appears hemodynamically compensated. His second trop was decreased slightly despite the hours of pain. We will test of the patient prior to discharge and he was extremely dizzy and lightheaded and had near syncope. We administered 500 mils of fluid and he felt improved. I suspect we over diuresed patient with intravenous Lasix today. I suspect his major problem today was not the shortness of breath was the abdominal pain which is I suspect related to his use of Aleve. The patient's is inquiring about hospice and when that may be needed. The patient appears compensated today but he seems quite tenuous. Departure - Departure Disposition: 01 Home, Self Care Clinical Impression: Gastritis Qualifiers: Gastritis type: unspecified gastritis Chronicity: acute Gastritis bleeding: without bleeding Qualified Code(s): K29.00 - Acute gastritis without bleeding Condition: Stable Instructions: ED PUD Vs Gastritis Follow-Up: Fausto Arellano MD [Primary Care Provider] - Comments: Today it appears the pain you are having in your chest related to your esophagus or stomach and the recommendation is to stop taking the Aleve p.m. and take some Pepcid on a regular basis for at least 2 weeks.The remainder of your diagnostics today appear to show you have a compensated failure. Discharge Date/Time: 12/13/18 15:23
--- NOTE | 2018-12-13 09:31 | XRAY Report ---
Reason: chest pain Procedure Date: 12/13/2018 Accession Number: [id number] / [id number] Procedure: XR - Chest 1 View X-Ray CPT Code: 77879 FULL RESULT: EXAM: CHEST RADIOGRAPHY EXAM DATE: 12/13/2018 09:08 AM. CLINICAL HISTORY: Chest pain. COMPARISON: CHEST 1 VIEW 11/26/2018 10:56 AM. TECHNIQUE: 1 view. FINDINGS: Lungs/Pleura: Irregular opacities in the right lung base with increased interstitial markings in the right and left lungs. Mediastinum: Within exam limitations, the cardiomediastinal contour is normal. Other: None. IMPRESSION: Irregular opacities in the right lung base with diffuse increased interstitial markings, similar to the prior examination. RADIA
[2018-12-13 09:36] LABS: BASOPHILS % (AUTO) 0.4 %; EOSINOPHILS # (AUTO) 0.2 10^3/uL (0.0-0.7); EOSINOPHILS % (AUTO) 1.7 %; HGB - HEMOGLOBIN 11.6 g/dL (14.0-18.0); LYMPHOCYTES # (AUTO) 0.6 10^3/uL (1.5-3.5); LYMPHOCYTES % (AUTO) 5.6 %; MEAN CORPUSCULAR HEMOGLOBIN 24.9 pg (27.0-31.0); MEAN CORPUSCULAR HGB CONC 30.2 g/dL (32.0-36.0); MEAN CORPUSCULAR VOLUME 82.6 fL (80.0-94.0); MEAN PLATELET VOLUME 9.6 fL (7.4-11.4); MONOCYTES % (AUTO) 10.1 %; NEUTROPHILS # (AUTO) 8.2 10^3/uL (1.5-6.6); NEUTROPHILS % (AUTO) 81.5 %; PLT - PLATELET COUNT 121 10^3/uL (130-450); RED BLOOD COUNT 4.65 10^6/uL (4.70-6.10); RED CELL DISTRIBUTION WIDTH 17.2 % (12.0-15.0); WHITE BLOOD COUNT 10.1 x10^3/uL (4.8-10.8)
[2018-12-13 09:49] LABS: ALBUMIN 3.8 g/dL (3.2-5.5); ALBUMIN/GLOBULIN RATIO 1.3 (1.0-2.2); BILIRUBIN,TOTAL 1.4 mg/dL (0.2-1.0); CALCIUM 9.5 mg/dL (8.5-10.3); CREATININE 1.6 mg/dL (0.6-1.2); TOTAL PROTEIN 6.7 g/dL (6.7-8.2)
[2018-12-13 10:24] LABS: BILIRUBIN,URINE NEGATIVE (NEGATIVE); GLUCOSE, URINE (UA) NEGATIVE (NEGATIVE); KETONES,URINE (UA) NEGATIVE (NEGATIVE); LEUKOCYTE ESTERASE, URINE NEGATIVE (NEGATIVE); NITRITE,URINE NEGATIVE (NEGATIVE); OCCULT BLOOD,URINE NEGATIVE (NEGATIVE); PROTEIN,URINE NEGATIVE (NEGATIVE); UROBILINOGEN,URINE 0.2 (NORMAL) E.U./dL (NORMAL)
[2018-12-13 10:27] LABS: CLARITY,URINE CLEAR (CLEAR)
[2018-12-13] MEDS ORDERED: LIDOCAINE VISCOUS 2% 15 ML UDC MM STA ×2 (10:54→11:33)
[2018-12-13] MEDS ORDERED: MAG HYDROX/AL HYDROX/SIMETH 30 ML UDC PO STA ×2 (10:55→11:33)
[2018-12-13] MEDS ORDERED: SUCRALFATE 1 GM/10 ML UDC PO STA (11:33)
[2018-12-13] MEDS ORDERED: FAMOTIDINE 20 MG/2 ML VIAL IVP STA (12:06)
[2018-12-13] MEDS ORDERED: SODIUM CHLORIDE 0.9% 500 ML IV ONE (14:13)
[2018-12-13 14:30] VITALS: BP 126/78
== END 2018-12-13 15:23 | disposition home or self-care (01) ==
LOC: EDUNIT# → ED 08:49
DX: K29.00 Acute gastritis without bleeding (principal); R09.02 Hypoxemia; I11.0 Hypertensive heart disease with heart failure; I50.9 Heart failure, unspecified; J84.10 Pulmonary fibrosis, unspecified; M32.9 Systemic lupus erythematosus, unspecified; Z79.82 Long term (current) use of aspirin
CPT/HCPCS: 36415; 71045; 80053; 81003; 83690; 83880; 84484; 85025; 93005; 96374; 96375; 99284; A9270; 81001; 87086

== ENCOUNTER 2019-01-09 20:17 | Outpatient (CLI) | payer MEDICARE, OTHER ==
--- NOTE | 2019-01-09 20:21 | CONSULTATION NOTE ---
Palliative Care Follow Up - Referral Referring Provider: Dr. 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 Most recently hospitalization 11/26 to 11/27 at [facility] for CHF exacerbation. At that point in time patient was started on Spironolactone and low-dose Lasix, He did have an echo that showed left ventricular systolic function is normal with an ejection fraction of 60 to 65%, severe right atrial enlargement, moderate mitral regurg moderate to severe tricuspid regurg, and severely abnormal right heart pressures. There was also found an evidence of a patent form of overall versus atrial septic defect with left to right shunting. Patient reports the changes he has noticed disease had to be on oxygen more continuously, more shortness of breath with any kind of activity, significant fatigue and less activity tolerance overall. Patient remains quite frail, has no appetite but has had no weight loss, finding it less enjoyable to read and more difficulty with concentration. His other issue is he did have an ED visit for severe chest pain, at that point time was found to have gastric distress, had received a "cocktail" with resolution of chest pain and discomfort. He has been managed since then on Pepcid. This is my first meeting with patient and , previous palliative care MELTER ASSISTANT has left the area. Time spent on eliciting goals, focuses on quality of life and comfort measures, is quite anxious about when transition to hospice should occur, they do not want to do anything to prolong suffering, but do want to treat for symptoms that are reversible. Patient and do pursue most of their primary care through Dr. Eula Contreras ND, using supplements and laser treatments. They feel given patient's long-term chronic disease processes, this does appear to be a good match for how they perceive their current pursuit of healthcare beliefs at this point. Exam patient is quite short of breath with any kind of activity, his O2 sats at rest on room air are 93%, patient does desat rapidly with any kind of activity including ambulation of 10 to 15 feet, with recovery from 86% up to 92% over 4 to 5 minutes. With oxygen on at 3 L patient does sit between 94-96%, patient has often taken off his oxygen when he goes to the bathroom or has any activity. Patient and counseled this is the time that he does need the oxygen, they have been increasing it on their own, instructed to only have oxygen so patient's O2 sats greater than 92-94%, this appears to be at about 3 liters, can increase up to 4 liters for activity. Does feel like he is deteriorating and this is mostly driven by his feeling of breathlessness in need of oxygen. Social History - Living Situation Living arrangement: At home Living Situation: With spouse/s.o. Support System: Patient is , has lived on [facility] for [place] years with his second , he has 2 sons and a daughter, his spouse has 2 daughters. 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 Unfortunately has had to give up gardening which is his left, he has a beautiful garden and home. They do feel like they have a supportive community, and are focused on receiving their health care close to home. Medications/Allergies - Medications Home Medications: Ambulatory Orders Medication Instructions Recorded Confirmed Prednisone 5 mg PO DAILY 06/07/18 01/10/19 Cannabidiol (Cbd) Extract 25 mg PO BID PRN 07/23/18 01/10/19 [Epidiolex] Honey [Manuka Honey] 15 ml PO DAILY 07/23/18 01/10/19 Aspirin [Adult Aspirin Regimen] 81 mg PO DAILY 09/04/18 01/10/19 Gabapentin/Lidocaine Compound 1 ea TOP DAILY PRN 09/04/18 01/10/19 Cavilon Cream 1 applic TOP PRN PRN 11/26/18 01/10/19 Psyllium [Metamucil] 1 each PO DAILY 11/26/18 01/10/19 Vitamin B Complex/Folic Acid 1.2 mg PO DAILY 11/26/18 01/10/19 [B-Complex Tablet] Furosemide 10 mg PO DAILY #30 tablet 11/27/18 01/10/19 Magnesium Oxide [Mag Ox] 400 mg PO DAILYWM #30 tablet 11/27/18 01/10/19 Spironolactone 25 mg PO DAILY #30 tablet 11/27/18 01/10/19 Famotidine [Pepcid] 40 mg PO DAILY 01/10/19 01/10/19 - Allergies Allergies/Adverse Reactions: Allergies Allergy/AdvReac Type Severity Reaction Status Date / Time Sulfa (Sulfonamide Allergy Emesis Verified 12/13/18 08:51 Antibiotics) Review of Systems - Constitutional Constitutional: reports: Fatigue (worsening), Weight stable. denies: Fever, Chills - Eyes Eyes: reports: Vision loss, Corrective lenses - Ears, Nose & Throat Ears, Nose & Throat: reports: Postnasal drainage, Dry mouth - Cardiovascular Cardiovascular: reports: Lightheadedness, Exertional dyspnea, Decr. exercise tolerance. denies: Edema - Respiratory Respiratory: reports: SOB at rest, SOB with exertion. denies: Cough - Gastrointestinal Gastrointestinal: reports: Early satiety, Good appetite. denies: Constipation, Diarrhea, Nausea, Reflux/heartburn (resolved) - Genitourinary Genitourinary: reports: Frequency, Urgency - Musculoskeletal Musculoskeletal: reports: Muscle aches, Stiffness, Limited range of motion, Muscle weakness, Joint pain (hands and feet) - Integumentary Integumentary: reports: Dryness, Other (decub coccyx) - Neurological Neurological: reports: General weakness, Abnormal gait - Psychiatric Psychiatric: denies: Depression, Anxiety - Hematologic/Lymphatic Hematologic/Lymphatic: reports: Anemia. denies: Recurrent infections - All Other Systems All Other Systems: reports: Reviewed and negative Physical Exam - Vital Signs Temperature: 96.7 C Pulse Rate: 77 (@ rest 110 with activity) Respiratory Rate: 20 O2 Saturation: 96 (3 liters at rest) Blood Pressure: 112/64 - Physical Exam General Appearance: positive: No acute distress, Alert Eyes Bilateral: positive: Normal inspection ENT: positive: No signs of dehydration Neck: positive: No JVD, Trachea midline Cardiovascular: positive: Regular rate & rhythm, Tachycardia (with any activity up to 110 with ambulation of 40 feet) Respiratory: positive: Diminished throughout. negative: No respiratory distress (with activity respiratory effort), Wheezes, Rales, Rhonchi Abdomen: positive: Non-tender, Soft Skin: positive: Pallor, Dryness, Pressure wound (right buttock 1.2 cm oval flush and filling in; and coccyx bright red < .05 cm with tunneling effect) Extremities: positive: No pedal edema, Other (gait shuffled and balance suspect) Neurologic/Psychiatric: positive: Oriented x3, Mood/affect nml, Weakness Palliative Care - POLST Patient has POLST: Yes POLST Status: DNR, Selective Treatment Pain: Pain improved, Location ("travels" PHN right chest/left ribs/back; using topical gabapentin/lidocaine) Tiredness/Fatigue: Severe (7-10) Drowsiness/Sedation: Moderate (4-6) Nausea: None Depression: Mild (1-3) Anxiety: Mild (1-3) Dyspnea: Severe (7-10), Comment (feels breathing is continuing to deteriorated) Anorexia: Mild (1-3) Sleep: Sleeps well Constipation: No, Comment (runs loose) Feelings of wellbeing/Perceived Quality of Life: Fair, Acceptable, Worsening Performance Status: Patient does report decreased activity tolerance, less able to have sustained activity. is needing to help him in the office, is bending most of his time sitting reading or sleeping in the chair. He is able to ambulate short distances though his gait appears somewhat unbalanced and he tires easily as well as becomes hypoxic. Patient has had to give up many of his household tasks as well as gardening, he does perceive and is experiencing functional decline. - Palliative Care Discussion: Patient with recent acute hospitalization and ED visit, this has increased 's anxiety as far as patient's pending decline related to his underlying serious comorbidities. Patient is fairly pragmatic, denies anxiety or worry, does admit to grief and loss regarding activities and things that he used to enjoy and do. with multiple questions regarding hospice, hospice transition, and what to do if patient were to have an unexpected . This was reviewed with her with decrease of anxiety. Patient remains quite fragile, but does not quite meet hospice criteria yet, will continue to evaluate in the context of patient and family goals Results - Lab Results Lab results reviewed: Yes Impression and Recommendations - Palliative Care Impression: This is an 83-year-old gentleman with very complicated medical history, with recent acute exacerbation of CHF, and worsening pulmonary hypertension, history of pulmonary fibrosis, and systemic lupus erythematosus. Patient does have progressive fatigue, increasing dyspnea, functional decline, and decreasing quality of life. Palliative care to provide support for symptom management and anticipatory guidance until patient appropriate and ready to transition to hospice. Recommendations/Counseling Done: 1. Hypoxia. This is multifactorial in origin, patient mostly oxygen dependent, has not been using oxygen with activity. This is actually when patient has increased need, counseling provided regarding the role of oxygen in the management of fatigue, hypoxia, and setting of pulmonary fibrosis. Patient's been instructed to wear on a regular basis, at 3 L appears to be adequate flow rate, can increase to 4 L with activity. Patient does find this quite "tethering", but discussed this would improve her assist with management of his fatigue. 2. Pulmonary hypertension. Patient with worsening numbers, was started on Spironolactone and low-dose Lasix, patient has been compliant with regimen. Patient shows no signs or symptoms of fluid retention, breath sounds are diminished throughout but clear. Did recommend follow-up with night clerk auditor, given his most recent hospitalization and echo, to make sure he is maximized on medical therapy and in agreement with treatment plan. 3. Postherpetic neuralgia. This appears to be fluctuating in nature, they are using the topical intermittent gabapentin/lidocaine with good relief. 4. Insomnia. Patient had to give up his Aleve p.m. They are using "deep sleep" with THC and CBD with good response. 5. Chest pain. Patient has not had any recurrence of his chest pain, he is taking his Pepcid daily with no signs or symptoms of heartburn or acute distress. 6. Stage II decub on coccyx. Patient is quite sedentary, suspect this is recurrence. Patient's is putting on antibiotic ointment, instructed not to use antibiotic ointment on area, keep it clean and dry and apply zinc barrier cream for healing. Patient instructed on offloading and repositioning more frequently. He does have appropriate pressure relief cushions and chairs. 7. Generalized weakness. Patient counseled on energy conservation, and encouraged to still keep active to tolerance. 8. Depression. Patient does have some persistent sadness, counseled regarding normal grief and loss process particularly with chronic illness and advanced aging. 9. Advanced Care planning. Goals of care reviewed continue to establish rapport with patient and , counseled addressed 's questions regarding hospice and time of procedures if unexpected. Time Spent: 60 minutes with greater than 50% of this done in counseling regarding anticipatory guidance, proper use of oxygen, treatment of decub, and setting of rapport with new palliative care MELTER ASSISTANT. Encouraged to set appointment with night clerk auditor, will fax echo as well as hospitalization notes when identified appointment time
== END 2019-01-09 20:18 | disposition home or self-care (01) ==
LOC: PC 20:17
PROVIDERS: ATTEND Nurse Practitioner Adult Health
DX: Z51.5 Encounter for palliative care (principal); R09.02 Hypoxemia; I27.20 Pulmonary hypertension, unspecified; B02.29 Other postherpetic nervous system involvement; L89.152 Pressure ulcer of sacral region, stage 2; G47.00 Insomnia, unspecified; R53.1 Weakness; F32.9 Major depressive disorder, single episode, unspecified; R07.9 Chest pain, unspecified; Z79.899 Other long term (current) drug therapy; Z79.82 Long term (current) use of aspirin; Z79.52 Long term (current) use of systemic steroids; Z99.81 Dependence on supplemental oxygen; Z66 Do not resuscitate
CPT/HCPCS: 99350

== ENCOUNTER 2019-01-17 16:30 | Outpatient (CLI) | payer MEDICARE, OTHER ==
--- NOTE | 2019-01-17 19:57 | CONSULTATION NOTE ---
Palliative Care Follow Up - Referral Referring Provider: Dr. Fausto Arellano Time of Visit: [id number] Referral setting: Home Referral Reason: AMS/Pulmonary HTN/Goals of Care - Information Sources Records reviewed: Previous records reviewed History/Review of Systems obtained from: Family ( [place]) Exam limitations: Clinical condition (patient lethargic and disorientated) - History of Present Illness Update Brief HPI Update: This is a complex 83-year-old gentleman with a significant history of multiple comorbidities including pulmonary hypertension, pulmonary fibrosis, history of systemic lupus erythematosus, avascular necrosis of the right femoral head, CKD stage III, 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 During his hospitalization in May was discovered to have a lympho-proliferative process going on with a history of weight loss, night sweats, and had seen Dr. Castro with recommendation for biopsy, which they chose not to follow up on. Note and concern today, as patient also has had intermittent hypercalcemia. Patient has been recently hospitalized early November at [facility] for CHF exacerbation, and severe abnormal right heart pressures, hes was also recently in ED with severe chest pain that was relieved with GI cocktail. I did see the patient last week, he is quite breathless with any kind of activity as well as hypoxic off of his oxygen. Patient at that point in time did admit he felt like he was deteriorating, and with this was driven by his feelings of breathlessness. He was so up and ambulatory, able to engage, and did not show any signs of acute decline I am seeing today. Patient's had reached out as patient's functional status a decline, looking for support. Patient presents with altered mental status, he is not oriented to time place or person. He has had multiple falls and is significantly weak. He is afebrile, does have some crackles in his right lower lobe, has been eating and drinking small amounts of food and fluid but is talking about coming to the green party, and has been confused now for a couple days. reports he has had some night sweats, on arrival he was off his oxygen, his O2 sats were 88%. After replacing it was 96%, does not present with respiratory distress, though does appear to have respiratory effort with any kind of conversation or movement in bed. Palliative care to have conversation unfortunately patient unable to engage in goals of care conversation at this point in time. This does default to the is decision-maker, she does perceive his quality of life and functional status is declining fairly rapidly. We discussed differential including pneumonia, hypercalcemia recurring, electrolyte abnormalities but would need further diagnostic work-up for underlying etiology. She does feel given the last few months, it they are ready to transition to comfort care and hospice support, she is just feeling overwhelmed how this is going to be managed with his current weakness and confusion. Social History - Living Situation Living arrangement: At home Living Situation: With spouse/s.o. Support System: This is a complicated blended family, there is a daughter coming to visit who has been estranged in the past, and concerned may not be supportive of her decision. He does have 2 sons who are coming as well patient has 2 daughters. 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 He loves gardening and has a beautiful garden and home. does feel like she can call and neighbors if needs further support, had already picked him up once off the floor[place] Medications/Allergies - Medications Home Medications: Ambulatory Orders Medication Instructions Recorded Confirmed Prednisone 20 mg PO DAILY 06/07/18 01/17/19 Cannabidiol (Cbd) Extract 25 mg PO BID PRN 07/23/18 01/17/19 [Epidiolex] Honey [Manuka Honey] 15 ml PO DAILY 07/23/18 01/17/19 Aspirin [Adult Aspirin Regimen] 81 mg PO DAILY 09/04/18 01/17/19 Gabapentin/Lidocaine Compound 1 ea TOP DAILY PRN 09/04/18 01/17/19 Cavilon Cream 1 applic TOP PRN PRN 11/26/18 01/17/19 Psyllium [Metamucil] 1 each PO DAILY 11/26/18 01/17/19 Vitamin B Complex/Folic Acid 1.2 mg PO DAILY 11/26/18 01/17/19 [B-Complex Tablet] Magnesium Oxide [Mag Ox] 400 mg PO DAILYWM #30 tablet 11/27/18 01/17/19 Spironolactone 25 mg PO DAILY #30 tablet 11/27/18 01/17/19 Famotidine [Pepcid] 40 mg PO DAILY 01/10/19 01/17/19 Azithromycin 1 tab PO DAILY 01/17/19 01/17/19 Morphine Sulfate [Morphine Sulf 5 mg PO .Q2 PRN 01/17/19 01/17/19 Oral (Roxanol)] - Allergies Allergies/Adverse Reactions: Allergies Allergy/AdvReac Type Severity Reaction Status Date / Time Sulfa (Sulfonamide Allergy Emesis Verified 12/13/18 08:51 Antibiotics) Review of Systems - Constitutional Constitutional: reports: Fatigue, Weakness, Poor appetite, Diaphoresis, Night sweats, Weight loss - Ears, Nose & Throat Ears, Nose & Throat: reports: Hearing loss - Cardiovascular Cardiovascular: reports: Exertional dyspnea, Decr. exercise tolerance - Respiratory Respiratory: reports: SOB at rest, SOB with exertion - Gastrointestinal Gastrointestinal: reports: Poor appetite - Genitourinary Genitourinary: reports: Incontinence - Musculoskeletal Musculoskeletal: reports: Muscle aches, Stiffness, Limited range of motion, Muscle weakness, Transfer issues (max assist transfer to commode; has fallen several times; impulsive) - Integumentary Integumentary: reports: Dryness - Neurological Neurological: reports: General weakness, Memory problems, Slurred speech - Psychiatric Psychiatric: reports: Depression, Anxiety, Delusions - All Other Systems All Other Systems: reports: Other (limited ROS unable to participate) Physical Exam - Vital Signs Temperature: 97.3 C Pulse Rate: 92 Respiratory Rate: 20 O2 Saturation: 88 (ra @ rest; 96% on 3 liters) Blood Pressure: 92/62 - Physical Exam General Appearance: positive: Lethargic Eyes Bilateral: positive: Other (difficulty focusing) ENT: positive: No signs of dehydration (taking fluids and small amounts of food) Neck: positive: No JVD, Trachea midline Cardiovascular: positive: Regular rate & rhythm, Systolic murmur Respiratory: positive: No respiratory distress (with activity appears breathless), Diminished throughout, Rales (crackles RLL) Abdomen: positive: Non-tender, Soft Skin: positive: Pallor, Dryness, Pressure wound (coccyx) Extremities: positive: No pedal edema Neurologic/Psychiatric: positive: Disoriented to person, Disoriented to time, Weakness, Slurred/abnml speech, Depressed mood/affect, Flat affect Palliative Care - POLST Patient has POLST: Yes POLST Status: DNR, Comfort Measures (updated POLST) Pain: No pain (reported by patient denied) Tiredness/Fatigue: Severe (7-10) Drowsiness/Sedation: Severe (7-10) Nausea: None Performance Status: Patient with acute functional decline over the week, now needing maximum assist to transfer to the commode, has been mostly bedbound last 2448 hrs., is quite impulsive with his altered mental status and has had falls. Patient needs assistance with all ADLs. - Palliative Care Discussion: Attempted to have conversation with patient regarding goals of care, patient is quite confused. Thinks that there is some green party that needs to happen or be canceled. reports she is trying to talk to him earlier about a celebration of life for memorial plans. Discussed at length options as far as follow-up. Patient does present with an acute decline, would need follow-up as far as labs and/imaging. 's perception, as patient does not benefit with hospitalizations and continues to decline both functionally and cognitively. Does not perceive patient's quality of life as improving but deteriorating. Patient has difficulty talking about what he wants or does not want, but is quite proud and is finding it quite difficult to be incontinent, dependent, and feels guilty overall per her report. Patient does have multiple comorbidities, any of which could be adding to his current decline. Do suspect possibly hypercalcemia giving his mental status, and/or pneumonia given his immunocompromise. She is the decision maker, does feel it will be complicated to have further discussion with his children, we did discuss we could empirically increase his prednisone as well as try a Z-Josiah in the context of easy interventions and avoiding ED and/or hospitalization with moving on to transition to hospice. Unfortunately hospice does not have an opening until mid week next week, we did discuss short-term plan in the context of easing caregiving burden. She will have the help of her children over the weekend, her daughter is coming on Monday and they are looking at hiring some assistance. Counseling provided regarding the hospice benefit but would still need [facility] care. She has been thinking about placement as well, but given his acute decline would like to keep him at home with appropriate support. Counseling provided for patient at this point appears to be having acute decline and would expect to lead to end-of-life event, patient has had fluctuations in the past and may or may not respond to treatment, but is on a prolonged downhill course over this last year. would like to focus on comfort, transition to hospice when service available. Impression and Recommendations - Palliative Care Impression: This is a fragile 83-year-old gentleman who has had ongoing decline over this last year, including pulmonary hypertension, pulmonary fibrosis, and lympho- proliferative process. He presents acutely with altered mental status, of unknown etiology and functional decline with weakness. After much discussion, patient unable to participate in decision-making does not present with decision- making capacity, has chosen given his poor quality of life and deteriorating status to keep him at home, no further hospitalization, and transition to hospice. Recommendations/Counseling Done: 1. Altered mental status. This is most likely multifactorial in origin, with unknown confirmed etiology. Patient currently bedbound, would need to ED/hospitalization for further work-up. Goals of care to focus on comfort, will go ahead and treat given his crackles right lower lobe, and acute change in status with azithromycin, and increase his prednisone to 20 mg daily, knowing also may be hypercalcemia. Patient is still taking sips of fluid, encouraged increasing fluid intake as patient tolerates but needs to be safe and awake. We will discontinue 10 mg of Lasix given patient's hypotension. If patient continues to have decreased intake instructed to decrease Spironolactone by half tab as well. 2. Generalized weakness. Patient is quite weak, increased difficulty with weightbearing. Increased difficulty transitioning and transferring to commode. We will go ahead and order hospital bed to [facility], they are able to deliver tomorrow. They will set this up for further safety and ability to transfer him and care for him more easily. She is trying to hire some assistance, as well she has her stepchildren coming for the weekend and feel they would be able to help with any kind of physical care. 3. Advanced care planning. Discussed at length weighing benefits of burdens of ED/hospitalization/transition to comfort and hospice care. POLST completed with focus on comfort care and no transfer to hospital. Counseling provided regarding hospice benefit, if patient were to acutely before admitted to hospice, as well as ability to change her mind if chooses otherwise to further pursue work up or intervention. Did provide prescription for morphine 5 mg every 2 hours, if patient were to demonstrate any acute distress and or pain she would have a tool available. Counseling provided regarding use. Time Spent: 60 minutes with greater than 50% of this done in counseling regarding goals of care, creating short and long-term plan, coordination of care with hospice.
== END 2019-01-17 16:31 | disposition home or self-care (01) ==
LOC: PC 16:30
PROVIDERS: ATTEND Nurse Practitioner Adult Health
DX: Z51.5 Encounter for palliative care (principal); R41.0 Disorientation, unspecified; R32 Unspecified urinary incontinence; R53.1 Weakness; R09.89 Other specified symptoms and signs involving the circulatory and respiratory systems; Z79.52 Long term (current) use of systemic steroids; Z79.899 Other long term (current) drug therapy; I95.9 Hypotension, unspecified; I27.20 Pulmonary hypertension, unspecified; I50.9 Heart failure, unspecified; N18.3 Chronic kidney disease, stage 3 (moderate); J84.10 Pulmonary fibrosis, unspecified; M32.9 Systemic lupus erythematosus, unspecified; Z91.81 History of falling; Z66 Do not resuscitate; Z99.81 Dependence on supplemental oxygen; Z74.01 Bed confinement status
CPT/HCPCS: 99350